=== PATIENT | female | born 1950 | race Caucasian/White ===

== ENCOUNTER 2016-06-11 17:33 | Emergency (ER) | payer MEDICARE ==
[2016-06-11 17:56] VITALS: BP 122/85
[2016-06-11] MEDS ORDERED: methylPREDNISolone 125 MG* 2 ML VIAL IM ONE (18:24)
[2016-06-11] MEDS ORDERED: Ipratropium 0.5MG/2.5ML NEB* 0.5 MG/2.5 ML NEB.SOLN INH ONE (18:24)
[2016-06-11] MEDS ORDERED: Albuterol 2.5 MG/3 ML NEB.SOL* (0.083%) INH ONE (18:24)
--- NOTE | 2016-06-11 18:24 | UC ---
Respiratory Complaint HPI - History of Current Complaint Chief Complaint: UCRespiratory Stated Complaint: COUGH/ABD AND SIDE PAIN Time Seen by Provider: 06/11/16 18:06 Hx Obtained From: Patient Hx Last Menstrual Period: unknown ?: No Onset/Duration: Sudden Onset, Lasting Weeks - 1, Worse Since - at night Timing: Constant Severity Initially: Mild Severity Currently: Moderate Associated Signs And Symptoms: Positive: Dyspnea, Chills, Pleuritic Chest Pain - with coughing, Wheezing, URI, Nasal Congestion, Sinus Discomfort Related History: Seasonal Allergies - Risk Factors Cardiac Risk Factors: Family History Pseudomonas Risk Factors: Negative - Allergies/Home Medications Allergies/Adverse Reactions: Allergies Allergy/AdvReac Type Severity Reaction Status Date / Time Adhesive Tape AdvReac Intermediate Rash Verified 06/11/16 17:56 ENVIRONMENTAL/SEASONAL Allergy ASTHMA Uncoded 06/11/16 17:56 FLAREUPS Home Medications: Home Medications Losartan TAB* [Cozaar TAB*] 50 mg PO BID 06/11/16 [History Confirmed 06/11/16] PMH/Surg Hx/FS Hx/Imm Hx Endocrine History Of: Reports: Diabetes - non insulin dependent Cardiovascular History Of: Reports: Hypertension Respiratory History Of: Reports: Asthma - MILD ASTHMA GI/ History Of: Reports: Kidney Stones - HAS HAD LASER FOR STONES; PRESENTLY ON THE LEFT- - Surgical History Surgical History: Yes Surgery Procedure, Year, and Place: APPY AGE 3. TONSILLECTOMY AGE 12-[facility]. LEFT HIP FRACTURE 11/2009 PIN/PLATE-[facility]. KIDNEY STONES X2 2010-[facility] - Family History Known Family History: Positive: Cardiac Disease, Hypertension, Diabetes - Social History Occupation: Retired Lives: With Family Alcohol Use: Rare Substance Use Type: None Smoking Status (MU): Former Smoker Type: Cigarettes Have You Smoked in the Last Year: No When Did the Patient Quit Smoking/Using Tobacco: - Immunization History Most Recent Influenza Vaccination: 03/06/15 Review of Systems Constitutional: Chills ENT: Sore Throat Respiratory: Shortness Of Breath - worse at night with wheezing., Cough Cardiovascular: Chest Pain - with coughing Neurological: Headache All Other Systems Reviewed And Are Negative: Yes Physical Exam Triage Information Reviewed: Yes Appearance: No Pain Distress, Ill-Appearing, Obese Vital Signs: Initial Vital Signs Temp 97.9 F 01/07/17 17:51 Pulse 81 06/11/16 17:51 Resp 16 06/11/16 17:51 BP 122/85 06/11/16 17:51 Pulse Ox 94 06/11/16 17:51 Vital Signs Reviewed: Yes Eyes: Positive: Conjunctiva Inflamed ENT: Positive: Pharynx normal, TMs normal Neck exam: Normal Respiratory: Positive: Wheezing - diffuse expiratory wheezes Cardiovascular: Positive: RRR, No Murmur Abdomen Description: Negative: Nontender - Tender upper abdominal wall. Musculoskeletal Exam: Normal Neurological Exam: Normal Psychological Exam: Normal Skin Exam: Normal UC Diagnostic Evaluation - Laboratory O2 Sat by Pulse Oximetry: 94 Re-Evaluation - Re-Evaluation First Eval Re-Evaluation Time: 18:45 Change: Improved - Able to take deep breaths. Wheezing significantly better. Respiratory Course/Dx - Differential Dx/Diagnosis Differential Diagnosis/HQI/PQRI: Asthma, Lower Resp Infection, Sinusitis Provider Diagnoses: Acute URI. Acute bronchospasm. Muscle strain abdominal wall. Discharge - Discharge Plan Condition: Stable Disposition: HOME Prescriptions: Acetaminop/Codeine 30 MG TAB* [Tylenol/Codeine 30 MG TAB*] 1 tab PO Q6H PRN #20 tab MDD 4 PRN Reason: Pain - Chest Amoxicillin (*) 875 mg PO BID #20 tab predniSONE TAB* [Deltasone TAB*] 20 mg PO DAILY #18 tab Patient Education Materials: Upper Respiratory Infection (ED), Bronchospasm (ED ), Prednisone (By mouth), How to Use a Metered-Dose Inhaler (ED), Sinusitis (ED) , Amoxicillin (By mouth) Referrals: Gege Espino MD [Primary Care Provider] - 2 Days (Recheck to make sure improving.)
[2016-06-11] MEDS ORDERED: Albuterol HFA INHALER* 8 gm MDI INH ONE (18:44)
[2016-06-11] MEDS ORDERED: Amoxicillin PO (*) 500 MG CAP PO ONE (18:51)
== END 2016-06-11 19:19 | disposition home or self-care (01) ==
LOC: UCCORT 17:33
DX: J06.9 Acute upper respiratory infection, unspecified (principal); J98.01 Acute bronchospasm; S39.011A Strain of muscle, fascia and tendon of abdomen, initial encounter; X58.XXXA Exposure to other specified factors, initial encounter; Y93.9 Activity, unspecified; Y92.9 Unspecified place or not applicable; Z87.891 Personal history of nicotine dependence
CPT/HCPCS: 96372; 99213; A9270-GY; G0463; J2930; J7644

== ENCOUNTER 2017-04-16 15:43 | Inpatient (IN) | payer MEDICARE, OTHER ==
[2017-04-16] MEDS ORDERED: Diltiazem IV* 5 MG/ML 5 ML VIAL (for loading dose/IV Push) (25 MG) IV SLOW PU ONE (16:11)
[2017-04-16] MEDS ORDERED: Diltiazem DRIP* 100 MG/100 ML ADDV.BAG IVPB ONE (16:11)
[2017-04-16 16:21] LABS: Hematocrit 36 % (35-47); Hemoglobin 12.2 g/dl (12.0-16.0); Mean Corpuscular HGB Conc 34 g/dl (31-36); Mean Corpuscular Hemoglobin 30 pg (27-31); Mean Corpuscular Volume 88 fL (80-97); Mean Platelet Volume 9 um3 (7.4-10.4); Red Blood Count 4.09 10^6/ul (4.0-5.4); Red Cell Distribution Width 13 % (10.5-15); White Blood Count 25.7 10^3/ul (3.5-10.8)
[2017-04-16 16:23] LABS: Add Diff/Slide Review? Slide Review Added; Comments Flag Yes
[2017-04-16 16:33] LABS: Albumin 3.5 g/dL (3.2-5.2); Calcium 10.3 mg/dL (8.6-10.3); EGFR African American 36.6 (>60); EGFR Non-African American 28.4 (>60); Globulin 3.6 g/dL (2-4); Magnesium 1.6 mg/dL (1.9-2.7); Potassium 3.2 mmol/L (3.5-5.0); Total Bilirubin 0.8 mg/dL (0.2-1.0); Total Protein 7.1 g/dL (6.4-8.9)
[2017-04-16 16:38] LABS: Troponin I 0.06 ng/mL (<0.04)
[2017-04-16] MEDS ORDERED: Magnesium Sulfate 2 GM IV* 2 GM/50 ML BAG IVPB ONE (16:52)
--- NOTE | 2017-04-16 17:06 | RAD ---
INDICATION: Short of breath chest x-ray COMPARISON: Chest x-ray April 26, 2015 TECHNIQUE: An AP portable view obtained at 1644 hours is submitted. FINDINGS: Bones/Soft Tissues: There are no acute bony findings. Cardiomediastinal: The cardiac silhouette is difficult to evaluate given the airspace disease in the left chest. The mediastinum is shifted to the left Lungs: The right lung is clear. There is opacification of the lower three quarters of the left hemithorax. Pleura: Suspect left-sided pleural fluid. Other: Possible eventration left hemidiaphragm. IMPRESSION: VOLUME LOSS LEFT CHEST WITH NEAR COMPLETE OPACIFICATION OF THE LEFT HEMITHORAX. SUGGEST CONTRAST ENHANCED CT IMAGING OF THE CHEST.
[2017-04-16] MEDS ORDERED: NS 0.9% 1000 ML* 2,000 ML IV ONE (17:25)
[2017-04-16 17:32] LABS: TSH (Thyroid Stimulating Horm) 1.68 mcIU/mL (0.34-5.60)
--- NOTE | 2017-04-16 17:36 | RAD ---
INDICATION: Abnormal chest x-ray . Cough. COMPARISON: Chest x-ray same date; CT abdomen pelvis November 14, 2015 TECHNIQUE: Axial source images were obtained from the thoracic inlet to the symphysis pubis. This examination was ordered using without oral or intravenous contrast and therefore has inherent limitations when used to evaluate other intrathoracic, intra-abdominal, or intrapelvic pathology. Consider conventional contrast enhanced imaging if clinically CHEST FINDINGS: Neck/thyroid: The thyroid is heterogeneous with left lobe enlargement. There are left thyroid calcifications. Chest wall: There are no acute abnormalities of the bony thorax or chest wall. There is no supraclavicular, infraclavicular, or axillary lymphadenopathy. Lungs : There is volume loss in the left chest with mediastinal shift to left. There is extensive consolidative change/atelectasis. Within the limits of noncontrast examination no underlying mass is seen. However, bronchoscopy is indicated to evaluate for post obstructive process such is no endobronchial lesion or mucous plugging. The right lung is clear. Cardiomediastinal structures: Mediastinum is shifted to the left. The heart is normal in size. There is no pericardial effusion. No aneurysm is seen. There are are several lymph nodes in the prevascular space which are top normal in size. Pleura : Trace left-sided pleural fluid. ABDOMINAL/PELVIC FINDINGS: Liver: The liver is mildly enlarged. There is no mass on noncontrast evaluation. Gallbladder: There are no calcified gallstones. There is no evidence of wall thickening or pericholecystic fluid. Spleen: The spleen is normal in size. There is no mass on noncontrast evaluation. Pancreas: No focal pancreatic abnormality or ductal dilatation is seen.. Adrenal glands: There is no evidence of adrenal mass. Kidneys: Bilateral nonobstructive nephrolithiasis. There is resolution of right-sided hydronephrosis. No focal renal parenchymal mass is seen within the limits of noncontrast imaging. There is a retractor aortic left renal vein Adenopathy: There is no evidence of adenopathy by size criteria. Fluid collections: There are no free or localized fluid collections. Vessels: There are mild atherosclerotic changes of the aorta. There is no aneurysm. 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 GI tract: Limited without oral contrast. No obstructive process is identified. Evaluation of the rectum and sigmoid colon is further limited due to beam hardening artifact from bilateral orthopedic hardware. Pelvic organs: Limited evaluation due to beam hardening artifact Bladder: Limited evaluation due to beam hardening artifact. Abdominal and pelvic soft tissues: The extraperitoneal abdominal and pelvic soft tissues appear normal.. Osseous structures: No acute osseous change. Spondylitic change of the thoracolumbar spine. There is total hip replacement the right. There is a Amador screw on the left. IMPRESSION: 1. Imaging was requested without oral or intravenous contrast limiting to inherent limitations. 2. Extensive patchy consolidative changes on the left consistent with infiltrate or atelectasis. Suggest bronchoscopy to evaluate for an endobronchial lesion or mucous plugging. Suggest follow-up radiographs and/or contrast enhanced CT imaging the chest. 3. Mild hepatomegaly. 4. Bilateral nonobstructive nephrolithiasis 5. Limited evaluation of uterus and bladder due to beam hardening artifact from orthopedic procedures.
[2017-04-16] MEDS ORDERED: Digoxin IV* 0.5 MG/2 ML AMP (0.25 MG/ML) IV SLOW PU ONE ×2 (17:49→23:50)
[2017-04-16] MEDS ORDERED: Levofloxacin 750 MG IVPREMIX(* 750 MG/150 ML BAG IVPB ONE (17:51)
[2017-04-16] MEDS ORDERED: Potassium Chlor TAB* 20 MEQ TAB.ER PO ONE (17:53)
[2017-04-16] MEDS ORDERED: Piperacillin/Tazobac ADVAN(*) 3.375 GM in NS 0.9% 100 ML* 100 ML IVPB ONE (17:55)
[2017-04-16] MEDS ORDERED: Amiodarone 150 MG IVPREMIX* 150 MG/100 ML BAG IV ONE (18:00)
[2017-04-16] MEDS ORDERED: Zosyn per Pharmacy* NOTE FOLLOW UP SCH (18:00)
[2017-04-16] MEDS ORDERED: Heparin VIAL(*) 5000 UNITS/ML VIAL (FIVE THOUSAND) IV SCH (18:00)
[2017-04-16] MEDS ORDERED: Heparin DRIP 25,000 UNITS(*) 25,000 UNITS/500 ML BAG IV SCH (18:00)
[2017-04-16] MEDS ORDERED: Amiodarone 360 MG IVPREMIX* 360 MG/200 ML BAG IV ONE (18:10)
[2017-04-16] MEDS ORDERED: Albuterol 2.5 MG/3 ML NEB.SOL* (0.083%) INH PRN (18:13)
[2017-04-16] MEDS ORDERED: Dextrose 50% Syringe 50 ML* 25 GM/50 ML SYRINGE IV PUSH PRN (18:17)
--- NOTE | 2017-04-16 18:37 | ED ---
Jovita Dee SooYoung, scribed for Aleksandar English MD on 04/16/17 at 1608 . Shortness of Breath - HPI Summary HPI Summary: A 67 y/o F presents to ED with c/o SOB onset 2-3 days ago. Associated sx: mild abd pain, unproductive cough, racing palpitations. Pt is unsure if she's had a fever recently. Aggravating factors: deep breaths. Pt took Robitussin to no relief. PMHx: DM, HTN. Pt is medication non-compliant. PCP is in [place]. - History of Current Complaint Chief Complaint: EDShortnessOfBreath Time Seen by Provider: 04/16/17 16:05 Hx Obtained From: Patient, Family/Blueprint Reproducer Onset/Duration: Lasting Days, Still Present Current Severity: Moderate Dyspnea At: Rest Aggrevating Factors: Deep Breaths Associated Signs & Symptoms: Cough (Nonproductive) Related History: Obesity - Allergy/Home Medications Allergies/Adverse Reactions: Allergies Allergy/AdvReac Type Severity Reaction Status Date / Time Adhesive Tape AdvReac Intermediate Rash Verified 06/11/16 17:56 ENVIRONMENTAL/SEASONAL Allergy ASTHMA Uncoded 06/11/16 17:56 FLAREUPS Home Medications: Home Medications A lbuterol Hfa (PREPAK) 2 puff INH Q6H PRN 04/16/17 [History Confirmed 04/16/17] Pioglitazone HCl [Pioglitazone HCl] 15 mg PO QAM 04/16/17 [History Confirmed 05/21] PMH/Surg Hx/FS Hx/Imm Hx Previously Healthy: No Endocrine/Hematology History: Reports: Hx Diabetes - non insulin dependent Cardiovascular History: Reports: Hx Hypertension Comment Only: Other Cardiovascular Problems/Disorders - HIGH CHOLESTEROL Respiratory History: Reports: Hx Asthma - MILD ASTHMA GI History: Reports: Hx Gastroesophageal Reflux Disease - CONTROLLED WITH MEDICATION History: Reports: Hx Kidney Stones - HAS HAD LASER FOR STONES; PRESENTLY ON THE LEFT- Musculoskeletal History: Reports: Hx Arthritis - BILAT. HIPS Sensory History: Reports: Hx Cataracts, Hx Contacts or Glasses - GLASSES Denies: Hx Hearing Aid Opthamlomology History: Reports: Hx Cataracts, Hx Contacts or Glasses - GLASSES - Surgical History Surgery Procedure, Year, and Place: APPY AGE 3. TONSILLECTOMY AGE 12-[facility]. LEFT HIP FRACTURE 11/2009 PIN/PLATE-[facility]. 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 The skin is warm and dry and skin color reflects adequate perfusion. HEENT: The head is normocephalic and atraumatic. The pupils are equal and reactive. The conjunctivae are clear and without drainage. Nares are patent and without drainage. Mouth reveals moist mucous membranes and the throat is without erythema and exudate. The external ears are intact. The ear canals are patent and without drainage. The tympanic membranes are intact. Neck is supple with full range of motion and non-tender. There are no carotid bruits. There is no neck vein distension. Respiratory: Chest is non-tender. There are decreased breath sounds on L. Cardiovascular: Heart is tachy and irregular. There is no murmur or rub auscultated. There is no peripheral edema and pulses are symmetrical and equal. Abdomen: The abdomen is soft and non-tender. There are normal bowel sounds heard in all four quadrants and there is no organomegaly palpated. Musculoskeletal: There is no back pain noted. Extremities are non-tender with full range of motion. There is good capillary refill. There is no peripheral edema or calf tenderness elicited. Neurological: Patient is alert and oriented to person, place and time. The patient has symmetrical motor strength in all four extremities. Cranial nerves are grossly intact. Deep tendon reflexes are symmetrical and equal in all four extremities. Psychiatric: The patient has an appropriate affect and does not exhibit any anxiety or depression. Triage Information Reviewed: Yes Vital Signs On Initial Exam: Initial Vitals Temp Pulse Resp BP Pulse Ox 99.9 F 103 24 99/80 89 04/16/17 15:51 04/16/17 15:51 04/16/17 15:51 04/16/17 15:51 04/16/17 15:51 Vital Signs Reviewed: Yes Diagnostics - Vital Signs Vital Signs Temp Pulse Resp BP Pulse Ox 04/16/17 15:51 99.9 F 103 24 99/80 89 - Laboratory Lab Results: Lab Results 04/16/17 04/16/17 04/16/17 Range/Units 16:05 16:05 16:05 WBC 25.7 H (3.5-10.8) 10^3/ul RBC 4.09 (4.0-5.4) 10^6/ul Hgb 12.2 (12.0-16.0) g/dl Hct 36 (35-47) % MCV 88 (80-97) fL MCH 30 (27-31) pg MCHC 34 (31-36) g/dl RDW 13 (10.5-15) % Plt Count 384 (150-450) 10^3/ul MPV 9 (7.4-10.4) um3 Neut % (Auto) 75.6 (38-83) % Lymph % (Auto) 17.1 L (25-47) % Levy % (Auto) 6.3 (1-9) % Eos % (Auto) 0 (0-6) % Baso % (Auto) 1.0 (0-2) % Absolute Neuts (auto) 19.4 H (1.5-7.7) 10^3/ul Absolute Lymphs (auto) 4.4 (1.0-4.8) 10^3/ul Absolute Monos (auto) 1.6 H (0-0.8) 10^3/ul Absolute Eos (auto) 0 (0-0.6) 10^3/ul Absolute Basos (auto) 0.3 H (0-0.2) 10^3/ul Absolute Nucleated RBC 0.02 10^3/ul Nucleated RBC % 0.1 INR (Anticoag Therapy) (0.89-1.11) APTT D-Dimer, Quantitative (Less Than 230) ng/mL Sodium 129 L (133-145) mmol/L Potassium 3.2 L (3.5-5.0) mmol/L Chloride 94 L (101-111) mmol/L Carbon Dioxide 23 (22-32) mmol/L Anion Gap 12 H (2-11) mmol/L BUN 41 H (6-24) mg/dL Creatinine 1.78 H (0.51-0.95) mg/dL Est GFR ( Amer) 36.6 (>60) Est GFR (Non-Af Amer) 28.4 (>60) BUN/Creatinine Ratio 23.0 H (8-20) Glucose 297 H (70-100) mg/dL Lactic Acid (0.5-2.0) mmol/L Calcium 10.3 (8.6-10.3) mg/dL Magnesium 1.6 L (1.9-2.7) mg/dL Total Bilirubin 0.80 (0.2-1.0) mg/dL AST 12 L (13-39) U/L ALT 12 (7-52) U/L Alkaline Phosphatase 70 (34-104) U/L Troponin I 0.06 H* (<0.04) ng/mL B-Natriuretic Peptide 194 H ( - 100) pg/mL Total Protein 7.1 (6.4-8.9) g/dL Albumin 3.5 (3.2-5.2) g/dL Globulin 3.6 (2-4) g/dL Albumin/Globulin Ratio 1.0 (1-3) TSH 1.68 (0.34-5.60) mcIU/mL 04/16/17 04/16/17 Range/Units 16:05 16:05 WBC (3.5-10.8) 10^3/ul RBC (4.0-5.4) 10^6/ul Hgb (12.0-16.0) g/dl Hct (35-47) % MCV (80-97) fL MCH (27-31) pg MCHC (31-36) g/dl RDW (10.5-15) % Plt Count (150-450) 10^3/ul MPV (7.4-10.4) um3 Neut % (Auto) (38-83) % Lymph % (Auto) (25-47) % Levy % (Auto) (1-9) % Eos % (Auto) (0-6) % Baso % (Auto) (0-2) % Absolute Neuts (auto) (1.5-7.7) 10^3/ul Absolute Lymphs (auto) (1.0-4.8) 10^3/ul Absolute Monos (auto) (0-0.8) 10^3/ul Absolute Eos (auto) (0-0.6) 10^3/ul Absolute Basos (auto) (0-0.2) 10^3/ul Absolute Nucleated RBC 10^3/ul Nucleated RBC % INR (Anticoag Therapy) 1.14 H (0.89-1.11) APTT Pending D-Dimer, Quantitative 388 H (Less Than 230) ng/mL Sodium (133-145) mmol/L Potassium (3.5-5.0) mmol/L Chloride (101-111) mmol/L Carbon Dioxide (22-32) mmol/L Anion Gap (2-11) mmol/L BUN (6-24) mg/dL Creatinine (0.51-0.95) mg/dL Est GFR ( Amer) (>60) Est GFR (Non-Af Amer) (>60) BUN/Creatinine Ratio (8-20) Glucose (70-100) mg/dL Lactic Acid 2.4 H* (0.5-2.0) mmol/L Calcium (8.6-10.3) mg/dL Magnesium (1.9-2.7) mg/dL Total Bilirubin (0.2-1.0) mg/dL AST (13-39) U/L ALT (7-52) U/L Alkaline Phosphatase (34-104) U/L Troponin I (<0.04) ng/mL B-Natriuretic Peptide ( - 100) pg/mL Total Protein (6.4-8.9) g/dL Albumin (3.2-5.2) g/dL Globulin (2-4) g/dL Albumin/Globulin Ratio (1-3) TSH (0.34-5.60) mcIU/mL Result Diagrams: 04/16/17 16:05 04/16/17 16:05 Lab Statement: Any lab studies that have been ordered have been reviewed, and results considered in the medical decision making process. - Radiology CXR Xray Interpretation: Positive (See Comments) - IMPRESSION: VOLUME LOSS LEFT CHEST WITH NEAR COMPLETE OPACIFICATION OF THE LEFT HEMITHORAX. SUGGEST CONTRAST ENHANCED CT IMAGING OF THE CHEST. ED physician has reviewed this report and agrees. Radiology Interpretation Completed By: Radiologist - CT A/P CT Interpretation: Positive (See Comments) - IMPRESSION: 1. Imaging was requested without oral or intravenous contrast limiting to inherent limitations. 2. Extensive patchy consolidative changes on the left consistent with infiltrate or atelectasis. Suggest bronchoscopy to evaluate for an endobronchial lesion or mucous plugging. Suggest follow-up radiographs and/or contrast enhanced CT imaging the chest. 3. Mild hepatomegaly. 4. Bilateral nonobstructive nephrolithiasis 5. Limited evaluation of uterus and bladder due to beam hardening artifact from orthopedic procedures. ED physician has reviewed this radiology report and agrees. CT Interpretation Completed By: Radiologist - EKG 1601 EKG Rhythm: Atrial Fibrillation - with rapid response Course/Dx - Course Course Of Treatment: Ms. Jacobo presented with a cough and SOB and while here, went into A-fib with RVR. She had no breath sounds on the left and a CXR showed a very large infiltrate. She was treated with cardizem, fluids and antibiotics. Before she went into A-fib, she was not tachy and didn't meet sepsis criteria. Her WBC's were markedly increased. - Diagnoses Provider Diagnoses: Pneumonia, Atrial fibrillation with rapid ventricular response - Physician Notifications Discussed Care of Patient With: Lisette Garner - hospitalist Time Discussed With Above Provider: 17:52 Instructed by Provider To: Admit As Inpatient - Critical Care Time Critical Care Time: 30-74 min Discharge - Discharge Plan Condition: Stable Disposition: ADMITTED TO [facility] Referrals: Gege Espino MD [Primary Care Provider] - The documentation as recorded by the Jovita bowman SooYoung accurately reflects the service I personally performed and the decisions made by me, Aleksandar English MD.
[2017-04-16] MEDS: Albuterol/Ipratropium NEB.SOL* Albuterol 2.5 MG/Ipratropium 0.5 MG 3 ML INH SCH ×2 (20:18→23:47)
[2017-04-16] MEDS: NS 0.9% 1000 ML* 1,000 ML IV SCH (20:24)
[2017-04-16] MEDS: Pantoprazole IV* 40 MG IV SCH (20:29)
[2017-04-16] MEDS: guaiFENesin ER TAB 600 MG PO SCH (20:29)
[2017-04-16] MEDS: methylPREDNISolone 125 MG* 2 ML VIAL IV SCH (20:29)
[2017-04-16] MEDS: guaiFENesin LIQ* 100 MG/5 ML UDC PO PRN (20:30)
[2017-04-16] MEDS: Acetaminophen TAB* 325 MG PO PRN (20:30)
[2017-04-16] MEDS: Potassium Chlor TAB* 20 MEQ TAB.ER PO SCH (20:30)
[2017-04-16] MEDS: Insulin LISPRO* 1 UNITS UNIT SUBCUT SCH (21:08)
[2017-04-16] MEDS: ZOSYN 3.375 GM Q8H per EXTENDED INFUSION IVPB SCH ×2 (22:04)
[2017-04-16 23:05] LABS: Urine Bacteria Absent (Absent); Urine Bilirubin Negative (Negative); Urine Glucose 1+(50 mg/dL) (Negative); Urine Nitrite Negative (Negative)
--- NOTE | 2017-04-17 01:54 | HP ---
CC: Dr. Gege Espino * MEDICINE HISTORY AND PHYSICAL: DATE OF ADMISSION: 04/16/17 PROVIDER: Prema Guajardo NP. ATTENDING PHYSICIAN: Dr. Lisette Garner * (dictated by Prema Guajardo NP) PRIMARY CARE PROVIDER: Dr. Gege Espino CHIEF COMPLAINT: Cough. HISTORY OF PRESENT ILLNESS: Ms. Jacobo is a 67-year-old female who came into the ED for further evaluation after starting with a cough approximately 3 to 4 days ago. The patient states that she has had a nonproductive cough as well as upper respiratory congestion and hoarseness. It has been ongoing for the past 4 days. When she coughs, she notes that she has significant pain on her left side, most particularly in the left lower quadrant of her abdomen. Again, the cough is nonproductive. She has been treating it with Robitussin, but states that this "makes me worse." She denies having any fevers, but does state that she has been having some hot flashes and has been utilizing a fan to keep herself cool. She reports decreased appetite and decreased p.o. intake, but denies chest pain or palpitations. She denies orthopnea. She does endorse a nonproductive cough as well as shortness of breath. She endorses left-sided abdominal pain with coughing and also she denies vomiting or diarrhea. She does state that she has had some dry heaving. She reports decreased urinary output, but denies any focal weakness or sensory loss, joint pains, chest pains , rashes or lesions. At baseline, she states "I do not walk very well." She attributes this to weakness and neuropathy. She has never taken anything for her neuropathy stating that her doctor said that she is "already on too many medications." Here in the ED, the patient's initial workup showed concerns for white blood cell count of 25.7, D-dimer of 388, sodium of 129, as well as potassium 3.2, magnesium 1.6, elevated BUN and creatinine. Lactic acid is 2.4, mildly elevated troponin of 0.06 and a chest x-ray and CT that showed significant consolidative changes on the left side. Patient's chest x-ray and CT scan are consistent with infiltrates. Additionally, the patient presented to the ED and was found to be in AFib with RVR with no prior known history. Her rates were as high as 160s to 180s. PAST MEDICAL HISTORY: Includes: 1. Type 2 diabetes with likely peripheral neuropathy. 2. Hypertension. 3. Hypercholesterolemia. 4. GERD. 5. History of kidney stones with lithotripsy. 6. Asthma. PAST SURGICAL HISTORY: Includes left hip fracture with internal fixation. HOME MEDICATIONS: 1. Albuterol 2 puffs inhaled q.6 hours p.r.n. 2. Metoprolol tartrate 100 mg b.i.d. 3. Gemfibrozil 600 mg b.i.d. 4. Clonidine 0.3 mg b.i.d. 5. Glipizide 10 mg b.i.d. 6. Metformin 1000 mg at 0800 and 1700. 7. Pioglitazone 15 mg q.a.m. 8. Losartan 50 mg b.i.d. 9. Hydrochlorothiazide 25 mg q.a.m. 10. Aspirin 81 mg q.a.m. ALLERGIES: Includes ADHESIVE TAPES and ENVIRONMENTAL AND SEASONAL ALLERGIES. FAMILY HISTORY: She reports lung disease in her mother and father. SOCIAL HISTORY: The patient reports a remote history of smoking and states that she did not smoke for very long. It was before she was . She denies alcohol or illicit drug use. She is not currently working. She lives at home with her . Liu Jacobo is also her surrogate decision maker. REVIEW OF SYSTEMS: A 12-point review of systems was completed. All pertinent positives and negatives are included in the HPI. All those not mentioned are negative. PHYSICAL EXAMINATION GENERAL: This is a 67-year-old female who appears older than stated age, who is lying in the ED stretcher. She is visibly tachypneic and working very hard. She appears acutely ill. VITAL SIGNS: Temperature 99.9, heart rate 142, respiratory rate 34, blood pressure 94/53, and O2 saturation is 95% on 5 L nasal cannula. HEENT: Head is atraumatic, normocephalic. Face is symmetrical. Pupils are equal, round, and reactive to light. Extraocular movements are intact. Oral mucosa is slightly dry. There is no oropharyngeal erythema or exudate. NECK: Supple. No JVD noted at this time. No lymphadenopathy appreciated. No carotid bruits heard. LUNGS: The patient has diminished lung sounds in the left side in all lobes with crackles heard in the lower lobe and wheezing heard throughout in the left side. The patient is using accessory muscles. CARDIAC: Tachycardic, irregular rate and rhythm. No murmurs, rubs or gallops noted. ABDOMEN: Soft, nondistended, mild tenderness with palpation especially to the left side. The patient does have positive CVA tenderness, left greater than right. EXTREMITIES: There is no peripheral edema. The patient has 2 + distal pulses throughout that are symmetric and equal. MUSCULOSKELETAL: The patient moves all extremities. Appears to have full range of motion to all extremities. SKIN: Limited assessment, but appears grossly intact. NEURO: Cranial nerves II through XII are grossly intact. Speech is clear. She is alert and oriented x4. Able to follow commands. No focal deficits noted. PSYCH: No agitation, anxiety, psychosis or depression noted. Affect is appropriate. LABORATORY DATA AND DIAGNOSTIC STUDIES: CBC: WBC 25.7, hemoglobin 12.2, hematocrit 36, platelet count 384. D-dimer 388. CMP: Sodium 129, potassium 3.2, chloride 94, carbon dioxide 23, BUN 41, creatinine 1.78, glucose 297, lactic acid 2.4, calcium 10.3, magnesium 1.6, total bilirubin 0.8, AST 12, ALT 12, alk phos 70. Troponin 0.06, BNP 194. Albumin 3.5. TSH 1.68. EKG shows atrial fibrillation with rapid ventricular rate of 186. No ST or T wave inversions to indicate acute ischemia. Chest x-ray shows volume loss of left chest with near complete opacification of the left hemithorax. CT of the chest, abdomen and pelvis, noncontrasted, shows extensive patchy consolidative changes on the left consistent with infiltrate or atelectasis. Suggest bronchoscopy to evaluate for an endobronchial lesion or mucus plugging. Suggest followup radiographs and contrast enhanced CT imaging of the chest. Mild hepatomegaly and bilateral nonobstructive nephrolithiasis. There is limited evaluation of the uterus and bladder due to beam hardening artifact from her orthopedic procedures. ASSESSMENT AND PLAN: This is a 67-year-old female with a past medical history significant for hypertension, type 2 diabetes, hypercholesterolemia, gastroesophageal reflux disease and asthma who presents today with concerns for new onset atrial fibrillation in the presence of left-sided pneumonia and sepsis. She will be admitted to the ICU for close monitoring. Plan is as follows: 1. Sepsis. The patient meets sepsis criteria on admission by systemic inflammatory response syndrome with elevated heart rate, tachypnea, leukocytosis , elevated lactic acid, hypoxia. The patient meets sepsis criteria on admission by SOFA criteria with a MAP of less than 70 as well as a qSOFA score of 2 for increased respiratory rate and systolic blood pressure less than 100. Per sepsis guidelines, the patient has received 2 L of IV fluids here in the ER. We will continue with aggressive hydration. Currently, the patient is ordered Zosyn to cover her pneumonia. Blood cultures have been ordered in the ER are pending. We will continue to follow and trend the patient's lactic acidosis until resolution. Additionally, we will complete the sepsis bundle by checking the patient's urine as there is a suspicion for potential infection there and monitor the patient in the ICU give her tenuous hemodynamic stability. 2. Left-sided pneumonia. Again, the patient has significant left-sided pneumonia. Etiology is unclear but includes post obstructive pneumonia with mucus plugging vs endobrachial lesion. Per CT, bronchoscopy was suggested, but given the patient's significant lung disease at this time, we will hold off on pursuing bronchoscopy this evening in order to focus on supporting the patient' s respiratory status, as well as providing antibiotic treatment for her pneumonia. Pulmonology could be consulted tomorrow. We will also be starting flutter valve therapy and treating the patient with IV steroids, and she is to receive Solu-Medrol q.8 hours for now. Again, she is ordered Zosyn. We will check a urine antigen for S. pneumoniae and legionella. The patient will be started on Vapotherm. 3. Acute hypoxic respiratory failure. Etiology is secondary to extensive left - sided pneumonia for which we will treat the patient with IV steroids as well as Vapotherm. 4. New onset paroxysmal atrial fibrillation. The patient denies any previously known history of atrial fibrillation. It is unclear as to how long she has been in atrial fibrillation, thought it may have been precipitated by sepsis. The patient was started on diltiazem drip here in the ED, but has significant hypotension from the diltiazem and likely secondary to the patient's sepsis. The patient's diltiazem has been stopped and we have switched to digoxin, which she will receive x2 doses and the patient has been started on amiodarone drip in order to help preserve the patient's blood pressure, especially in the presence of concomitant sepsis. The patient's CHAD2 VASC score is 4, which places her at a moderate to high risk and likely requires the patient to be on anticoagulation as an outpatient. Given her meal status, sepsis, need for steroids and other risk factors, we have opted to start her on a heparin drip at this time and could convert her to Eliquis or Xarelto once the patient becomes more hemodynamically stable. She does have an elevated D-dimer, which may be reflective of inflammatory causes in the presence of sepsis. Due to her renal function, we are unable to obtain a CT at this time, but given her new onset atrial fibrillation as well as her other risk factors for DVT, we will continue her on heparin drip, which should adequately treat the patient should she indeed have a pulmonary embolism. Once the patient stabilizes and hopefully if her renal function recovers, we could pursue a CTA, if indicated. The patient is ordered [id number] DuoNeb inhaler treatments per respiratory protocol as well as p.r.n. albuterol treatments. 5. Acute on chronic renal failure. I suspect the patient has a degree of chronic renal disease secondary to hypertension and diabetes as I do see that her creatinine on previous visits ranges from 0.96 to 1.55. The patient is only mildly above her baseline; however, I do suspect that she does have some acute process secondary to sepsis and dehydration. We will continue aggressive hydration and follow her renal function here in the hospital, her current GFR is 28.4. 6. Hyponatremia, likely secondary to dehydration. We will continue with IV fluids and follow her BMP tomorrow. 7. Hypokalemia, hypomagnesemia. Likely secondary to hydrochlorothiazide use at home as well as dehydration. Replete and follow labs in the morning. 8. History of type 2 diabetes. I will add on her A1c. The patient is on 3 different agents at home including metformin, glipizide, and pioglitazone, which we will hold. She will be on lispro sliding scale insulin given that she is now on IV steroids. I suspect that the patient's blood sugars will be elevated in the presence of steroid use and will likely require higher doses of the lispro and/or additional Lantus. Currently, we will start with lispro sliding scale and adjust as needed. 9. Hypertension. Currently not an issue as the patient is hypotensive in the presence of sepsis. We will hold her home antihypertensives and resume when appropriate. 10. Hypercholesterolemia. Hold gemfibrozil as the patient is not taking p.o very consistently. Resume when appropriate. 11. History of gastroesophageal reflux disease. She is not on any chronic medications. We will add on pantoprazole while here in the hospital. 12. FEN: The patient is on a consistent carbohydrate diet and IV fluids. 13. DVT prophylaxis: Heparin drip and SCDs. 14. Code status: The patient is a full code. TIME SPENT: Greater than 90 minutes was spent on this admission, which includes critical care time and more than half the time was spent [id number] with the patient obtaining history and physical, performing physical examination , reviewing the plan of care. Plan of care was also reviewed with my attending , Dr. Garner, who is in agreement. PREMA GUAJARDO NP [id number]/CPS #: [id number] BRAULIO
[2017-04-17] MEDS: Heparin VIAL(*) 5000 UNITS/ML VIAL (FIVE THOUSAND) IV SCH ×3 (03:35→21:30)
[2017-04-17] MEDS: methylPREDNISolone 125 MG* 2 ML VIAL IV SCH ×3 (03:36→20:17)
[2017-04-17] MEDS: Albuterol/Ipratropium NEB.SOL* Albuterol 2.5 MG/Ipratropium 0.5 MG 3 ML INH SCH ×6 (03:43→23:26)
[2017-04-17] MEDS: NS 0.9% 1000 ML* 1,000 ML IV SCH ×3 (04:36→20:54)
[2017-04-17 05:46] LABS: Hematocrit 31 % (35-47); Hemoglobin 10.4 g/dl (12.0-16.0); Mean Corpuscular HGB Conc 34 g/dl (31-36); Mean Corpuscular Hemoglobin 30 pg (27-31); Mean Corpuscular Volume 88 fL (80-97); Mean Platelet Volume 9 um3 (7.4-10.4); Red Blood Count 3.49 10^6/ul (4.0-5.4); Red Cell Distribution Width 13 % (10.5-15); White Blood Count 13.3 10^3/ul (3.5-10.8)
[2017-04-17 05:47] LABS: Add Diff/Slide Review? Slide Review Added; Comments Flag Yes
[2017-04-17 06:03] LABS: BUN/Creatinine Ratio 29.8 (8-20); EGFR African American 55.5 (>60); EGFR Non-African American 43.1 (>60); Magnesium 2.1 mg/dL (1.9-2.7); Potassium 4.1 mmol/L (3.5-5.0)
[2017-04-17] MEDS: ZOSYN 3.375 GM Q8H per EXTENDED INFUSION IVPB SCH ×6 (06:03→23:00)
[2017-04-17] MEDS: Insulin LISPRO* 1 UNITS UNIT SUBCUT SCH ×3 (07:53→17:25)
[2017-04-17] MEDS: Potassium Chlor TAB* 20 MEQ TAB.ER PO SCH ×2 (07:53→20:18)
[2017-04-17] MEDS: guaiFENesin ER TAB 600 MG PO SCH ×2 (07:53→20:18)
[2017-04-17] MEDS: guaiFENesin LIQ* 100 MG/5 ML UDC PO PRN (08:44)
[2017-04-17] MEDS: Heparin DRIP 25,000 UNITS(*) 25,000 UNITS/500 ML BAG IV SCH (11:40)
[2017-04-17] MEDS: Acetaminophen TAB* 325 MG PO PRN (17:08)
--- NOTE | 2017-04-17 19:18 | CONSULT ---
Consult Consult: Pulmonary consultation Date of consult :04/17/17 Consultation requested by : Dr Juno Spicer Reason for consultation: Abnormal CT chest CC: SOB, cough HPI: 67 y o f with remote h/o smoking presented for evaluation of cough, dry in nature initially, more moist and productive currently. Sx started as upper airway congestion and stuffiness and worsened with progressive cough and chest discomfort sec to cough. Reports hot flashes however has not measured fever. Also reports SOB. Reports decreased appetite and oral intake. Denies chest pain , palpitations, nausea, vomiting, diarrhea, headaches, rash. She was noted to have leucocytosis, elevated lactate, hyponatremia, elevated troponins, a.fib with RVR upon evaluation in ED. She was also hypoxic and was placed on supplemental O2, needing 4L at rest. She was started on broad spectrum abx for PNA and is currently in ICU. Pt was seen and examined at bedside. Pt reports no change in sx since admission. Denied recent sick contacts. No h/o breathing issues in past. I have personally reviewed CXR and CT chest and with pt- Evidence of atelectasis involving Lt lung and endobronchial lesion with near complete occlusion of KATHERYN and resultant atelectasis, no significant mediastinal or hilar adenopathy noted. PMHx: DM-2 with peripheral neuropathy HTN Dyslipidemia GERD Kidney stones Asthma PSHx: Lt hip fracture with internal fixation Home Medications Medication Instructions metFORMIN* [Glucophage 1000 MG TAB 1,000 mg PO 0800,1700 *] Aspirin Low Dose CHEW TAB* 81 mg PO QAM [Aspirin Low Dose TAB*] Cholecalciferol [Vitamin D3] 5,000 unit PO EVERY OTHER DAY Cyanocobalamin TAB* [Vitamin B12 500 mcg PO QAM TAB*] Metoprolol Tartrate TAB* 100 mg PO BID [Lopressor TAB*] Gemfibrozil TAB* [Lopid TAB*] 600 mg PO BID Glipizide [Glipizide ER] 10 mg PO BID Clonidine HCl [Clonidine HCl 0.3 0.3 mg PO BID MG] Hydrochlorothiazide TAB* 25 mg PO QAM [Hydrodiuril TAB*] Losartan TAB* [Cozaar TAB*] 50 mg PO BID A lbuterol Hfa (PREPAK) 2 puff INH Q6H PRN Pioglitazone HCl [Pioglitazone HCl] 15 mg PO QAM All: Adhesive tape, seasonal Social Hx: Lives at home with her , former smoker, quit long time ago, denies ETOH or drug abuse ROS: All 14 systems reviewed and as per HPI O/E: Pt in bed in NAD Vital Signs Temp Pulse Resp BP Pulse Ox 98.2 F 107 24 142/86 95 04/17/17 18:01 04/17/17 18:01 04/17/17 18:01 04/17/17 18:01 04/17/17 18:01 HEENT: PERRLA, NO JVD Lungs: Diminished air entry b/l CVS: S1, S2+ Abd: Obese, BS+ Ext: Normal ROM Skin: NO rash or bruise Neuro: NO focal defecits Laboratory Results - last 24 hr 04/16/17 04/16/17 04/16/17 16:05 16:05 20:40 WBC RBC Hgb Hct MCV MCH MCHC RDW Plt Count MPV Neut % (Auto) Lymph % (Auto) Gage % (Auto) Eos % (Auto) Baso % (Auto) Absolute Neuts (auto) Absolute Lymphs (auto) Absolute Monos (auto) Absolute Eos (auto) Absolute Basos (auto) Absolute Nucleated RBC Nucleated RBC % APTT Sodium Potassium Chloride Carbon Dioxide Anion Gap BUN Creatinine Est GFR ( Amer) Est GFR (Non-Af Amer) BUN/Creatinine Ratio Glucose POC Glucose (mg/dL) Hemoglobin A1c 6.0 H Lactic Acid 1.4 Calcium Magnesium Troponin I Procalcitonin 1.9 H Urine Color Urine Appearance Urine pH Ur Specific Benjamin Urine Protein Urine Ketones Urine Blood Urine Nitrate Urine Bilirubin Urine Urobilinogen Ur Leukocyte Esterase Urine WBC (Auto) Urine RBC (Auto) Ur Squamous Epith Cells Uric Acid Crystals Urine Bacteria Ur Random Creatinine Ur Random Sodium Urine Glucose 04/16/17 04/16/17 04/16/17 20:40 21:00 22:35 WBC RBC Hgb Hct MCV MCH MCHC RDW Plt Count MPV Neut % (Auto) Lymph % (Auto) Gage % (Auto) Eos % (Auto) Baso % (Auto) Absolute Neuts (auto) Absolute Lymphs (auto) Absolute Monos (auto) Absolute Eos (auto) Absolute Basos (auto) Absolute Nucleated RBC Nucleated RBC % APTT Sodium Potassium Chloride Carbon Dioxide Anion Gap BUN Creatinine Est GFR ( Amer) Est GFR (Non-Af Amer) BUN/Creatinine Ratio Glucose POC Glucose (mg/dL) 271 H Hemoglobin A1c Lactic Acid Calcium Magnesium Troponin I 0.06 H* Procalcitonin Urine Color Yellow Urine Appearance Cloudy Urine pH 5.0 Ur Specific Benjamin 1.016 Urine Protein 1+(30 mg/dl) H Urine Ketones Negative Urine Blood Negative Urine Nitrate Negative Urine Bilirubin Negative Urine Urobilinogen Positive H Ur Leukocyte Esterase Negative Urine WBC (Auto) 1+(6-10/hpf) H Urine RBC (Auto) 1+(3-5/hpf) H Ur Squamous Epith Cells Present H Uric Acid Crystals Present H Urine Bacteria Absent Ur Random Creatinine Ur Random Sodium Urine Glucose 1+(50 mg/dl) H 04/16/17 04/17/17 04/17/17 22:35 00:05 02:45 WBC RBC Hgb Hct MCV MCH MCHC RDW Plt Count MPV Neut % (Auto) Lymph % (Auto) Gage % (Auto) Eos % (Auto) Baso % (Auto) Absolute Neuts (auto) Absolute Lymphs (auto) Absolute Monos (auto) Absolute Eos (auto) Absolute Basos (auto) Absolute Nucleated RBC Nucleated RBC % APTT 33.3 Sodium Potassium Chloride Carbon Dioxide Anion Gap BUN Creatinine Est GFR ( Amer) Est GFR (Non-Af Amer) BUN/Creatinine Ratio Glucose POC Glucose (mg/dL) Hemoglobin A1c Lactic Acid Calcium Magnesium Troponin I 0.04 H* Procalcitonin Urine Color Urine Appearance Urine pH Ur Specific Benjamin Urine Protein Urine Ketones Urine Blood Urine Nitrate Urine Bilirubin Urine Urobilinogen Ur Leukocyte Esterase Urine WBC (Auto) Urine RBC (Auto) Ur Squamous Epith Cells Uric Acid Crystals Urine Bacteria Ur Random Creatinine 107.52 Ur Random Sodium 20 Urine Glucose 04/17/17 04/17/17 04/17/17 05:30 05:30 07:43 WBC 13.3 H RBC 3.49 L Hgb 10.4 L Hct 31 L MCV 88 MCH 30 MCHC 34 RDW 13 Plt Count 260 MPV 9 Neut % (Auto) 79.9 Lymph % (Auto) 17.1 L Gage % (Auto) 2.6 Eos % (Auto) 0 Baso % (Auto) 0.4 Absolute Neuts (auto) 10.6 H Absolute Lymphs (auto) 2.3 Absolute Monos (auto) 0.3 Absolute Eos (auto) 0 Absolute Basos (auto) 0.1 Absolute Nucleated RBC 0.01 Nucleated RBC % 0 APTT Sodium 132 L Potassium 4.1 Chloride 103 Carbon Dioxide 24 Anion Gap 5 BUN 37 H Creatinine 1.24 H Est GFR ( Amer) 55.5 Est GFR (Non-Af Amer) 43.1 BUN/Creatinine Ratio 29.8 H Glucose 322 H POC Glucose (mg/dL) 305 H Hemoglobin A1c Lactic Acid Calcium 9.0 Magnesium 2.1 Troponin I Procalcitonin Urine Color Urine Appearance Urine pH Ur Specific Benjamin Urine Protein Urine Ketones Urine Blood Urine Nitrate Urine Bilirubin Urine Urobilinogen Ur Leukocyte Esterase Urine WBC (Auto) Urine RBC (Auto) Ur Squamous Epith Cells Uric Acid Crystals Urine Bacteria Ur Random Creatinine Ur Random Sodium Urine Glucose 04/17/17 04/17/17 04/17/17 10:47 11:50 17:08 WBC RBC Hgb Hct MCV MCH MCHC RDW Plt Count MPV Neut % (Auto) Lymph % (Auto) Gage % (Auto) Eos % (Auto) Baso % (Auto) Absolute Neuts (auto) Absolute Lymphs (auto) Absolute Monos (auto) Absolute Eos (auto) Absolute Basos (auto) Absolute Nucleated RBC Nucleated RBC % APTT 40.3 H Sodium Potassium Chloride Carbon Dioxide Anion Gap BUN Creatinine Est GFR ( Amer) Est GFR (Non-Af Amer) BUN/Creatinine Ratio Glucose POC Glucose (mg/dL) 389 H 347 H Hemoglobin A1c Lactic Acid Calcium Magnesium Troponin I Procalcitonin Urine Color Urine Appearance Urine pH Ur Specific Benjamin Urine Protein Urine Ketones Urine Blood Urine Nitrate Urine Bilirubin Urine Urobilinogen Ur Leukocyte Esterase Urine WBC (Auto) Urine RBC (Auto) Ur Squamous Epith Cells Uric Acid Crystals Urine Bacteria Ur Random Creatinine Ur Random Sodium Urine Glucose CXR, CT chest as described above in HPI I/R: 67 y o f with cough, productive of thick phleghm with evidence of air space opacities and consilidation of left lung with evidence of endobronchial obstruction involving KATHERYN- PNA with mucus plugging versus endobronchial lesion and post obstructive PNA c/w abx, O2 supplementation Will schedule pt for bronchoscopy for airway evaluation in am Procedure was discussed in detail with pt Associated risks and benefits were thoroughly discussed Risk of worsenign hypoxia and possible intubation was discussed Pt agreeable to bronchoscopy Will consider endobronchial biopsy if abnormal lesion noted and also obtain BAL for cytology and cx NPO after midnight Further recommendations pending bronch results D/w RN and RT Will d/w Dr Spicer
[2017-04-17] MEDS: Pantoprazole IV* 40 MG IV SCH (20:18)
--- NOTE | 2017-04-17 23:54 | PN ---
Subjective Date of Service: 04/17/17 Interval History: . Rounded on patient earlier today. Was generally comfortable, occasional coughing and SOB. Discussed that there was a mas son her CT chest and that I would be speaking with pulmonology (Dr. Kenyon) to see about a bronchoscopy. She understood and agreed. Family History: Unchanged from Admission Social History: Unchanged from Admission Past Medical History: Unchanged from Admission Objective Active Medications: . Acetaminophen (Tylenol Tab*) 650 mg PO Q4H PRN PRN Reason: FEVER/PAIN Last Admin: 04/17/17 17:08 Dose: 650 mg Albuterol (Ventolin 2.5 Mg/3 Ml Neb.Toya*) 2.5 mg INH Q2H PRN PRN Reason: SOB/WHEEZING Albuterol/Ipratropium (Duoneb (Albuterol 2.5 Mg/Ipratropium 0.5 Mg)) 1 neb INH [id number] AWAKE [facility] Last Admin: 04/17/17 23:26 Dose: Not Given Dextrose (D50w Syringe 50 Ml*) 12.5 gm IV PUSH .FOR FS < 60 - SS PRN PRN Reason: FS < 60 Guaifenesin (Mucinex*) 1,200 mg PO BID [facility] Last Admin: 04/17/17 20:18 Dose: 1,200 mg Heparin Sodium (Porcine) (Heparin Vial(*)) 0 units IV .PER PROTOCOL PAPI PRN Reason: Protocol Last Admin: 04/17/17 21:30 Dose: 3,200 units Sodium Chloride (Ns 0.9% 1000 Ml*) 1,000 mls @ 125 mls/hr IV PER RATE [facility] Last Admin: 04/17/17 20:54 Dose: 125 mls/hr Heparin Sodium/Dextrose (Heparin Drip 25,000 Units(*)) 25,000 units in 500 mls @ 0 mls/hr IV .NO INITIAL BOLUS PAPI; As Directed PRN Reason: Protocol Last Admin: 04/17/17 11:40 Dose: 31 mls/hr Piperacillin Sod/Tazobactam (Sod 3.375 gm/ Sodium Chloride) 100 mls @ 25 mls/ hr IVPB Q8H [facility] Last Admin: 04/17/17 14:47 Dose: 25 mls/hr Insulin Human Lispro (Humalog*) 0 units SUBCUT AC PAPI PRN Reason: Protocol Last Admin: 04/17/17 17:25 Dose: 12 units Methylprednisolone Sodium Succinate (Solu-Medrol 125mg *) 60 mg IV Q8H [facility] Last Admin: 04/17/17 20:17 Dose: 60 mg Pantoprazole Sodium (Protonix Iv*) 40 mg IV Q24H [facility] Last Admin: 04/17/17 20:18 Dose: 40 mg Pharmacy Consult (Zosyn Per Pharmacy*) 1 note FOLLOW UP .ZOSYN PER PHARMACY [facility] Potassium Chloride (Klor Con Er Tab*) 20 meq PO BID [facility] Last Admin: 04/17/17 20:18 Dose: 20 meq . Vital Signs 04/16/17 04/17/17 04/17/17 23:57 00:00 00:01 Temperature 98.4 F 98.4 F Pulse Rate 84 88 87 Respiratory 27 25 Rate Blood Pressure 131/67 (mmHg) O2 Sat by Pulse 96 96 Oximetry 04/17/17 04/17/17 04/17/17 00:30 01:00 01:30 Temperature 98.2 F 98.2 F 97.9 F Pulse Rate 77 82 79 Respiratory 22 22 19 Rate Blood Pressure 136/68 121/54 124/65 (mmHg) O2 Sat by Pulse 96 95 95 Oximetry Oxygen Devices in Use Now: Nasal Cannula Appearance: elderly, course features Eyes: No Scleral Icterus Ears/Nose/Mouth/Throat: Clear Oropharnyx Neck: Trachea Midline Respiratory: - - Very diminished/nearly absent L-sided breath sounds. Cardiovascular: RRR Abdominal: No Hepatosplenomegaly Lymphatic: No Cervical Adenopathy Extremities: No Edema Skin: No Rash or Ulcers Neurological: Alert and Oriented x 3 Lines/Tubes/Other Access: Clean, Dry and Intact Peripheral IV Nutrition: Taking PO's Result Diagrams: 04/17/17 05:30 04/17/17 05:30 Additional Lab and Data: . Microbiology and Other Data: Microbiology 04/16/17 22:35 Nasal Screen MRSA (PCR)(CARRIE) - Final Nasal Mrsa Negative 04/16/17 22:35 Legionella Urinary Antigen - Final Urine Negative Legionella Streptococcus pneumoniae Ag Screen - Final Negative S. pneumo Antigen Assess/Plan/Problems-Billing . Assessment: 67 year old woman with extensive L-sided post-obstrctive pneumonia and SEPSIS. Pulmonology consult requested for KATHERYN likely lung mass that will likely need biopsy. Past Medical History: DM-2 with peripheral neuropathy HTN Dyslipidemia GERD Kidney stones Asthma Current Meds: - Acetaminophen - Albuterol - Albuterol/Ipratropium - Dextrose - Guaifenesin - Heparin IV GTT - NS @ 125 - Piperacillin Sod/Tazobactam - Insulin Human Lispro - Methylprednisolone 60 mg IV Q8H - Pantoprazole 40 mg IV Q24H - Potassium 20 meq PO BID . - Patient Problems (1) Pneumonia Current Visit: Yes Status: Acute Priority: High Code(s): J18.9 - PNEUMONIA , UNSPECIFIED ORGANISM Comment: - IV antibiotics ongoing - Oxygen - Sputum and blood cultures - likely post-obstructive pna given CT chest results (2) Obstructive pneumonia Current Visit: Yes Status: Acute Priority: High Code(s): J18.9 - PNEUMONIA , UNSPECIFIED ORGANISM Comment: - anaerobic coverage - bronchoscopy 04/18 planned - pulmonology consult appreciated - NPO after MN (3) Paroxysmal A-fib Current Visit: Yes Status: Acute Priority: High Code(s): I48.0 - PAROXYSMAL ATRIAL FIBRILLATION Comment: - holding AC - rate controlled. (4) Sepsis Current Visit: Yes Status: Acute Priority: High Comment: - aggressive IVF - resolved with treatment - IV Abx for source control - Stress dose steroids --> taper down 04/18
[2017-04-18] MEDS: Albuterol/Ipratropium NEB.SOL* Albuterol 2.5 MG/Ipratropium 0.5 MG 3 ML INH SCH ×6 (03:34→23:26)
[2017-04-18] MEDS: Heparin DRIP 25,000 UNITS(*) 25,000 UNITS/500 ML BAG IV SCH (04:07)
[2017-04-18] MEDS: methylPREDNISolone 125 MG* 2 ML VIAL IV SCH ×2 (04:07→10:33)
[2017-04-18] MEDS: NS 0.9% 1000 ML* 1,000 ML IV SCH (04:12)
[2017-04-18 06:29] LABS: Hematocrit 29 % (35-47); Hemoglobin 9.6 g/dl (12.0-16.0); Mean Corpuscular HGB Conc 34 g/dl (31-36); Mean Corpuscular Hemoglobin 30 pg (27-31); Mean Corpuscular Volume 89 fL (80-97); Mean Platelet Volume 9 um3 (7.4-10.4); Red Blood Count 3.22 10^6/ul (4.0-5.4); Red Cell Distribution Width 13 % (10.5-15); White Blood Count 16.9 10^3/ul (3.5-10.8)
[2017-04-18 06:31] LABS: Add Diff/Slide Review? Slide Review Added; Comments Flag Yes
[2017-04-18 06:41] LABS: BUN/Creatinine Ratio 28.8 (8-20); EGFR Non-African American 52.9 (>60)
[2017-04-18 06:42] LABS: Calcium 9.1 mg/dL (8.6-10.3)
[2017-04-18] MEDS ORDERED: Lidocaine 2% VISCOUS* 15 ML UDC ONE (07:02)
[2017-04-18] MEDS ORDERED: Lidocaine 1% INJ* 10 MG/ML 30 ML SDV ONE (07:02)
[2017-04-18] MEDS ORDERED: fentaNYL* 50 MCG/ML 2 ML VIAL (100 MCG VIAL) ONE (07:13)
[2017-04-18] MEDS ORDERED: Flumazenil* 0.1 MG/ML 5 ML MDV ONE (07:13)
[2017-04-18] MEDS ORDERED: Midazolam* 1 MG/ML 10 ML VIAL (10 MG) ONE (07:14)
[2017-04-18] MEDS ORDERED: Naloxone* 0.4 MG/ML 1 ML VIAL ONE (07:14)
[2017-04-18] MEDS ORDERED: Midazolam* 1 MG/ML 10 ML VIAL (10 MG) IV ONE (08:03)
[2017-04-18] MEDS ORDERED: fentaNYL* 50 MCG/ML 2 ML VIAL (100 MCG VIAL) IV SLOW PU ONE (08:03)
[2017-04-18] MEDS: Insulin LISPRO* 1 UNITS UNIT SUBCUT SCH ×3 (10:33→17:58)
[2017-04-18] MEDS: ZOSYN 3.375 GM Q8H per EXTENDED INFUSION IVPB SCH ×4 (10:33→17:58)
[2017-04-18] MEDS: guaiFENesin ER TAB 600 MG PO SCH ×2 (10:34→20:20)
[2017-04-18] MEDS: Potassium Chlor TAB* 20 MEQ TAB.ER PO SCH (10:34)
--- NOTE | 2017-04-18 11:20 | PN ---
Progress Note - Progress Note Date of Service: 04/18/17 Note: CRITICAL CARE MEDICINE Date: 04/18/17 Time: 1030 SUBJECTIVE: Patient seen and examined. at bedside. PHYSICAL EXAM: Vital Signs: Reviewed. Hr 110s, st, Bp stable. rr up on 15l with sat 93% Neurologic: communicating, holds capacity HEENT: pupils equal. Sclera anicteric. Trachea midline. poor dentition Cardiovascular: tachy, S1 S2 distant Respiratory: marked dec bs on left upper with poor excursion and some coarse bs to left base; right clear Abdomen: Soft, obese, nt. Extremities: Warm. LABS: Reviewed. IMAGING: Reviewed. MEDICATIONS: Reviewed. 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 Cardiovascular: Perfusing. vol status ok. dc ivf Respiratory: attempting flutter valve this am but poor reserve and inability to aerate left. Given her work, place her on high flow and see how she can equilibrate as she needs to work to maintain left patency. at risk for ball valving. Metaneb may be beneficial. Question of patency will remain and whether early xrt indicated, +/- stent considerations even. See how she fairs conservatively today. Gastrointestinal: po diet. Renal/Metabolic: stable, except bun up with steroids. dc ivf. maintain po. Infectious Disease: on zosyn which should be adequate. cx neg thusfar. post bronch f/u. wbc back up post steroids. Hematology: will need onc eval with bx result. plenty more plans from there. no full anticoag needed for paf sec to sepsis now resolved. Endocrine: dec steroids to taper. lantus today and ssi. stay off metformin for now as will need panct with contrast soon Musculoskeletal: oob. dc fisher. Psych/Social: pt and expressed understanding. she expressed desires to aggressively push forward. Supportive and preventative care as ordered. Vaccine: needs address SUP: ppi VTE prophylaxis: heparin subq Disposition: ICU Code Status: Full Critical Care Time: 35min FAlex Hernandez DO
[2017-04-18] MEDS ORDERED: predniSONE TAB* 20 MG PO ONE (12:00)
[2017-04-18] MEDS ORDERED: Insulin GLARGINE(*) 1 UNITS UNIT SUBCUT ONE (12:00)
[2017-04-18] MEDS: Heparin VIAL(*) 5000 UNITS/ML VIAL (FIVE THOUSAND) SUBCUT SCH ×2 (15:42→22:20)
--- NOTE | 2017-04-18 19:03 | PN ---
Progress Note - Progress Note Date of Service: 04/18/17 - Pulm f/u note Note: Pt seen and examined at bedside before and after bronchoscopy. Pt continues to cough without much phleghm. Pt had epistaxis last night. Still continues to require O2. s on heparin drip. Febrile this am. Is in normal sinus rhythm Active Medications Generic Name Dose Route Start Last Admin Trade Name Freq PRN Reason Stop Dose Admin Acetaminophen 650 mg 04/16/17 20:04 04/17/17 17:08 Tylenol Tab* PO 650 mg Q4H PRN Administration FEVER/PAIN Albuterol 2.5 mg 04/16/17 18:13 Ventolin 2.5 Mg/3 Ml Neb.Toya* INH Q2H PRN SOB/WHEEZING Albuterol/Ipratropium 1 neb 04/16/17 19:00 04/18/17 14:57 Duoneb (Albuterol 2.5 Mg/Ipratropium 0.5 Mg) INH 1 neb [id number] AWAKE PAPI Administration Dextrose 12.5 gm 04/16/17 18:17 D50w Syringe 50 Ml* IV PUSH .FOR FS < 60 - SS PRN FS < 60 Guaifenesin 1,200 mg 04/16/17 21:00 04/18/17 10:34 Mucinex* PO 1,200 mg BID PAPI Administration Heparin Sodium (Porcine) 5,000 units 04/18/17 14:00 04/18/17 15:42 Heparin Vial(*) SUBCUT 5,000 units Q8HR PAPI Administration Piperacillin Sod/Tazobactam 100 mls @ 25 mls/hr 04/18/17 18:30 04/18/17 17:58 Sod 3.375 gm/ Sodium Chloride IVPB 25 mls/hr Q8H PAPI Administration Insulin Human Lispro 0 units 04/16/17 19:00 04/18/17 17:58 Humalog* SUBCUT 9 units AC PAPI Administration Protocol Pharmacy Consult 1 note 04/16/17 18:00 Zosyn Per Pharmacy* FOLLOW UP .ZOSYN PER PHARMACY PAPI Prednisone 20 mg 04/19/17 09:00 Deltasone Tab* PO DAILY PAPI Vital Signs Temp Pulse Resp BP Pulse Ox 99.3 F 109 19 172/88 97 04/18/17 16:00 04/18/17 18:01 04/18/17 18:01 04/18/17 18:01 04/18/17 18:01 O/E: Pt in resp distress, uncomfortable in bed HEENT: PERRLA, No JVD, epistaxis with dry blood in nares Resp:Diminished air entry b/l, poor air entry left side CVS: S1, S2+, tachycardic Abd: Obese, BS+ Ext: No edema Skin: No rash or bruises Neuro: No focal defecits Laboratory Results - last 24 hr 04/17/17 04/17/17 04/18/17 20:30 20:30 05:55 WBC RBC Hgb Hct MCV MCH MCHC RDW Plt Count MPV Neut % (Auto) Lymph % (Auto) [place] % (Auto) Eos % (Auto) Baso % (Auto) Absolute Neuts (auto) Absolute Lymphs (auto) Absolute Monos (auto) Absolute Eos (auto) Absolute Basos (auto) Absolute Nucleated RBC Nucleated RBC % APTT 48.2 H Sodium 136 Potassium 4.0 Chloride 107 Carbon Dioxide 22 Anion Gap 7 BUN 30 H Creatinine 1.04 H Est GFR ( Amer) 68.0 Est GFR (Non-Af Amer) 52.9 BUN/Creatinine Ratio 28.8 H Glucose 319 H POC Glucose (mg/dL) 231 H Calcium 9.1 04/18/17 04/18/17 04/18/17 05:55 05:55 12:44 WBC 16.9 H RBC 3.22 L Hgb 9.6 L Hct 29 L MCV 89 MCH 30 MCHC 34 RDW 13 Plt Count 281 MPV 9 Neut % (Auto) 79.7 Lymph % (Auto) 16.2 L [place] % (Auto) 3.6 Eos % (Auto) 0 Baso % (Auto) 0.5 Absolute Neuts (auto) 13.5 H Absolute Lymphs (auto) 2.7 Absolute Monos (auto) 0.6 Absolute Eos (auto) 0 Absolute Basos (auto) 0.1 Absolute Nucleated RBC 0 Nucleated RBC % 0 APTT 61.1 H Sodium Potassium Chloride Carbon Dioxide Anion Gap BUN Creatinine Est GFR ( Amer) Est GFR (Non-Af Amer) BUN/Creatinine Ratio Glucose POC Glucose (mg/dL) 228 H Calcium 04/18/17 17:45 WBC RBC Hgb Hct MCV MCH MCHC RDW Plt Count MPV Neut % (Auto) Lymph % (Auto) [place] % (Auto) Eos % (Auto) Baso % (Auto) Absolute Neuts (auto) Absolute Lymphs (auto) Absolute Monos (auto) Absolute Eos (auto) Absolute Basos (auto) Absolute Nucleated RBC Nucleated RBC % APTT Sodium Potassium Chloride Carbon Dioxide Anion Gap BUN Creatinine Est GFR ( Amer) Est GFR (Non-Af Amer) BUN/Creatinine Ratio Glucose POC Glucose (mg/dL) 273 H Calcium I/R: 67 y o f with remote h/o smoking a/w SOB, found to have Lt sided endobronchial lesion with associated post obstructive PNA on left side Bronchoscopy was performed at bedside in ICU this morning. Pt was noted to have endobronchial lesion blocking KATHERYN witut much vascularity measuring about 1 cm, well rounded- lung cancer versus carcinoid tumor No signficant secretions were noted BAL was obtained, cytology negative Only 3 passes with endobronchial biopsy could be performed as pt was having significant coughing and couldnot tolerate procedure further even after receiving 6mg versed and 75 of fentanyl. She also was unstable due to hypoxia. Heparin drip was stopped however she had epistaxis and given chance for further bleeding and concern with unstable airwayif further bleeding resulted from endobronchial lesion, no further biopsies were attempted. If surgical pathology is negative, given high concern for malignancy or carcinoid tumor and airway obstruction and need for XT, will schedule the pt for rpt bronchoscopy in OR under [place] Discussed with pt and her and they are in agreement c/w broad spectrum abx Pt on high flow O2
[2017-04-19] MEDS: Acetaminophen TAB* 325 MG PO PRN (01:42)
[2017-04-19] MEDS: ZOSYN 3.375 GM Q8H per EXTENDED INFUSION IVPB SCH ×6 (02:20→18:31)
--- NOTE | 2017-04-19 02:33 | PRO ---
BRONCHOSCOPY REPORT: DATE OF PROCEDURE: 04/18/17 PROCEDURE PERFORMED: Bronchoscopy with bronchoalveolar lavage and endobronchial biopsy from left upper lobe. PREPROCEDURAL DIAGNOSES: Left upper lobe endobronchial lesion, rule out malignancy. POSTPROCEDURAL DIAGNOSIS: Endobronchial lesion, left upper lobe. ANESTHESIA: Patient had procedure performed under conscious sedation, conscious sedation requirements were completed. She has received 6 mg of Versed and 75 mcg of fentanyl. DESCRIPTION OF PROCEDURE: Informed consent was obtained from the patient prior to the procedure after all the risks and benefits were thoroughly explained. Patient was admitted for evaluation of cough, shortness of breath, hypoxemia, was found to have left sided pneumonia and possible endobronchial lesion with post obstructive pneumonia. The patient was on 4 L O2 prior to the procedure and also needed increase in supplemental oxygen. Appropriate time-out was agreed on by attending staff prior to the procedure. Risk of intubation and bleeding was discussed with patient. Heparin was held prior to the procedure. Bronchoscope was inserted through left naris. Patient has been having epistaxis since last night. Airway was anesthetized with 1% lidocaine. The patient received Versed and fentanyl prior to the procedure to help with the coughing and for patient comfort. Bronchoscope was then inserted through left nares. Ambu bronchoscope was used initially. Bronchoscope was stationed at the level of vocal cords and 1% lidocaine was instilled. Patient achieved adequate anesthesia at that point and bronchoscope was then advanced into the trachea. 1% lidocaine was instilled also at the level of maira. Bronchoscope was then inserted into the right bronchial tree, which was inspected. No endobronchial lesions were noted. Bronchoscope was then advanced into the left bronchial tree. No lesions noted in the left main stem bronchus. Evidence of endobronchial lesion with near complete occlusion of left upper lobe bronchus, lesion is rounded, with a ball valve mechanism. Ambu bronchoscope was withdrawn and Olympus bronchoscope was then again inserted through the left naris and passed without much difficulty at this time. The patient had epistaxis during the procedure. Bronchoscope was then advanced into the left upper lobe and images were taken of the lesion. Forceps was inserted and endobronchial biopsy was performed with 3 passes. Three biopsies were performed and were placed in formalin. BAL was also obtained from the left upper lobe. Bronchoscope was then withdrawn. Patient tolerated the procedure well. Epistaxis resolved. Oxygenation improved to 97% post procedure. The patient was transitioned into high flow. Specimen was sent to lab for further identification. [id number]/[facility] #: [id number] BRAULIO
[2017-04-19] MEDS: Albuterol/Ipratropium NEB.SOL* Albuterol 2.5 MG/Ipratropium 0.5 MG 3 ML INH SCH ×6 (03:52→23:58)
[2017-04-19] MEDS: Heparin VIAL(*) 5000 UNITS/ML VIAL (FIVE THOUSAND) SUBCUT SCH ×3 (06:13→22:33)
[2017-04-19 06:36] LABS: Add Diff/Slide Review? Slide Review Added; Comments Flag Yes; Hematocrit 30 % (35-47); Hemoglobin 9.9 g/dl (12.0-16.0); Mean Corpuscular HGB Conc 33 g/dl (31-36); Mean Corpuscular Hemoglobin 30 pg (27-31); Mean Corpuscular Volume 90 fL (80-97); Mean Platelet Volume 8 um3 (7.4-10.4); Red Blood Count 3.31 10^6/ul (4.0-5.4); Red Cell Distribution Width 13 % (10.5-15); White Blood Count 16.7 10^3/ul (3.5-10.8)
[2017-04-19 06:48] LABS: BUN/Creatinine Ratio 27.5 (8-20); Calcium 9.6 mg/dL (8.6-10.3); EGFR African American 69.5 (>60); EGFR Non-African American 54.1 (>60); Phosphorus 1.4 mg/dL (2.5-5.0); Potassium 3.5 mmol/L (3.5-5.0)
[2017-04-19] MEDS: predniSONE TAB* 20 MG PO SCH (09:53)
[2017-04-19] MEDS: guaiFENesin ER TAB 600 MG PO SCH ×2 (09:53→21:25)
[2017-04-19] MEDS: Insulin LISPRO* 1 UNITS UNIT SUBCUT SCH ×3 (09:54→17:53)
--- NOTE | 2017-04-19 10:28 | PN ---
Progress Note - Progress Note Date of Service: 04/19/17 Note: CRITICAL CARE MEDICINE Date: 04/19/17 Time: 930 SUBJECTIVE: Patient seen and examined. PHYSICAL EXAM: Vital Signs: Reviewed. Hr 110s still. RR a touch better. Coming off HFO2. Neurologic: communicating, holds capacity HEENT: pupils equal. Sclera anicteric. Trachea midline. poor dentition Cardiovascular: tachy, S1 S2 distant Respiratory: dec bs on left Abdomen: Soft, obese, nt. Extremities: Warm. LABS: Reviewed. BAL neg and bx pending IMAGING: Reviewed. MEDICATIONS: Reviewed. 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 Cardiovascular: Perfusing. vol status ok. Respiratory: attempting flutter valve. come off HFO2 but will still remain with O2 dependency. try metaneb today. oob. Gastrointestinal: po diet. Renal/Metabolic: stable. maintain po. Infectious Disease: on zosyn for 7 day course anticipated for cx neg pna. Hematology: ask onc to eval. if off Hfo2 and stable can obtain panct with contrast Endocrine: prednisone at 20. lantus today at lower dose with lower steroids. ssi. Musculoskeletal: oob. ambulate. Psych/Social: pt expressed understanding. Supportive and preventative care as ordered. SUP: po VTE prophylaxis: heparin subq Disposition: ICU level 2 Code Status: Full Critical Care Time: 25min Cookie Hernandez DO
--- NOTE | 2017-04-19 10:38 | CONSULT ---
Consultation - Reason for Consultation Reason for Consultation: likely cancer Ordering Provider: Mirza Hernandez Chief Complaint: shortness of breath History of Present Illness: 67 yo F w PMHx of HTN, DMII (with peripheral neuropathy), and hyperlipidemia with newly found endobronchial lesion suspicious for lung cancer. Anna Marie reports onset of SOB ~1 month ago, which she first noticed at her son's wedding. She then developed anorexia and intermittent nausea, with one day last week of ronit vomiting. 4 days prior to admission she developed cough and worsening SOB. On the day of admission she developed ronit weakness and felt like she would pass out. In the ER she was in afib w RVR and hypoxic. CT C/A/ P without contrast, which I have personally reviewed, showed yesterday which collapse of the KATHERYN and a clear endobronchial lesion. There were top normal precarinal nodes. No other clear metastatic disease. She underwent bronchoscopy with Dr. Kenyon yesterday which revealed a large endobronchial lesion obstructing via a ball-valve mechanism. BAL was negative but biopsy path is pending. She does report increased dizziness and right eye blurriness over the last week as well as an increase in her baseline headaches. She has had a 40 lb weight loss per her report over an unclear period of time. She has a very remote history of smoking (only 1 pack) and is up to date by her report on her colonoscopy and mammogram. Allergies/Medications Medication: Current Medications Acetaminophen (Tylenol Tab*) 650 mg PO Q4H PRN PRN Reason: FEVER/PAIN Last Admin: 04/19/17 01:42 Dose: 650 mg Albuterol (Ventolin 2.5 Mg/3 Ml Neb.Toya*) 2.5 mg INH Q2H PRN PRN Reason: SOB/WHEEZING Albuterol/Ipratropium (Duoneb (Albuterol 2.5 Mg/Ipratropium 0.5 Mg)) 1 neb INH [id number] AWAKE [facility] Last Admin: 04/19/17 03:52 Dose: Not Given Dextrose (D50w Syringe 50 Ml*) 12.5 gm IV PUSH .FOR FS < 60 - SS PRN PRN Reason: FS < 60 Guaifenesin (Mucinex*) 1,200 mg PO BID [facility] Last Admin: 04/19/17 09:53 Dose: 1,200 mg Heparin Sodium (Porcine) (Heparin Vial(*)) 5,000 units SUBCUT Q8HR [facility] Last Admin: 04/19/17 06:13 Dose: 5,000 units Piperacillin Sod/Tazobactam (Sod 3.375 gm/ Sodium Chloride) 100 mls @ 25 mls/ hr IVPB Q8H [facility] Last Admin: 04/19/17 02:20 Dose: 25 mls/hr Insulin Glargine (Lantus(*)) 10 units SUBCUT ONCE ONE Stop: 04/19/17 12:01 Insulin Human Lispro (Humalog*) 0 units SUBCUT AC [facility] PRN Reason: Protocol Last Admin: 04/19/17 09:54 Dose: Not Given Pharmacy Consult (Zosyn Per Pharmacy*) 1 note FOLLOW UP .ZOSYN PER PHARMACY [facility] Prednisone (Deltasone Tab*) 20 mg PO DAILY [facility] Last Admin: 04/19/17 09:53 Dose: 20 mg Allergies/Adverse Reactions: Allergies Allergy/AdvReac Type Severity Reaction Status Date / Time Adhesive Tape AdvReac Intermediate Rash Verified 06/11/16 17:56 ENVIRONMENTAL/SEASONAL Allergy ASTHMA Uncoded 06/11/16 17:56 FLAREUPS History - Past Medical History Other History: DM II. peripheral neuropathy. asthma. GERD. hyperlipidemia. HTN. Left hip ORIF - Family History Other Family History: full sister breast cancer. 1/2 sister maternal breast cancer. 3 maternal aunts "cancer" one breast - Social History Hx Alcohol Use: No Hx Tobacco Use: Yes - 1 pack smoking history Review of Systems - Review of Systems General Comments: extensive ROS as per HPI Physical Exam - Physical Exam Physical Examination: Vital Signs Temp Pulse Resp BP Pulse Ox 98.9 F 102 20 161/74 97 04/19/17 07:19 04/19/17 10:48 04/19/17 10:48 04/19/17 10:01 04/19/17 10:48 Hirsutism Left eye deviation very poor dentition dec bs entire left lung field regular soft nt +bs, obese trace LE edema A+O x 3, nonfocal neuro exam Results - Lab Results Lab Results: 04/16/17 04/16/17 04/16/17 20:40 20:40 21:00 WBC RBC Hgb Hct MCV MCH MCHC RDW Plt Count MPV Neut % (Auto) Lymph % (Auto) [place] % (Auto) Eos % (Auto) Baso % (Auto) Absolute Neuts (auto) Absolute Lymphs (auto) Absolute Monos (auto) Absolute Eos (auto) Absolute Basos (auto) Absolute Nucleated RBC Nucleated RBC % APTT Sodium Potassium Chloride Carbon Dioxide Anion Gap BUN Creatinine Est GFR ( Amer) Est GFR (Non-Af Amer) BUN/Creatinine Ratio Glucose POC Glucose (mg/dL) 271 H Lactic Acid 1.4 Calcium Phosphorus Magnesium Troponin I 0.06 H* Urine Color Urine Appearance Urine pH Ur Specific [place] Urine Protein Urine Ketones Urine Blood Urine Nitrate Urine Bilirubin Urine Urobilinogen Ur Leukocyte Esterase Urine WBC (Auto) Urine RBC (Auto) Ur Squamous Epith Cells Uric Acid Crystals Urine Bacteria Ur Random Creatinine Ur Random Sodium Urine Glucose 04/16/17 04/16/17 04/17/17 22:35 22:35 00:05 WBC RBC Hgb Hct MCV MCH MCHC RDW Plt Count MPV Neut % (Auto) Lymph % (Auto) [place] % (Auto) Eos % (Auto) Baso % (Auto) Absolute Neuts (auto) Absolute Lymphs (auto) Absolute Monos (auto) Absolute Eos (auto) Absolute Basos (auto) Absolute Nucleated RBC Nucleated RBC % APTT Sodium Potassium Chloride Carbon Dioxide Anion Gap BUN Creatinine Est GFR ( Amer) Est GFR (Non-Af Amer) BUN/Creatinine Ratio Glucose POC Glucose (mg/dL) Lactic Acid Calcium Phosphorus Magnesium Troponin I 0.04 H* Urine Color Yellow Urine Appearance Cloudy Urine pH 5.0 Ur Specific [place] 1.016 Urine Protein 1+(30 mg/dl) H Urine Ketones Negative Urine Blood Negative Urine Nitrate Negative Urine Bilirubin Negative Urine Urobilinogen Positive H Ur Leukocyte Esterase Negative Urine WBC (Auto) 1+(6-10/hpf) H Urine RBC (Auto) 1+(3-5/hpf) H Ur Squamous Epith Cells Present H Uric Acid Crystals Present H Urine Bacteria Absent Ur Random Creatinine 107.52 Ur Random Sodium 20 Urine Glucose 1+(50 mg/dl) H 04/17/17 04/17/17 04/17/17 02:45 05:30 05:30 WBC 13.3 H RBC 3.49 L Hgb 10.4 L Hct 31 L MCV 88 MCH 30 MCHC 34 RDW 13 Plt Count 260 MPV 9 Neut % (Auto) 79.9 Lymph % (Auto) 17.1 L [place] % (Auto) 2.6 Eos % (Auto) 0 Baso % (Auto) 0.4 Absolute Neuts (auto) 10.6 H Absolute Lymphs (auto) 2.3 Absolute Monos (auto) 0.3 Absolute Eos (auto) 0 Absolute Basos (auto) 0.1 Absolute Nucleated RBC 0.01 Nucleated RBC % 0 APTT 33.3 Sodium 132 L Potassium 4.1 Chloride 103 Carbon Dioxide 24 Anion Gap 5 BUN 37 H Creatinine 1.24 H Est GFR ( Amer) 55.5 Est GFR (Non-Af Amer) 43.1 BUN/Creatinine Ratio 29.8 H Glucose 322 H POC Glucose (mg/dL) Lactic Acid Calcium 9.0 Phosphorus Magnesium 2.1 Troponin I Urine Color Urine Appearance Urine pH Ur Specific [place] Urine Protein Urine Ketones Urine Blood Urine Nitrate Urine Bilirubin Urine Urobilinogen Ur Leukocyte Esterase Urine WBC (Auto) Urine RBC (Auto) Ur Squamous Epith Cells Uric Acid Crystals Urine Bacteria Ur Random Creatinine Ur Random Sodium Urine Glucose 04/17/17 04/17/17 04/17/17 07:43 10:47 11:50 WBC RBC Hgb Hct MCV MCH MCHC RDW Plt Count MPV Neut % (Auto) Lymph % (Auto) [place] % (Auto) Eos % (Auto) Baso % (Auto) Absolute Neuts (auto) Absolute Lymphs (auto) Absolute Monos (auto) Absolute Eos (auto) Absolute Basos (auto) Absolute Nucleated RBC Nucleated RBC % APTT 40.3 H Sodium Potassium Chloride Carbon Dioxide Anion Gap BUN Creatinine Est GFR ( Amer) Est GFR (Non-Af Amer) BUN/Creatinine Ratio Glucose POC Glucose (mg/dL) 305 H 389 H Lactic Acid Calcium Phosphorus Magnesium Troponin I Urine Color Urine Appearance Urine pH Ur Specific [place] Urine Protein Urine Ketones Urine Blood Urine Nitrate Urine Bilirubin Urine Urobilinogen Ur Leukocyte Esterase Urine WBC (Auto) Urine RBC (Auto) Ur Squamous Epith Cells Uric Acid Crystals Urine Bacteria Ur Random Creatinine Ur Random Sodium Urine Glucose 04/17/17 04/17/17 04/17/17 17:08 20:30 20:30 WBC RBC Hgb Hct MCV MCH MCHC RDW Plt Count MPV Neut % (Auto) Lymph % (Auto) [place] % (Auto) Eos % (Auto) Baso % (Auto) Absolute Neuts (auto) Absolute Lymphs (auto) Absolute Monos (auto) Absolute Eos (auto) Absolute Basos (auto) Absolute Nucleated RBC Nucleated RBC % APTT 48.2 H Sodium Potassium Chloride Carbon Dioxide Anion Gap BUN Creatinine Est GFR ( Amer) Est GFR (Non-Af Amer) BUN/Creatinine Ratio Glucose POC Glucose (mg/dL) 347 H 231 H Lactic Acid Calcium Phosphorus Magnesium Troponin I Urine Color Urine Appearance Urine pH Ur Specific [place] Urine Protein Urine Ketones Urine Blood Urine Nitrate Urine Bilirubin Urine Urobilinogen Ur Leukocyte Esterase Urine WBC (Auto) Urine RBC (Auto) Ur Squamous Epith Cells Uric Acid Crystals Urine Bacteria Ur Random Creatinine Ur Random Sodium Urine Glucose 04/18/17 04/18/17 04/18/17 05:55 05:55 05:55 WBC 16.9 H RBC 3.22 L Hgb 9.6 L Hct 29 L MCV 89 MCH 30 MCHC 34 RDW 13 Plt Count 281 MPV 9 Neut % (Auto) 79.7 Lymph % (Auto) 16.2 L [place] % (Auto) 3.6 Eos % (Auto) 0 Baso % (Auto) 0.5 Absolute Neuts (auto) 13.5 H Absolute Lymphs (auto) 2.7 Absolute Monos (auto) 0.6 Absolute Eos (auto) 0 Absolute Basos (auto) 0.1 Absolute Nucleated RBC 0 Nucleated RBC % 0 APTT 61.1 H Sodium 136 Potassium 4.0 Chloride 107 Carbon Dioxide 22 Anion Gap 7 BUN 30 H Creatinine 1.04 H Est GFR ( Amer) 68.0 Est GFR (Non-Af Amer) 52.9 BUN/Creatinine Ratio 28.8 H Glucose 319 H POC Glucose (mg/dL) Lactic Acid Calcium 9.1 Phosphorus Magnesium Troponin I Urine Color Urine Appearance Urine pH Ur Specific [place] Urine Protein Urine Ketones Urine Blood Urine Nitrate Urine Bilirubin Urine Urobilinogen Ur Leukocyte Esterase Urine WBC (Auto) Urine RBC (Auto) Ur Squamous Epith Cells Uric Acid Crystals Urine Bacteria Ur Random Creatinine Ur Random Sodium Urine Glucose 04/18/17 04/18/17 04/18/17 12:44 17:45 20:14 WBC RBC Hgb Hct MCV MCH MCHC RDW Plt Count MPV Neut % (Auto) Lymph % (Auto) [place] % (Auto) Eos % (Auto) Baso % (Auto) Absolute Neuts (auto) Absolute Lymphs (auto) Absolute Monos (auto) Absolute Eos (auto) Absolute Basos (auto) Absolute Nucleated RBC Nucleated RBC % APTT Sodium Potassium Chloride Carbon Dioxide Anion Gap BUN Creatinine Est GFR ( Amer) Est GFR (Non-Af Amer) BUN/Creatinine Ratio Glucose POC Glucose (mg/dL) 228 H 273 H 305 H Lactic Acid Calcium Phosphorus Magnesium Troponin I Urine Color Urine Appearance Urine pH Ur Specific [place] Urine Protein Urine Ketones Urine Blood Urine Nitrate Urine Bilirubin Urine Urobilinogen Ur Leukocyte Esterase Urine WBC (Auto) Urine RBC (Auto) Ur Squamous Epith Cells Uric Acid Crystals Urine Bacteria Ur Random Creatinine Ur Random Sodium Urine Glucose 04/19/17 04/19/17 04/19/17 06:21 06:21 08:37 WBC 16.7 H RBC 3.31 L Hgb 9.9 L Hct 30 L MCV 90 MCH 30 MCHC 33 RDW 13 Plt Count 327 MPV 8 Neut % (Auto) 73.3 Lymph % (Auto) 20.7 L [place] % (Auto) 5.7 Eos % (Auto) 0 Baso % (Auto) 0.3 Absolute Neuts (auto) 12.2 H Absolute Lymphs (auto) 3.5 Absolute Monos (auto) 0.9 H Absolute Eos (auto) 0 Absolute Basos (auto) 0 Absolute Nucleated RBC 0.02 Nucleated RBC % 0.1 APTT Sodium 139 Potassium 3.5 Chloride 108 Carbon Dioxide 25 Anion Gap 6 BUN 28 H Creatinine 1.02 H Est GFR ( Amer) 69.5 Est GFR (Non-Af Amer) 54.1 BUN/Creatinine Ratio 27.5 H Glucose 156 H POC Glucose (mg/dL) 120 H Lactic Acid Calcium 9.6 Phosphorus 1.4 L Magnesium 2.0 Troponin I Urine Color Urine Appearance Urine pH Ur Specific [place] Urine Protein Urine Ketones Urine Blood Urine Nitrate Urine Bilirubin Urine Urobilinogen Ur Leukocyte Esterase Urine WBC (Auto) Urine RBC (Auto) Ur Squamous Epith Cells Uric Acid Crystals Urine Bacteria Ur Random Creatinine Ur Random Sodium Urine Glucose Assessment and Plan Impression: 67 yo F w minimal tobacco use history now with a clear endobronchial lesion suspicious for carcinoma. We discussed this at length. She will need a full staging evaluation with contrast when able. I would like to get a brain MRI with contrast fist however given her dizziness and vision changes. This should be done while inpatient. Her other staging can be done outpatient if need be. In terms of treatment, it will clearly depend on pathology and staging, but may very well include palliative radiation therapy. I will discuss with Dr. Kenyon if this lesion appears amenable to stenting, and if so she may benefit from transfer to a specialty center. Thank you for this consultation and we will follow closely with you.
[2017-04-19] MEDS ORDERED: Insulin GLARGINE(*) 1 UNITS UNIT SUBCUT ONE (12:00)
[2017-04-19] MEDS ORDERED: Saline NASAL SPRAY 0.65%* BTL BOTH NARES PRN (12:05)
[2017-04-19] MEDS ORDERED: Gadoteridol* (CONTRAST) 279.3 MG/ML 10 ML IV ONE (15:22)
[2017-04-19] MEDS ORDERED: Perflutren Lipid Microsphere* 3 ML VIAL ONE (16:33)
--- NOTE | 2017-04-19 17:00 | RAD ---
Indication: Dizziness, headache, blurred vision. Oncology History. Comparison: No relevant prior exams available on the [facility] [place] PACS for comparison. Technique: Duettoa 1.5 Dolores [id number] with GEM suite. MRI brain without contrast. Report: Diffusion series is negative for acute or subacute ischemia. Susceptibility series is negative for stigmata of hemosiderin deposition to indicate previous hemorrhage. Unremarkable cerebral sulci, ventricles, and basal cisterns. Normal patterns of signal intensity throughout the cerebrum and posterior fossa. No intra or extra-axial lesions, fluid collections, or mass effect. Unremarkable orbital contents. Preserved major intracranial flow voids. Clear paranasal sinuses and mastoid air spaces. Unremarkable calvarium and skull base as well as the scalp. IMPRESSION: Negative MRI of the brain for age.
--- NOTE | 2017-04-19 17:19 | ECHO ---
Patient: LOUIE LEY [facility] Rec#: [id number] : 1950 Date: 04/19/2017 Age: 67y Height: 167.64 cm / 66.0 in Weight: 109.77 kg / 241.9 lbs Sex: F BSA: 2.17 Room#: ICU 2 Admit Date#: 04/16/2017 Type: Inpatient Referring: Mirza Hernandez Reading: Yenny Pierre MD Photographic Aide: Yaneth Acosta,ANDREWCS,RDMS CC: Gege Espino MD Transthoracic Echocardiogram Indication: Sepsis, Abnormal EKG BP: 159/83 HR: 89 Rhythm: NSR Findings History: DM, HTN, HLD, asthma, former smoker Technical Comments: The study is technically limited due to poor acoustic windows. Left Ventricle: The left ventricular chamber size is normal. Mild to moderate concentric left ventricular hypertrophy is observed. The left ventricle appears hyperdynamic. The estimated ejection fraction is greater than 65%. There is an E to A reversal in the mitral valve flow pattern suggestive of diastolic dysfunction. Left Atrium: The left atrium is mildly dilated. Right Ventricle: The right ventricular chamber size and systolic function are within normal limits. The right ventricle wall thickness is mildly increased. Right Atrium: The right atrial cavity size is normal. The interatrial septum appears lipomatous. Aortic Valve: The aortic valve is trileaflet. The aortic valve leaflets are mildly thickened. There is no evidence of aortic regurgitation. There is no evidence of aortic stenosis. Mitral Valve: The mitral valve leaflets are mildly thickened. There is no evidence of mitral regurgitation. There is no evidence of mitral stenosis. Tricuspid Valve: The tricuspid valve leaflets are normal. There is trace tricuspid regurgitation. The right ventricular systolic pressure is estimated at 34 mmHg. There is evidence of borderline pulmonary hypertension. Pulmonic Valve: The pulmonic valve appears normal. There is a trace pulmonic regurgitation. Pericardium: There is no significant pericardial effusion. A pericardial fat pad is visualized. Aorta: The aortic root appears normal. There is no dilatation of the aortic arch. Pulmonary Artery: The main pulmonary artery appears normal. Venous: The inferior vena cava appears normal in size. There is an approximate 50% respiratory change in the inferior vena cava dimension. Contrast: Definity was used to optimize study. A total of 2 ml was used Conclusions Mild to moderate concentric left ventricular hypertrophy is observed. The left ventricle appears hyperdynamic. The estimated ejection fraction is greater than 65%. There is an E to A reversal in the mitral valve flow pattern suggestive of diastolic dysfunction. The right ventricle wall thickness is mildly increased, systolic function are within normal limits. The aortic valve leaflets are mildly thickened. There is trace tricuspid regurgitation. The right ventricular systolic pressure is estimated at 34 mmHg. No prior echo to compare. Measurements Name Value Normal Range RVIDd (AP) 2D 3 cm (0.9 - 2.6) RVDdMajor (2D) 3.1 cm (2.2 - 4.4) RAd ISD 4CH 4.8 cm (3.4 - 4.9) RA (A4C)W 3.1 cm (2.9 - 4.6) IVSd (2D) 1.3 cm (0.6 - 1) LVPWd (2D) 1.4 cm (0.6 - 1) LVIDd (2D) 4 cm (3.6 - 5.4) LVIDs (2D) 2.5 cm - LV FS (2D) 37 % (25 - 45) Aortic Annulus 2 cm (1.4 - 2.6) Ao root diameter (2D) 3 cm (2.1 - 3.5) Ascending Ao 2.9 cm (2.1 - 3.4) Aortic arch 3.4 cm (1.8 - 3.4) LA dimension (AP) 2D 3.7 cm (2.3 - 3.8) LAd ISD 4CH 6 cm (2.9 - 5.3) LA ISD 4CH W 4.7 cm (2.5 - 4.5) Name Value Normal Range LA ESV SP 4CH (A/L) 69.63 ml - LA ESV SP 2CH (A/L) 52.06 ml - LA ESV BP (A/L) 60.23 ml - LA ESV BP (A/L) index 28 ml/m2 - LA ESV SP 4CH (MOD) 62.99 ml - LA ESV SP 2CH (MOD) 49.93 ml - Name Value Normal Range MV E-wave Vmax 0.9 m/sec - MV deceleration time 110 msec - MV A-wave Vmax 1.3 m/sec - MV E:A ratio 0.7 ratio - Name Value Normal Range AV Vmax 1.8 m/sec - AV VTI 32.5 cm - AV peak gradient 13 mmHg - AV mean gradient 3.8 mmHg - LVOT Vmax 1.4 m/sec - LVOT VTI 27 cm - LVOT peak gradient 8 mmHg - LVOT mean gradient 4.9 mmHg - ELAINA Vmax 0.7 m/sec - Name Value Normal Range MV Vmax 1.3 m/sec - MV VTI 23 cm - MV peak gradient 7 mmHg - MV mean gradient 3 mmHg - MV PHT 39 msec - MVA (PHT) 5.6 cm2 - Name Value Normal Range TR Vmax 2.8 m/sec - TR peak gradient 31 mmHg - RAP 3 mmHg - RVSP 34 mmHg - IVC diameter 1.9 cm - Name Value Normal Range PV Vmax 1.2 m/sec - PV peak gradient 6 mmHg -
--- NOTE | 2017-04-19 19:11 | PN ---
Progress Note - Progress Note Date of Service: 04/19/17 - Pulm f/u note Note: Pt seen and examined at bedside. Pt reports improvement in her breathing. Still has intermittent episodes of hemoptysis. Active Medications Generic Name Dose Route Start Last Admin Trade Name Freq PRN Reason Stop Dose Admin Acetaminophen 650 mg 04/16/17 20:04 04/19/17 01:42 Tylenol Tab* PO 650 mg Q4H PRN Administration FEVER/PAIN Albuterol 2.5 mg 04/16/17 18:13 Ventolin 2.5 Mg/3 Ml Neb.Toya* INH Q2H PRN SOB/WHEEZING Albuterol/Ipratropium 1 neb 04/16/17 19:00 04/19/17 16:50 Duoneb (Albuterol 2.5 Mg/Ipratropium 0.5 Mg) INH Not Given [id number] AWAKE PAPI Dextrose 12.5 gm 04/16/17 18:17 D50w Syringe 50 Ml* IV PUSH .FOR FS < 60 - SS PRN FS < 60 Guaifenesin 1,200 mg 04/16/17 21:00 04/19/17 09:53 Mucinex* PO 1,200 mg BID PAPI Administration Heparin Sodium (Porcine) 5,000 units 04/18/17 14:00 04/19/17 16:24 Heparin Vial(*) SUBCUT 5,000 units Q8HR PAPI Administration Piperacillin Sod/Tazobactam 100 mls @ 25 mls/hr 04/18/17 18:30 04/19/17 18:31 Sod 3.375 gm/ Sodium Chloride IVPB 25 mls/hr Q8H PAPI Administration Insulin Human Lispro 0 units 04/16/17 19:00 04/19/17 17:53 Humalog* SUBCUT 6 units AC PAPI Administration Protocol Pharmacy Consult 1 note 04/16/17 18:00 Zosyn Per Pharmacy* FOLLOW UP .ZOSYN PER PHARMACY [facility] Prednisone 20 mg 04/19/17 09:00 04/19/17 09:53 Deltasone Tab* PO 20 mg DAILY PAPI Administration Sodium Chloride 1 spray 04/19/17 12:05 Sodium Chloride 0.65% Nasal [place]* BOTH NARES Q4H PRN DISCOMFORT Vital Signs Temp Pulse Resp BP Pulse Ox 98.5 F 99 22 162/98 98 04/19/17 11:58 04/19/17 18:01 04/19/17 18:01 04/19/17 18:01 04/19/17 18:01 O/E: Pt in no distress, aler, awake, orientedx3 HEENT: PERRLA, No JVD Resp:Diminished air entry b/l, poor air entry left side CVS: S1, S2+, tachycardic Abd: Obese, BS+ Ext: No edema Skin: No rash or bruises Neuro: No focal defecits Laboratory Results - last 24 hr 04/18/17 04/19/17 04/19/17 20:14 06:21 06:21 WBC 16.7 H RBC 3.31 L Hgb 9.9 L Hct 30 L MCV 90 MCH 30 MCHC 33 RDW 13 Plt Count 327 MPV 8 Neut % (Auto) 73.3 Lymph % (Auto) 20.7 L Schley % (Auto) 5.7 Eos % (Auto) 0 Baso % (Auto) 0.3 Absolute Neuts (auto) 12.2 H Absolute Lymphs (auto) 3.5 Absolute Monos (auto) 0.9 H Absolute Eos (auto) 0 Absolute Basos (auto) 0 Absolute Nucleated RBC 0.02 Nucleated RBC % 0.1 Sodium 139 Potassium 3.5 Chloride 108 Carbon Dioxide 25 Anion Gap 6 BUN 28 H Creatinine 1.02 H Est GFR ( Amer) 69.5 Est GFR (Non-Af Amer) 54.1 BUN/Creatinine Ratio 27.5 H Glucose 156 H POC Glucose (mg/dL) 305 H Calcium 9.6 Phosphorus 1.4 L Magnesium 2.0 04/19/17 04/19/17 04/19/17 08:37 11:49 17:25 WBC RBC Hgb Hct MCV MCH MCHC RDW Plt Count MPV Neut % (Auto) Lymph % (Auto) [place] % (Auto) Eos % (Auto) Baso % (Auto) Absolute Neuts (auto) Absolute Lymphs (auto) Absolute Monos (auto) Absolute Eos (auto) Absolute Basos (auto) Absolute Nucleated RBC Nucleated RBC % Sodium Potassium Chloride Carbon Dioxide Anion Gap BUN Creatinine Est GFR ( Amer) Est GFR (Non-Af Amer) BUN/Creatinine Ratio Glucose POC Glucose (mg/dL) 120 H 149 H 204 H Calcium Phosphorus Magnesium I/R: 67 y o f with remote h/o smoking a/w SOB, found to have Lt sided endobronchial lesion with associated post obstructive PNA on left side Bronchoscopy - endobronchial lesion blocking KATHERYN without much vascularity measuring about 1 cm, well rounded- lung cancer versus carcinoid tumor No signficant secretions were noted BAL was obtained, cytology negative, surgical bx negative Biopsy is non-diagnostic due to inability to obtain enough tissue due to hypoxia and bleeding Will schedule the pt for rpt bronchoscopy/EBUS in OR under [facility] Discussed with pt and she is in agreement c/w broad spectrum abx Pt on O2, titrate as tolerated Pt not on heparin anymore and is in sinus rhythm
[2017-04-19] MEDS ORDERED: Metoprolol Tartrate IV* 1 MG/ML 5 ML VIAL IV PRN (21:13)
[2017-04-19] MEDS ORDERED: Metoprolol Tartrate IV* 1 MG/ML 5 ML VIAL ONE (21:16)
[2017-04-19] MEDS ORDERED: Metoprolol Tartrate IV* 1 MG/ML 5 ML VIAL IV ONE (22:23)
[2017-04-19 23:30] LABS: Urine Bacteria Absent (Absent); Urine Bilirubin Negative (Negative); Urine Glucose 1+(50 mg/dL) (Negative); Urine Nitrite Negative (Negative)
[2017-04-20] MEDS: ZOSYN 3.375 GM Q8H per EXTENDED INFUSION IVPB SCH ×6 (02:39→18:57)
[2017-04-20] MEDS: Albuterol/Ipratropium NEB.SOL* Albuterol 2.5 MG/Ipratropium 0.5 MG 3 ML INH SCH ×6 (03:22→22:42)
[2017-04-20 05:12] LABS: Hematocrit 31 % (35-47); Hemoglobin 10.4 g/dl (12.0-16.0); Mean Corpuscular HGB Conc 33 g/dl (31-36); Mean Corpuscular Hemoglobin 30 pg (27-31); Mean Corpuscular Volume 89 fL (80-97); Mean Platelet Volume 8 um3 (7.4-10.4); Red Blood Count 3.52 10^6/ul (4.0-5.4); Red Cell Distribution Width 13 % (10.5-15); White Blood Count 16.4 10^3/ul (3.5-10.8)
[2017-04-20 05:26] LABS: BUN/Creatinine Ratio 20.5 (8-20); Calcium 9.6 mg/dL (8.6-10.3); EGFR African American 88.2 (>60); EGFR Non-African American 68.6 (>60); Magnesium 1.8 mg/dL (1.9-2.7); Phosphorus 2.4 mg/dL (2.5-5.0); Potassium 3.3 mmol/L (3.5-5.0)
[2017-04-20] MEDS: Heparin VIAL(*) 5000 UNITS/ML VIAL (FIVE THOUSAND) SUBCUT SCH ×3 (06:11→20:56)
[2017-04-20] MEDS: Insulin LISPRO* 1 UNITS UNIT SUBCUT SCH ×3 (07:42→18:18)
[2017-04-20] MEDS: predniSONE TAB* 20 MG PO SCH (08:08)
[2017-04-20] MEDS: guaiFENesin ER TAB 600 MG PO SCH ×2 (08:08→20:56)
[2017-04-20] MEDS ORDERED: LORazepam TAB(*) 1 MG ONE (08:38)
[2017-04-20] MEDS ORDERED: LORazepam TAB(*) 1 MG PO ONE (09:00)
--- NOTE | 2017-04-20 09:50 | RAD ---
HISTORY: Cancer, dizziness, headaches, blurred vision COMPARISONS: MRI dated April 19, 2017 TECHNIQUE: The following sequences were obtained of the head: Sagittal, coronal, and axial T1-weighted images after contrast enhancement with a gadolinium-based intravenous contrast agent FINDINGS: The study is read in conjunction with the MRI of April 19, 2017. There is no abnormal enhancement. IMPRESSION: NO ABNORMAL ENHANCEMENT.
[2017-04-20] MEDS ORDERED: Magnesium Sulfate 2 GM IV* 2 GM/50 ML BAG IVPB ONE (09:58)
[2017-04-20] MEDS ORDERED: NS 0.9% w/ 40 Meq KCL 1000 ML* 1,000 ML IV SCH (10:00)
[2017-04-20] MEDS ORDERED: Iodixanol* (CONTRAST) 320 MG/ML 100 ML SDV IV ONE (10:11)
--- NOTE | 2017-04-20 10:31 | PN ---
Progress Note - Progress Note Date of Service: 04/20/17 Note: CRITICAL CARE MEDICINE Date: 04/20/17 Time: 950 SUBJECTIVE: Patient seen and examined. c/o inc urination last pm and had fisher replaced. PHYSICAL EXAM: Vital Signs: Reviewed. Hr 110s still. RR better but up at times. 6L O2. Neurologic: communicating, holds capacity HEENT: pupils equal. Sclera anicteric. Trachea midline. poor dentition Cardiovascular: tachy, S1 S2 distant Respiratory: dec bs on left ; no wheeze Abdomen: Soft, obese, nt. Extremities: Warm. LABS: Reviewed. IMAGING: Reviewed. MEDICATIONS: Reviewed. ASSESSMENT: 67 F Post obstructive pna & atelectasis Severe sepsis sec to above - resolving Acute hypoxic resp failure KATHERYN endobronchial tumor - ?carcinoma PAF sec to sepsis Uncontrolled DM PLAN: Neurologic: stable. needed ativan for mri today, which looks benign to my eye. read pending. Cardiovascular: Perfusing. vol status ok but give IVF today as wanting to eval with contrast ct. Respiratory: off HFO2 and weaning. metaneb helping it seems and continue today. oob. flutter. adjunctives. plan for ct today and bronch tomorrow. CT may aid in bronch needs. Gastrointestinal: po diet. Renal/Metabolic: even better cr today. has fisher now which she is requesting again to keep. explained the dynamics with risks. agreed to maintain thru OR needs tomorrow now and then we would look to dc. Infectious Disease: day 10/09 zosyn Hematology: appreciate ONC eval and f/u. for bronch again tomorrow. Endocrine: prednisone at 20 and can dec this weekend. lantus held today given improving glu and npo needs for ct. continued ssi. Musculoskeletal: oob. ambulate. Psych/Social: pt expressed understanding. Supportive and preventative care as ordered. SUP: po VTE prophylaxis: heparin subq Disposition: ICU, level 3 Code Status: Full Critical Care Time: 25min Cookie Hernandez DO
[2017-04-20] MEDS: Metoprolol Tartrate TAB* 25 MG PO SCH ×2 (11:03→20:56)
[2017-04-20] MEDS: Potassium & Sodium Phos 250MG* = 1 PACKET PO SCH ×2 (11:06→20:56)
--- NOTE | 2017-04-20 14:00 | PN ---
Progress Note - Progress Note Date of Service: 04/20/17 - Pulm f/u note Note: Pt seen and examined at bedside. Reports that she had hard time breathing last night but feels better this am. Is trying to drink po contrast for scheduled CT abdomen. Had episode of tachycardia last night, BP was also elevated, received 2 doses of metoprolol Active Medications Generic Name Dose Route Start Last Admin Trade Name Freq PRN Reason Stop Dose Admin Acetaminophen 650 mg 04/16/17 20:04 04/19/17 01:42 Tylenol Tab* PO 650 mg Q4H PRN Administration FEVER/PAIN Albuterol 2.5 mg 04/16/17 18:13 Ventolin 2.5 Mg/3 Ml Neb.Toya* INH Q2H PRN SOB/WHEEZING Albuterol/Ipratropium 1 neb 04/16/17 19:00 04/20/17 08:37 Duoneb (Albuterol 2.5 Mg/Ipratropium 0.5 Mg) INH 1 neb [id number] AWAKE PAPI Administration Dextrose 12.5 gm 04/16/17 18:17 D50w Syringe 50 Ml* IV PUSH .FOR FS < 60 - SS PRN FS < 60 Guaifenesin 1,200 mg 04/16/17 21:00 04/20/17 08:08 Mucinex* PO 1,200 mg BID PAPI Administration Heparin Sodium (Porcine) 5,000 units 04/18/17 14:00 04/20/17 12:56 Heparin Vial(*) SUBCUT 5,000 units Q8HR PAPI Administration Piperacillin Sod/Tazobactam 100 mls @ 25 mls/hr 04/18/17 18:30 04/20/17 11:07 Sod 3.375 gm/ Sodium Chloride IVPB 25 mls/hr Q8H PAPI Administration Potassium Chloride/Sodium Chloride 1,000 mls @ 100 mls/hr 04/20/17 10:00 Ns 0.9% W/ 40 Meq Kcl 1000 Ml* IV 04/20/17 19:59 .ENTER RATE PAPI Insulin Human Lispro 0 units 04/16/17 19:00 04/20/17 11:22 Humalog* SUBCUT 9 units AC PAPI Administration Protocol Metoprolol Tartrate 5 mg 04/19/17 21:13 04/19/17 21:17 Lopressor Iv* IV 5 mg Q6H PRN Administration afib HR >120 Metoprolol Tartrate 25 mg 04/20/17 10:00 04/20/17 11:03 Lopressor Tab* PO 25 mg BID PAPI Administration Pharmacy Consult 1 note 04/16/17 18:00 Zosyn Per Pharmacy* FOLLOW UP .ZOSYN PER PHARMACY PAPI Potassium Phos/Sodium Phos 250 mg 04/20/17 10:00 04/20/17 11:06 Neutra Phos 250 Mg Jacobo* PO 04/21/17 21:01 250 mg BID PAPI Administration Prednisone 20 mg 04/19/17 09:00 04/20/17 08:08 Deltasone Tab* PO 20 mg DAILY PAPI Administration Sodium Chloride 1 spray 04/19/17 12:05 Sodium Chloride 0.65% Nasal [place]* BOTH NARES Q4H PRN DISCOMFORT Vital Signs Temp Pulse Resp BP Pulse Ox 99.3 F 89 25 166/90 95 04/20/17 11:41 04/20/17 13:00 04/20/17 13:00 04/20/17 08:31 04/20/17 13:00 O/E: Pt in no distress, alert, awake, orientedx3 HEENT: PERRLA, No JVD, facial hair present Resp:Diminished air entry b/l, poor air entry left side CVS: S1, S2+, tachycardic Abd: Obese, BS+ Ext: No edema Skin: No rash or bruises Neuro: No focal defects WBC 16.4 10^3/ul (3.5-10.8) H RBC 3.52 10^6/ul (4.0-5.4) L Hgb 10.4 g/dl (12.0-16.0) L Hct 31 % (35-47) L MCV 89 fL (80-97) MCH 30 pg (27-31) MCHC 33 g/dl (31-36) RDW 13 % (10.5-15) Plt Count 357 10^3/ul (150-450) MPV 8 um3 (7.4-10.4) Neut % (Auto) 73.3 % (38-83) Lymph % (Auto) 20.7 % (25-47) L [place] % (Auto) 5.7 % (1-9) Eos % (Auto) 0 % (0-6) Baso % (Auto) 0.3 % (0-2) Absolute Neuts (auto) 12.2 10^3/ul (1.5-7.7) H Absolute Lymphs (auto) 3.5 10^3/ul (1.0-4.8) Absolute Monos (auto) 0.9 10^3/ul (0-0.8) H Absolute Eos (auto) 0 10^3/ul (0-0.6) Absolute Basos (auto) 0 10^3/ul (0-0.2) Absolute Nucleated RBC 0.02 10^3/ul Nucleated RBC % 0.1 INR (Anticoag Therapy) 1.14 (0.89-1.11) H APTT 61.1 seconds (26.0-36.3) H D-Dimer, Quantitative 388 ng/mL (Less Than 230) H Sodium 141 mmol/L (133-145) Potassium 3.3 mmol/L (3.5-5.0) L Chloride 106 mmol/L (101-111) Carbon Dioxide 29 mmol/L (22-32) Anion Gap 6 mmol/L (2-11) BUN 17 mg/dL (6-24) Creatinine 0.83 mg/dL (0.51-0.95) Est GFR ( Amer) 88.2 (>60) Est GFR (Non-Af Amer) 68.6 (>60) BUN/Creatinine Ratio 20.5 (8-20) H Glucose 124 mg/dL (70-100) H POC Glucose (mg/dL) 262 mg/dL (70-100) H Hemoglobin A1c 6.0 % (4.0-5.6) H Lactic Acid 1.4 mmol/L (0.5-2.0) Calcium 9.6 mg/dL (8.6-10.3) Phosphorus 2.4 mg/dL (2.5-5.0) L Magnesium 1.8 mg/dL (1.9-2.7) L Total Bilirubin 0.80 mg/dL (0.2-1.0) AST 12 U/L (13-39) L ALT 12 U/L (7-52) Alkaline Phosphatase 70 U/L (34-104) Troponin I 0.04 ng/mL (<0.04) H* B-Natriuretic Peptide 194 pg/mL (-100) H Total Protein 7.1 g/dL (6.4-8.9) Albumin 3.5 g/dL (3.2-5.2) Globulin 3.6 g/dL (2-4) Albumin/Globulin Ratio 1.0 (1-3) Procalcitonin 1.9 ng/mL (<0.6) H TSH 1.68 mcIU/mL (0.34-5.60) Urine Color Straw Urine Appearance Clear Urine pH 6.0 (5-9) Ur Specific [place] 1.004 (1.010-1.030) L Urine Protein Negative (Negative) Urine Ketones Negative (Negative) Urine Blood 2+ (Negative) H Urine Nitrate Negative (Negative) Urine Bilirubin Negative (Negative) Urine Urobilinogen Negative (Negative) Ur Leukocyte Esterase Negative (Negative) Urine WBC (Auto) Trace(0-5/hpf) (Absent) Urine RBC (Auto) Trace(0-2/hpf) (Absent) Ur Squamous Epith Cells Present (Absent) H Uric Acid Crystals Present (Absent) H Urine Bacteria Absent (Absent) Ur Random Creatinine 107.52 mg/dL Ur Random Sodium 20 mmol/L Urine Glucose 1+(50 mg/dl) (Negative) H MRI brain: No abnormalities I/R: 67 y o f with remote h/o smoking a/w SOB, found to have Lt sided endobronchial lesion with associated post obstructive PNA on left side PNA- WBC count still remains elevated, is on broad spectrum abx Bronchoscopy - endobronchial lesion blocking KATHERYN without much vascularity measuring about 1 cm, well rounded- lung cancer versus carcinoid tumor No significant secretions were noted BAL was obtained, cytology negative, surgical bx negative Biopsy is non-diagnostic due to inability to obtain enough tissue due to hypoxia and bleeding Pt scheduled for rpt bronchoscopy/EBUS in OR under [facility] 04/20/17 NPO after midnight tonight Procedure was discussed in detail with pt, risks and benefits were discussed and she is in agreement c/w broad spectrum abx Pt on O2, FiO2 requirements coming down, titrate as tolerated Pt scheduled for abd CT today
[2017-04-20] MEDS ORDERED: Buffered Lidocaine 0.9% SYRIN* 5 ML/SYR SYRINGE INTRADERM ONE (17:18)
--- NOTE | 2017-04-20 18:22 | RAD ---
INDICATION: Severe pneumonia. COMPARISON: April 16, [address] TECHNIQUE: Multidetector CT images were obtained from the lung apices to the ischial tuberosities with 131 mL Visipaque 320 IV contrast. Oral contrast administered. CHEST REPORT: Persistent low density filling defect at the bifurcation of the LEFT mainstem bronchus. LEFT lung volume loss with leftward mediastinal shift. Partial atelectasis of the LEFT lung. Inflammatory infiltrate within the consolidated LEFT lung not excluded. Small dependent LEFT pleural effusion . Tiny calcified granuloma along the RIGHT minor fissure. Minimal linear atelectasis at the RIGHT lung base. Negative for RIGHT pleural effusion. Negative for pneumothorax. Enlarged LEFT thyroid lobe with macroscopic calcifications. Negative for thoracic lymphadenopathy. Mild cardiomegaly. Negative for pericardial effusion. Normal diameter thoracic aorta. Negative for aortic dissection. Negative for suspicious thoracic osseous lesions. Multilevel segmental ossification of the anterior longitudinal ligament of the thoracic spine consistent with Diffuse Idiopathic Skeletal Hyperostosis (DISH). CHEST IMPRESSION: 1. Persistent probable mucus plugging at the distal LEFT mainstem bronchus and branches airways. Decreased magnitude of alveolar consolidation at the LEFT lung with residual atelectasis and potential inflammatory infiltrate. Small dependent LEFT pleural effusion with interval enlargement. 2. Negative for thoracic lymphadenopathy. ABDOMEN PELVIS REPORT: Unremarkable liver, gallbladder, and pancreas. Mildly enlarged 15.5 cm cephalocaudal spleen without focal lesions. Negative for CT abnormality of the upper GI or small bowel. While the appendix is not discretely visualized, there is no inflammatory change in the right lower quadrant or region of the tip of the cecum to suggest presence of an acute inflammatory process. Unremarkable colon with enteric contrast extending to the splenic flexure. Mild distention of the rectum with formed stool. Negative for ascites, free air, hernias. Normal adrenal glands. Tiny renal cortical cysts. Focal renal cortical scarring at the lower pole of the RIGHT kidney. No suspicious focal renal lesions. Symmetric nephrograms and pyelograms. Nonobstructing bilateral nephrolithiasis based on correlation with the April 16, [address] Negative for hydronephrosis. Unremarkable nondilated ureters with the distal segments partially obscured due to artifact from the hip prostheses. Catheterized largely decompressed urinary bladder. Unremarkable uterus and adnexal regions. Negative for lymphadenopathy. Normal diameter abdominal aorta and iliac arteries. Physiologic distention of the IVC. Negative for suspicious osseous lesions. ABDOMEN PELVIS IMPRESSION: 1. Mild splenomegaly. 2. Negative for lymphadenopathy. 3. No evidence for visceral metastasis. 4. Nonobstructing bilateral nephrolithiasis based on correlation with the April 16, [address]
[2017-04-20] MEDS: amLODIPine TAB* 5 MG PO SCH (23:42)
[2017-04-21] MEDS: ZOSYN 3.375 GM Q8H per EXTENDED INFUSION IVPB SCH ×6 (02:32→18:14)
[2017-04-21] MEDS: Albuterol/Ipratropium NEB.SOL* Albuterol 2.5 MG/Ipratropium 0.5 MG 3 ML INH SCH ×4 (03:24→19:23)
[2017-04-21 06:27] LABS: Hematocrit 32 % (35-47); Hemoglobin 10.6 g/dl (12.0-16.0); Mean Corpuscular HGB Conc 34 g/dl (31-36); Mean Corpuscular Hemoglobin 30 pg (27-31); Mean Corpuscular Volume 89 fL (80-97); Mean Platelet Volume 8 um3 (7.4-10.4); Red Blood Count 3.57 10^6/ul (4.0-5.4); Red Cell Distribution Width 13 % (10.5-15); White Blood Count 13.5 10^3/ul (3.5-10.8)
[2017-04-21 06:47] LABS: BUN/Creatinine Ratio 15.1 (8-20); Calcium 9.3 mg/dL (8.6-10.3); EGFR African American 84.6 (>60); EGFR Non-African American 65.8 (>60); Potassium 3.5 mmol/L (3.5-5.0)
[2017-04-21] MEDS: Heparin VIAL(*) 5000 UNITS/ML VIAL (FIVE THOUSAND) SUBCUT SCH ×3 (07:20→22:14)
[2017-04-21] MEDS: Insulin LISPRO* 1 UNITS UNIT SUBCUT SCH ×3 (09:20→17:06)
[2017-04-21] MEDS: predniSONE TAB* 20 MG PO SCH (09:21)
[2017-04-21] MEDS: Metoprolol Tartrate TAB* 25 MG PO SCH (09:21)
[2017-04-21] MEDS: amLODIPine TAB* 5 MG PO SCH (09:21)
[2017-04-21] MEDS: Potassium & Sodium Phos 250MG* = 1 PACKET PO SCH ×2 (09:21→20:12)
[2017-04-21] MEDS: guaiFENesin ER TAB 600 MG PO SCH ×2 (09:21→20:12)
--- NOTE | 2017-04-21 09:35 | PN ---
Progress Note - Progress Note Date of Service: 04/21/17 Note: CRITICAL CARE MEDICINE Date: 04/21/17 Time: 855 SUBJECTIVE: Patient seen and examined. PHYSICAL EXAM: Vital Signs: Reviewed. Hr <100s. RR better. 4L O2. Neurologic: communicating, holds capacity HEENT: pupils equal. Sclera anicteric. Trachea midline. poor dentition Cardiovascular: reg S1 S2 distant Respiratory: dec bs on left; no wheeze Abdomen: Soft, obese, nt. Extremities: Warm. LABS: Reviewed. IMAGING: Reviewed. MEDICATIONS: Reviewed. ASSESSMENT: 67 F Post obstructive pna & atelectasis Severe sepsis sec to above - resolving Acute hypoxic resp failure KATHERYN endobronchial tumor - ?carcinoma PAF sec to sepsis Uncontrolled DM PLAN: Neurologic: stable. Cardiovascular: Perfusing. vol status ok. better with bb and can go up on dosing tonight. Respiratory: O2 support. for bronch today. ICU eval post as easy for her to decompensate. if she can do well without rescue needs then may be floor ready tomorrow. Gastrointestinal: npo. po diet post bronch. Renal/Metabolic: stable. look to dc fisher post OR needs today. Infectious Disease: day 6/ zosyn Hematology: ONC f/u. Endocrine: prednisone at 20. ssi. Musculoskeletal: oob. ambulate. Psych/Social: pt expressed understanding. Supportive and preventative care as ordered. SUP: po VTE prophylaxis: heparin subq Disposition: ICU, level 3 Code Status: Full Critical Care Time: 25min Cookie Hernandez DO
[2017-04-21] MEDS ORDERED: Metoclopramide IV* 5 MG/ML 2 ML VIAL IV SLOW PU ONE (11:00)
[2017-04-21] MEDS ORDERED: Famotidine IV* 10 MG/ML 2 ML (20 mg) IV ONE (11:00)
[2017-04-21] MEDS ORDERED: fentaNYL* 50 MCG/ML 2 ML VIAL (100 MCG VIAL) ONE (12:34)
[2017-04-21] MEDS ORDERED: Midazolam* 1 MG/ML 2 ML VIAL (2 MG) ONE (12:34)
--- NOTE | 2017-04-21 13:06 | PN ---
Progress Note - Progress Note Date of Service: 04/21/17 - Pulm f/u note Note: Pt seen and examined at bedside. Pt denies any issues. wants to have bronch done and would like to know diagnosis. BP remians elevated and was given Amlodipine. Active Medications Generic Name Dose Route Start Last Admin Trade Name Freq PRN Reason Stop Dose Admin Acetaminophen 650 mg 04/16/17 20:04 04/19/17 01:42 Tylenol Tab* PO 650 mg Q4H PRN Administration FEVER/PAIN Albuterol 2.5 mg 04/16/17 18:13 Ventolin 2.5 Mg/3 Ml Neb.Toya* INH Q2H PRN SOB/WHEEZING Albuterol/Ipratropium 1 neb 04/21/17 13:00 Duoneb (Albuterol 2.5 Mg/Ipratropium 0.5 Mg) INH [id number] AWAKE PENDING SALE TO [facility] Amlodipine Besylate 5 mg 04/20/17 23:00 04/21/17 09:21 Norvasc Tab* PO Not Given DAILY PENDING SALE TO [facility] Dextrose 12.5 gm 04/16/17 18:17 D50w Syringe 50 Ml* IV PUSH .FOR FS < 60 - SS PRN FS < 60 Guaifenesin 1,200 mg 04/16/17 21:00 04/21/17 09:21 Mucinex* PO Not Given BID PENDING SALE TO [facility] Heparin Sodium (Porcine) 5,000 units 04/18/17 14:00 04/21/17 07:20 Heparin Vial(*) SUBCUT 5,000 units Q8HR PAPI Administration Piperacillin Sod/Tazobactam 100 mls @ 25 mls/hr 04/18/17 18:30 04/21/17 10:28 Sod 3.375 gm/ Sodium Chloride IVPB 25 mls/hr Q8H PAPI Administration Lactated Ringer's 1,000 mls @ 125 mls/hr 04/21/17 06:00 Lactated Ringers 1000 Ml Bag* IV PER RATE PENDING SALE TO [facility] Insulin Human Lispro 0 units 04/16/17 19:00 04/21/17 11:40 Humalog* SUBCUT Not Given [facility] Protocol Metoprolol Tartrate 5 mg 04/19/17 21:13 04/19/17 21:17 Lopressor Iv* IV 5 mg Q6H PRN Administration afib HR >120 Metoprolol Tartrate 50 mg 04/21/17 21:00 Lopressor Tab* PO BID PENDING SALE TO [facility] Pharmacy Consult 1 note 04/16/17 18:00 Zosyn Per Pharmacy* FOLLOW UP .ZOSYN PER PHARMACY PAPI Potassium Phos/Sodium Phos 250 mg 04/20/17 10:00 04/21/17 09:21 Neutra Phos 250 Mg Jacobo* PO 04/21/17 21:01 Not Given BID PENDING SALE TO [facility] Prednisone 20 mg 04/19/17 09:00 04/21/17 09:21 Deltasone Tab* PO Not Given DAILY PENDING SALE TO [facility] Sodium Chloride 1 spray 04/19/17 12:05 Sodium Chloride 0.65% Nasal [place]* BOTH NARES Q4H PRN DISCOMFORT Vital Signs Temp Pulse Resp BP Pulse Ox 99.9 F 100 23 160/84 93 04/21/17 12:00 04/21/17 11:00 04/21/17 11:00 04/21/17 07:00 04/21/17 11:00 O/E: Pt in no distress, alert, awake, orientedx3 HEENT: PERRLA, No JVD, facial hair present Resp:Diminished air entry b/l, poor air entry left side CVS: S1, S2+, tachycardic Abd: Obese, BS+ Ext: No edema Skin: No rash or bruises Neuro: No focal defects WBC 16.4 10^3/ul (3.5-10.8) H RBC 3.52 10^6/ul (4.0-5.4) L Hgb 10.4 g/dl (12.0-16.0) L Hct 31 % (35-47) L MCV 89 fL (80-97) MCH 30 pg (27-31) MCHC 33 g/dl (31-36) RDW 13 % (10.5-15) Plt Count 357 10^3/ul (150-450) MPV 8 um3 (7.4-10.4) Neut % (Auto) 73.3 % (38-83) Lymph % (Auto) 20.7 % (25-47) L [place] % (Auto) 5.7 % (1-9) Eos % (Auto) 0 % (0-6) Baso % (Auto) 0.3 % (0-2) Absolute Neuts (auto) 12.2 10^3/ul (1.5-7.7) H Absolute Lymphs (auto) 3.5 10^3/ul (1.0-4.8) Absolute Monos (auto) 0.9 10^3/ul (0-0.8) H Absolute Eos (auto) 0 10^3/ul (0-0.6) Absolute Basos (auto) 0 10^3/ul (0-0.2) Absolute Nucleated RBC 0.02 10^3/ul Nucleated RBC % 0.1 INR (Anticoag Therapy) 1.14 (0.89-1.11) H APTT 61.1 seconds (26.0-36.3) H D-Dimer, Quantitative 388 ng/mL (Less Than 230) H Sodium 141 mmol/L (133-145) Potassium 3.3 mmol/L (3.5-5.0) L Chloride 106 mmol/L (101-111) Carbon Dioxide 29 mmol/L (22-32) Anion Gap 6 mmol/L (2-11) BUN 17 mg/dL (6-24) Creatinine 0.83 mg/dL (0.51-0.95) Est GFR ( Amer) 88.2 (>60) Est GFR (Non-Af Amer) 68.6 (>60) BUN/Creatinine Ratio 20.5 (8-20) H Glucose 124 mg/dL (70-100) H POC Glucose (mg/dL) 262 mg/dL (70-100) H Hemoglobin A1c 6.0 % (4.0-5.6) H Lactic Acid 1.4 mmol/L (0.5-2.0) Calcium 9.6 mg/dL (8.6-10.3) Phosphorus 2.4 mg/dL (2.5-5.0) L Magnesium 1.8 mg/dL (1.9-2.7) L Total Bilirubin 0.80 mg/dL (0.2-1.0) AST 12 U/L (13-39) L ALT 12 U/L (7-52) Alkaline Phosphatase 70 U/L (34-104) Troponin I 0.04 ng/mL (<0.04) H* B-Natriuretic Peptide 194 pg/mL (-100) H Total Protein 7.1 g/dL (6.4-8.9) Albumin 3.5 g/dL (3.2-5.2) Globulin 3.6 g/dL (2-4) Albumin/Globulin Ratio 1.0 (1-3) Procalcitonin 1.9 ng/mL (<0.6) H TSH 1.68 mcIU/mL (0.34-5.60) Urine Color Straw Urine Appearance Clear Urine pH 6.0 (5-9) Ur Specific [place] 1.004 (1.010-1.030) L Urine Protein Negative (Negative) Urine Ketones Negative (Negative) Urine Blood 2+ (Negative) H Urine Nitrate Negative (Negative) Urine Bilirubin Negative (Negative) Urine Urobilinogen Negative (Negative) Ur Leukocyte Esterase Negative (Negative) Urine WBC (Auto) Trace(0-5/hpf) (Absent) Urine RBC (Auto) Trace(0-2/hpf) (Absent) Ur Squamous Epith Cells Present (Absent) H Uric Acid Crystals Present (Absent) H Urine Bacteria Absent (Absent) Ur Random Creatinine 107.52 mg/dL Ur Random Sodium 20 mmol/L Urine Glucose 1+(50 mg/dl) (Negative) H MRI brain: No abnormalities CT chest/ abdomen was personally reviewed by me: No metastatic disease in abdomen. Has endobronchial lesion in Lt main stem near take off of KATHERYN bronchus , slight improvement in aeration ofleft lung with small effusion and atelctasis. No evidence of mediastinal adenopathy. Non-obstructiong renal calculi and mild splenomegaly I/R: 67 y o f with remote h/o smoking a/w SOB, found to have Lt sided endobronchial lesion with associated post obstructive PNA on left side PNA- WBC count still remains elevated, is on broad spectrum abx Bronchoscopy - endobronchial lesion blocking KATHERYN without much vascularity measuring about 1 cm, well rounded- lung cancer versus carcinoid tumor No significant secretions were noted BAL was obtained, cytology negative, surgical bx negative Biopsy is non-diagnostic due to inability to obtain enough tissue due to hypoxia and bleeding Pt scheduled for rpt bronchoscopy/EBUS in OR under [facility] today Procedure was discussed in detail with pt, risks and benefits were discussed again and she is in agreement , informed consent obtained c/w broad spectrum abx Pt on O2, FiO2 requirements coming down, titrate as tolerated Anticipate bleeding post procedure, will need to be observed closely in ICU
[2017-04-21] MEDS ORDERED: Lidocaine 1% INJ* 10 MG/ML 30 ML SDV ONE (13:38)
[2017-04-21] MEDS ORDERED: Benzonatate CAP* 100 MG PO PRN (17:00)
--- NOTE | 2017-04-21 17:00 | PN ---
Progress Note - Progress Note Date of Service: 04/21/17 - Post procedure note Note: Pt had bronchoscopy this afternoon for evaluation of endobronchial lesion and for lymph node staging. EBUS equipment was not functioning well. Endobronchial needle aspiration and needle biopsies were performed and placed in formalin. Pathologist Dr Sue called at 3:38 pm that biopsy showed malignant cells from FNA. She has contacted Dr Davison for possible radiation of lesion to relieve endobronchial obstruction. Pt was stable post procedure and was transferred back to ICU. ALl her meds to be restarted including diet. Discussed with pts RN
[2017-04-21] MEDS: Metoprolol Tartrate TAB* 50 mg PO SCH (20:12)
[2017-04-22] MEDS: Albuterol/Ipratropium NEB.SOL* Albuterol 2.5 MG/Ipratropium 0.5 MG 3 ML INH SCH ×4 (01:54→20:50)
[2017-04-22] MEDS: ZOSYN 3.375 GM Q8H per EXTENDED INFUSION IVPB SCH ×6 (02:16→17:30)
[2017-04-22] MEDS: Heparin VIAL(*) 5000 UNITS/ML VIAL (FIVE THOUSAND) SUBCUT SCH ×3 (06:04→21:27)
--- NOTE | 2017-04-22 07:28 | PRO ---
BRONCHOSCOPY REPORT: DATE OF PROCEDURE: 04/21/17 PROCEDURE PERFORMED: Bronchoscopy with endobronchial biopsy, endobronchial needle aspiration and bronchoalveolar lavage from left side. PREPROCEDURAL DIAGNOSIS: Endobronchial lesion, left upper lobe. ANESTHESIA: General anesthesia. ANESTHESIOLOGIST: Dr. Fry. DESCRIPTION OF PROCEDURE: Informed consent was obtained from the patient prior to the procedure after all the risks and benefits were thoroughly explained. Patient recently admitted with pneumonia, was found to have endobronchial lesion in the left main stem bronchus at the takeoff of left upper lobe bronchus. Appropriate time-out was agreed on by attending staff prior to the procedure. The patient was intubated with size 8.0 endotracheal tube. A flexible Olympus bronchoscope was inserted through ET tube for airway inspection. Right-sided airway looked patent, no significant secretions were noted. Bronchoscope was then advanced into the left main stem bronchus. There was evidence of endobronchial lesion with near-complete occlusion arising from left main stem bronchus at the level of takeoff into left upper lobe bronchus. Lesion was mobile and bronchoscopy was advanced below the lesion, KATHERYN and LLL bronchi were inspected and were patent. There was irregular mucosal lesion in KATHERYN bronchus. Secretions were trapped and were suctioned out. Bronchoscope was pulled back into left main stem bronchus. Lesion was arising from anterior- medial aspect of bronchus. Endobronchial needle aspiration was performed with [place] cytology needle. Total of 7 passes were made into lesion. Rapid onsite evaluation revealed benign bronchial cells on earlier passes, malignant cells seen on last pass. EBUS bronchoscope couldnot be used, due to technical issues. Endobronchial biopsies were also obtained with biopsy forceps of the lesion with 6 passes. No significant bleeding occurred. Specimen was placed in formalin. Bronchoalveolar lavage was also obtained from the left main stem bronchus. The patient tolerated the procedure well, was extubated and seen in recovery in optimal condition. [id number]/[facility] #: [id number] [facility]
[2017-04-22] MEDS: amLODIPine TAB* 5 MG PO SCH (08:21)
[2017-04-22] MEDS: guaiFENesin ER TAB 600 MG PO SCH ×2 (08:21→21:27)
[2017-04-22] MEDS: Aspirin EC Low Dose* 81 MG TAB.EC PO SCH (08:22)
[2017-04-22] MEDS: Insulin LISPRO* 1 UNITS UNIT SUBCUT SCH ×3 (08:22→16:49)
[2017-04-22] MEDS: predniSONE TAB* 20 MG PO SCH (08:22)
[2017-04-22] MEDS: Metoprolol Tartrate TAB* 50 mg PO SCH ×2 (08:22→21:27)
--- NOTE | 2017-04-22 10:40 | PN ---
Progress Note - Progress Note Date of Service: 04/22/17 Note: CRITICAL CARE MEDICINE Date: 04/22/17 Time: 900 SUBJECTIVE: Patient seen and examined. PHYSICAL EXAM: Vital Signs: Reviewed. stable. 4L O2. Neurologic: communicating well, holds capacity HEENT: pupils equal. Sclera anicteric. Trachea midline. poor dentition Cardiovascular: reg S1 S2 distant Respiratory: dec bs on left still; no wheeze Abdomen: Soft, obese, nt. Extremities: Warm. LABS: Reviewed. IMAGING: Reviewed. MEDICATIONS: Reviewed. ASSESSMENT: 67 F Post obstructive pna & atelectasis Severe sepsis sec to above - resolved Acute hypoxic resp failure - stabilized KATHERYN endobronchial malinancy - awaiting final path PAF sec to sepsis - resolved Uncontrolled DM PLAN: Neurologic: stable. Cardiovascular: Perfusing. vol status ok. bb continued. arb. Respiratory: O2 support and may be dependent on O2. copd adjunctives. pulm f/ u. IS. Gastrointestinal: po. Renal/Metabolic: stable. Infectious Disease: day 7/ zosyn Hematology: ONC f/u. awaiting path. XRT timing Endocrine: prednisone at 20 and taper again tomorrow. ssi. add glipizide back. Musculoskeletal: oob. ambulate. Psych/Social: we discussed malignancy, explaining we are awaiting final path to discuss tx course. step by step. pt expressed understanding. Supportive and preventative care as ordered. SUP: po VTE prophylaxis: heparin subq Disposition: ICU, level 4 Code Status: Full Critical Care Time: 25min FAlex Hernandez DO
[2017-04-22] MEDS: Losartan TAB* 25 MG PO SCH (11:27)
[2017-04-22] MEDS: glipiZIDE TAB* 5 MG PO SCH (11:27)
[2017-04-23] MEDS: Albuterol/Ipratropium NEB.SOL* Albuterol 2.5 MG/Ipratropium 0.5 MG 3 ML INH SCH ×4 (01:51→21:01)
[2017-04-23] MEDS: ZOSYN 3.375 GM Q8H per EXTENDED INFUSION IVPB SCH ×2 (02:36)
[2017-04-23] MEDS: Heparin VIAL(*) 5000 UNITS/ML VIAL (FIVE THOUSAND) SUBCUT SCH ×3 (05:32→21:10)
[2017-04-23 05:48] LABS: Hematocrit 32 % (35-47); Mean Corpuscular HGB Conc 34 g/dl (31-36); Mean Corpuscular Hemoglobin 30 pg (27-31); Mean Corpuscular Volume 89 fL (80-97); Mean Platelet Volume 7 um3 (7.4-10.4); Red Blood Count 3.66 10^6/ul (4.0-5.4); Red Cell Distribution Width 13 % (10.5-15)
[2017-04-23 05:52] LABS: Add Diff/Slide Review? Slide Review Added; Comments Flag Yes
[2017-04-23 06:00] LABS: BUN/Creatinine Ratio 14.8 (8-20); Calcium 9.4 mg/dL (8.6-10.3); EGFR African American 82.4 (>60); EGFR Non-African American 64.1 (>60); Potassium 3.3 mmol/L (3.5-5.0)
[2017-04-23 08:18] LABS: Magnesium 1.8 mg/dL (1.9-2.7)
[2017-04-23] MEDS: guaiFENesin ER TAB 600 MG PO SCH ×2 (08:23→21:08)
[2017-04-23] MEDS: amLODIPine TAB* 5 MG PO SCH (08:23)
[2017-04-23] MEDS: Losartan TAB* 25 MG PO SCH (08:23)
[2017-04-23] MEDS: glipiZIDE TAB* 5 MG PO SCH (08:23)
[2017-04-23] MEDS: Insulin LISPRO* 1 UNITS UNIT SUBCUT SCH ×3 (08:23→17:18)
[2017-04-23] MEDS: Metoprolol Tartrate TAB* 50 mg PO SCH ×2 (08:23→21:09)
[2017-04-23] MEDS: predniSONE TAB* 20 MG PO SCH (08:24)
[2017-04-23] MEDS: Aspirin EC Low Dose* 81 MG TAB.EC PO SCH (08:24)
[2017-04-23] MEDS ORDERED: Magnesium Sulfate 2 GM IV* 2 GM/50 ML BAG IVPB ONE (10:13)
[2017-04-23] MEDS: Acetaminophen TAB* 325 MG PO PRN (15:22)
--- NOTE | 2017-04-23 17:33 | PN ---
Subjective Date of Service: 04/23/17 Interval History: Tmax 100 11am yest. Transferred from ICU. Lives in [place] with and son. completed 7th day zosyn. Still on 3L. biopsy results not finalized yet. Coughing, occasional chills. PT ordered. Family History: Unchanged from Admission Social History: Unchanged from Admission Past Medical History: Unchanged from Admission Objective Active Medications: Acetaminophen (Tylenol Tab*) 650 mg PO Q4H PRN PRN Reason: FEVER/PAIN Last Admin: 04/23/17 15:22 Dose: 650 mg Albuterol (Ventolin 2.5 Mg/3 Ml Neb.Toya*) 2.5 mg INH Q2H PRN PRN Reason: SOB/WHEEZING Albuterol/Ipratropium (Duoneb (Albuterol 2.5 Mg/Ipratropium 0.5 Mg)) 1 neb INH [id number] AWAKE [facility] Last Admin: 04/23/17 14:04 Dose: 1 neb Amlodipine Besylate (Norvasc Tab*) 5 mg PO DAILY [facility] Last Admin: 04/23/17 08:23 Dose: 5 mg Aspirin (Aspirin Ec Low Dose*) 81 mg PO DAILY [facility] Last Admin: 04/23/17 08:24 Dose: 81 mg Dextrose (D50w Syringe 50 Ml*) 12.5 gm IV PUSH .FOR FS < 60 - SS PRN PRN Reason: FS < 60 Glipizide (Glucotrol Tab*) 5 mg PO DAILY [facility] Last Admin: 04/23/17 08:23 Dose: 5 mg Guaifenesin (Mucinex*) 1,200 mg PO BID [facility] Last Admin: 04/23/17 08:23 Dose: 1,200 mg Heparin Sodium (Porcine) (Heparin Vial(*)) 5,000 units SUBCUT Q8HR [facility] Last Admin: 04/23/17 12:44 Dose: 5,000 units Lactated Ringer's (Lactated Ringers 1000 Ml Bag*) 1,000 mls @ 125 mls/hr IV PER RATE [facility] Insulin Human Lispro (Humalog*) 0 units SUBCUT AC [facility] PRN Reason: Protocol Last Admin: 04/23/17 17:18 Dose: 9 units Losartan Potassium (Cozaar Tab*) 25 mg PO DAILY [facility] Last Admin: 04/23/17 08:23 Dose: 25 mg Metoprolol Tartrate (Lopressor Iv*) 5 mg IV Q6H PRN PRN Reason: afib HR >120 Last Admin: 04/19/17 21:17 Dose: 5 mg Metoprolol Tartrate (Lopressor Tab*) 50 mg PO BID [facility] Last Admin: 04/23/17 08:23 Dose: 50 mg Prednisone (Deltasone Tab*) 10 mg PO DAILY [facility] Stop: 04/25/17 09:01 Last Admin: 04/23/17 08:24 Dose: 10 mg Sodium Chloride (Sodium Chloride 0.65% Nasal [place]*) 1 spray BOTH NARES Q4H PRN PRN Reason: DISCOMFORT Vital Signs 04/22/17 04/22/17 04/22/17 19:29 20:00 21:31 Temperature 98.7 F 98.2 F Pulse Rate 96 89 99 Respiratory 16 20 18 Rate Blood Pressure 156/67 174/72 (mmHg) O2 Sat by Pulse 97 99 97 Oximetry 04/23/17 04/23/17 04/23/17 00:05 03:53 04:29 Temperature 98.5 F 98.8 F Pulse Rate 80 87 85 Respiratory 16 16 Rate Blood Pressure 151/93 167/69 154/83 (mmHg) O2 Sat by Pulse 99 100 98 Oximetry 04/23/17 04/23/17 04/23/17 04:36 07:15 08:00 Temperature Pulse Rate 85 95 Respiratory 16 16 Rate Blood Pressure 154/83 (mmHg) O2 Sat by Pulse 96 Oximetry 04/23/17 04/23/17 04/23/17 08:02 12:00 13:58 Temperature 99.0 F 98.3 F Pulse Rate 97 72 84 Respiratory 16 20 Rate Blood Pressure 152/59 140/73 (mmHg) O2 Sat by Pulse 95 98 Oximetry 04/23/17 15:29 Temperature 98.8 F Pulse Rate 84 Respiratory 16 Rate Blood Pressure 142/61 (mmHg) O2 Sat by Pulse 98 Oximetry Oxygen Devices in Use Now: Nasal Cannula Appearance: NAD, sitting in chair. Eyes: No Scleral Icterus, PERRLA Ears/Nose/Mouth/Throat: Mucous Membranes Moist, - - prominent facial hair Respiratory: Symmetrical Chest Expansion and Respiratory Effort, - - sonorous rhonchi left upper lung field, no wheezing or rhonchi. Cardiovascular: NL Sounds; No Murmurs; No JVD, RRR Abdominal: NL Sounds; No Tenderness; No Distention, No Hepatosplenomegaly Extremities: No Edema, No Clubbing, Cyanosis Skin: No Rash or Ulcers, No Nodules or Sclerosis Neurological: Alert and Oriented x 3, NL Sensation, NL Muscle Strength and Tone Result Diagrams: 04/23/17 05:30 04/23/17 05:30 Additional Lab and Data: . Laboratory Results - last 24 hr 04/23/17 04/23/17 04/23/17 05:30 05:30 07:24 WBC 11.0 H RBC 3.66 L Hgb 11.0 L Hct 32 L MCV 89 MCH 30 MCHC 34 RDW 13 Plt Count 335 MPV 7 L Neut % (Auto) 75.3 Lymph % (Auto) 17.8 L [place] % (Auto) 4.8 Eos % (Auto) 1.1 Baso % (Auto) 1.0 Absolute Neuts (auto) 8.3 H Absolute Lymphs (auto) 2.0 Absolute Monos (auto) 0.5 Absolute Eos (auto) 0.1 Absolute Basos (auto) 0.1 Absolute Nucleated RBC 0.02 Nucleated RBC % 0.1 Sodium 137 Potassium 3.3 L Chloride 102 Carbon Dioxide 28 Anion Gap 7 BUN 13 Creatinine 0.88 Est GFR ( Amer) 82.4 Est GFR (Non-Af Amer) 64.1 BUN/Creatinine Ratio 14.8 Glucose 135 H POC Glucose (mg/dL) 139 H Calcium 9.4 Magnesium 1.8 L 04/23/17 04/23/17 11:10 16:38 WBC RBC Hgb Hct MCV MCH MCHC RDW Plt Count MPV Neut % (Auto) Lymph % (Auto) [place] % (Auto) Eos % (Auto) Baso % (Auto) Absolute Neuts (auto) Absolute Lymphs (auto) Absolute Monos (auto) Absolute Eos (auto) Absolute Basos (auto) Absolute Nucleated RBC Nucleated RBC % Sodium Potassium Chloride Carbon Dioxide Anion Gap BUN Creatinine Est GFR ( Amer) Est GFR (Non-Af Amer) BUN/Creatinine Ratio Glucose POC Glucose (mg/dL) 194 H 276 H Calcium Magnesium Microbiology and Other Data: Microbiology 04/16/17 16:37 Blood Venous Aerobic Blood Culture - Final No Growth Day 5 04/16/17 16:37 Blood Venous Anaerobic Blood Culture - Final No Growth Day 5 04/16/17 16:05 Blood Venous Aerobic Blood Culture - Final No Growth Day 5 04/16/17 16:05 Blood Venous Anaerobic Blood Culture - Final No Growth Day 5 04/16/17 22:35 Nasal Nasal Screen MRSA (PCR)(CARRIE) - Final Mrsa Negative 04/16/17 22:35 Urine Legionella Urinary Antigen - Final Negative Legionella 04/16/17 22:35 Urine Streptococcus pneumoniae Ag Screen - Final Negative S. pneumo Antigen Assess/Plan/Problems-Billing Assessment: 67 year old woman PMH DM, HTN, HLD, asthma, GERD p/w Left-sided post- obstructive pneumonia and SEPSIS. Malignant endobronchial mass, final path pending. Planning radiation therapy with Dr. Davison, s/p 7 days zosyn. - Patient Problems (1) Malignant endobronchial neoplasm of left lung Current Visit: Yes Status: Acute Code(s): C34.92 - MALIGNANT NEOPLASM OF UNSP PART OF LEFT BRONCHUS OR LUNG SNOMED Code(s): 574285976 Comment: final pathology pending appreciate heme/onc and pulmology recs planning radiation tx (Dr. Davison) Brain MRI 04/20 w/o e/o mets/enhancement former remote smoking hx (2) Obstructive pneumonia Current Visit: Yes Status: Acute Priority: High Code(s): J18.9 - PNEUMONIA , UNSPECIFIED ORGANISM SNOMED Code(s): 027929869 Comment: - s/p 7 days zosyn. Monitor for recurrent fevers as still with endobronchial lesions (planned radiation therapy) nearly resolved leukocytosis wean oxygen as able. (3) Paroxysmal A-fib Current Visit: Yes Status: Acute Priority: High Code(s): I48.0 - PAROXYSMAL ATRIAL FIBRILLATION SNOMED Code(s): 570578228 Comment: currently NSR. In setting of sepsis metoprolol 50mg BID s/p amio gtt on 04/16 (4) Sepsis Current Visit: Yes Status: Acute Priority: High Comment: resolved (5) Hypertension Current Visit: Yes Status: Acute Code(s): I10 - ESSENTIAL (PRIMARY) HYPERTENSION SNOMED Code(s): 61492577 Comment: metoprolol 50mg BID losartan 25mg daily amlodipine 5mg daily (6) Diabetes mellitus Current Visit: Yes Status: Acute Code(s): E11.9 - TYPE 2 DIABETES MELLITUS WITHOUT COMPLICATIONS SNOMED Code(s): 31130009 Comment: glipizide 5mg daily SSI POCT qachs home also includes metformin 1000mg BID and pioglitazone 15mg daily A1C 6.0% elevated here on steroids Status and Disposition: medicine inpatient. Planned radiation therapy with Dr. Davison to endobronchial malignant obstruction Attending: Ike Levi
[2017-04-24] MEDS: Albuterol/Ipratropium NEB.SOL* Albuterol 2.5 MG/Ipratropium 0.5 MG 3 ML INH SCH ×2 (01:08→07:49)
[2017-04-24] MEDS: Acetaminophen TAB* 325 MG PO PRN (02:40)
[2017-04-24] MEDS: Heparin VIAL(*) 5000 UNITS/ML VIAL (FIVE THOUSAND) SUBCUT SCH (05:29)
[2017-04-24] MEDS: Insulin LISPRO* 1 UNITS UNIT SUBCUT SCH ×2 (09:01→13:11)
[2017-04-24] MEDS: guaiFENesin ER TAB 600 MG PO SCH (10:29)
[2017-04-24] MEDS: amLODIPine TAB* 5 MG PO SCH (10:29)
[2017-04-24] MEDS: Aspirin EC Low Dose* 81 MG TAB.EC PO SCH (10:29)
[2017-04-24] MEDS: Losartan TAB* 25 MG PO SCH (10:29)
[2017-04-24] MEDS: glipiZIDE TAB* 5 MG PO SCH (10:29)
[2017-04-24] MEDS: Metoprolol Tartrate TAB* 50 mg PO SCH (10:29)
[2017-04-24] MEDS: predniSONE TAB* 20 MG PO SCH (10:30)
--- NOTE | 2017-04-24 12:41 | DS ---
DISCHARGE SUMMARY: DATE OF ADMISSION: 04/16/17 DATE OF DISCHARGE: 04/24/17 ADMITTING PROVIDER: Vickie Elizalde NP ATTENDING PHYSICIAN: Ike Levi MD BACKEND DEVELOPER: Mirza Hernandez DO PRIMARY CARE PROVIDER: Dr. Gege Espino. CHIEF COMPLAINT: Cough. PRINCIPAL DIAGNOSES: Endobronchial malignancy causing obstructive pneumonia; atrial fibrillation with rapid ventricular response; sepsis and hypoxic respiratory failure; and acute kidney injury. HISTORY OF PRESENT ILLNESS: Anna Marie Jacobo is a 67-year-old female, past medical history of type 2 diabetic peripheral neuropathy, hypertension, hypercholesterolemia, GERD, kidney stones, asthma, who presented with nonproductive cough for 3 to 4 days, upper respiratory congestion, hoarseness, pain on her left side in the left lower quadrant of her abdomen. She was taking Robitussin, but seemingly made it worse. Denied any fevers, other than hot flashes. She had decreased p.o. intake and increasing shortness of breath. She had some dry heaving, decreased urine output. She presented to the emergency room, had a leukocytosis of 25.7. D-dimer 388. Sodium 129, lactic acid of 2.4, troponin of 0.06. Chest x-ray demonstrated volume loss of the left chest with near complete opacification of the left hemithorax. She had a CT chest, abdomen, and pelvis noncontrast which showed extensive patchy consolidative changes in the left lung consistent with the infiltrate or atelectasis, bilateral nonobstructive nephrolithiasis, mild hepatomegaly. She is going to be AFib with the RVR, initial rates 186. Initial temperature 99.9, blood pressure 99/80. She got 25 mg of diltiazem and then switched to digoxin given low blood pressure. She was admitted with sepsis. Initially started on Zosyn. She was also loaded with amiodarone for the AFib. The patient was seen in consultation with Dr. Kenyon, general ophthalmologist for further evaluation of possible obstructive mass on the left side. There was concern for endobronchial lesion with causing near complete occlusion of his left upper lobe. Bronchoscopy was performed on April 18. An endo-bronchial lesion with near complete occlusion of the left upper lobe bronchus which was rounded with a ball valves type mechanism. Character was observed. The forceps were used and biopsy with 3 passes were obtained. BAL was also done. These later did not show any evidence of malignancy in either at the bronchial lavage or biopsy. Only 3 passes were able to be performed given significant coughing and hypoxia. She had been on the heparin drip for the AFib and that was stopped given epistaxis. She had echocardiogram on April 19, which demonstrated ejection fraction of 65%, evidence of diastolic dysfunction. She required high flow oxygen and given her work of breathing first stage in the ICU, dragline operator /oncologist, Dr. Callahan will evaluate the patient. A brain MRI was obtained, which did not show any evidence of metastatic disease or otherwise enhancements. Dr. Callahan also discussed with Dr. Kenyon whether or not lesion would be amenable to stenting. Dr. Demetrius Davison of radiation/oncology was consulted for radiation therapy to reduce the size of the endobronchial lesions. A second attempt at bronchoscopy and biopsy was made on April 21. EBUS was not working as intended. MILLER cytology needle was used for 7 passes and malignant cells were seen on preliminary pathologist's report. Biopsy forceps were used for 6 passes as well. The patient slowly recovered on the Zosyn. AFib did not return and was transferred out of the ICU on evening of April 22. The patient worked with physical therapy and did well and did not require oxygen when ambulating on the day of discharge. She will have to follow up with radiation/oncology and Dr. Callahan. The patient had BRAYAN on admission with creatinine 1.78, improved to 0.88 near her baseline on day prior to discharge. DISCHARGE MEDICATIONS: Include: 1. Pioglitazone 15 mg q.a.m. 2. Metoprolol tartrate 100 mg p.o. b.i.d. 3. Metformin 1000 mg p.o. b.i.d. 4. Losartan 50 mg p.o. b.i.d. 5. Hydrochlorothiazide tab 25 mg p.o. q.a.m. 6. Glipizide 10 mg p.o. b.i.d. 7. Gemfibrozil 600 mg p.o. b.i.d. 8. Cyanocobalamin 1 tab 500 mcg p.o. q.a.m. 9. Clonidine tab 0.3 mg p.o. b.i.d. 10. Cholecalciferol 5000 units p.o. every other day. 11. Aspirin 81 mg daily. 12. Albuterol 2 puffs inhaled q.6 hours p.r.n. DISCHARGE DIET: Carbohydrate consistent. ACTIVITY LEVEL: No restrictions using a walker at a baseline p.r.n. FOLLOWUP: The patient will follow up with Dr. Demetrius Davison on May 02 at 9 :30.am. She is to follow up with Dr. Yandy Callahan and her primary care provider, Dr. Gege Espino. Final pathology report is still pending, although initial reports indicate malignancy of the endobronchial lesion. TIME SPENT: Time spent on discharge is 40 minutes. [id number]/[facility] #: [id number] MTDCherri
[2017-04-24 12:51] VITALS: BP 152/83
== END 2017-04-24 13:40 | disposition home or self-care (01) | DRG 853 ==
LOC: ED 15:43 → ICU 17:48 → MEDTELE 04-22 13:21
PROVIDERS: ADMIT Internal Medicine; ATTEND Internal Medicine
PROC: 0BB88ZX Excision of Left Upper Lobe Bronchus, Via Natural or Artificial Opening Endoscopic, Diagnostic (ICD-10-PCS; principal; 2017-04-18)
PROC: 0B9G8ZX Drainage of Left Upper Lung Lobe, Via Natural or Artificial Opening Endoscopic, Diagnostic (ICD-10-PCS; 2017-04-18)
PROC: 0B9G8ZX Drainage of Left Upper Lung Lobe, Via Natural or Artificial Opening Endoscopic, Diagnostic (ICD-10-PCS; 2017-04-21)
PROC: 0BB88ZX Excision of Left Upper Lobe Bronchus, Via Natural or Artificial Opening Endoscopic, Diagnostic (ICD-10-PCS; 2017-04-21)
DX: A41.9 Sepsis, unspecified organism (principal); J18.8 Other pneumonia, unspecified organism; J96.01 Acute respiratory failure with hypoxia; N17.9 Acute kidney failure, unspecified; C34.12 Malignant neoplasm of upper lobe, left bronchus or lung; E11.22 Type 2 diabetes mellitus with diabetic chronic kidney disease; E11.42 Type 2 diabetes mellitus with diabetic polyneuropathy; E83.42 Hypomagnesemia; R16.0 Hepatomegaly, not elsewhere classified; E87.1 Hypo-osmolality and hyponatremia; J98.11 Atelectasis; E86.0 Dehydration; I48.0 Paroxysmal atrial fibrillation; I48.91 Unspecified atrial fibrillation; I10 Essential (primary) hypertension; E78.00 Pure hypercholesterolemia, unspecified; K21.9 Gastro-esophageal reflux disease without esophagitis; Z87.442 Personal history of urinary calculi; J45.909 Unspecified asthma, uncomplicated; Z91.048 Other nonmedicinal substance allergy status; J30.2 Other seasonal allergic rhinitis; Z83.6 Family history of other diseases of the respiratory system; Z87.891 Personal history of nicotine dependence; E87.6 Hypokalemia; Z91.14 Patient's other noncompliance with medication regimen; M16.0 Bilateral primary osteoarthritis of hip; H26.9 Unspecified cataract; Z82.49 Family history of ischemic heart disease and other diseases of the circulatory system; Z83.3 Family history of diabetes mellitus; E78.5 Hyperlipidemia, unspecified; R65.20 Severe sepsis without septic shock; E11.65 Type 2 diabetes mellitus with hyperglycemia; H54.40 Blindness, one eye, unspecified eye; R04.0 Epistaxis; N20.0 Calculus of kidney; Z79.84 Long term (current) use of oral hypoglycemic drugs; Z79.82 Long term (current) use of aspirin
CPT/HCPCS: 31625; 36415; 70551; 70552; 71010; 71250; 71260; 74176; 74177; 80048; 80053; 81003; 81015; 82570; 83036; 83605; 83735; 83880; 84100; 84145; 84300; 84443; 84484; 85025; 85027; 85379; 85610; 85730; 87040; 87641; 87899; 88112; 88172; 88173; 88177; 88305; 88341; 88342; 93005; 93306; 94640; 94667; 94668; 94760; A9270-GY; A9579; C8929; J0282; J1160; J1644; J2001; J2250; J2310; J2543; J2930; J3010; J3475; J7512; Q9967

== ENCOUNTER 2017-05-29 06:15 | Observation (INO) | payer MEDICARE ==
[2017-05-29 07:03] LABS: ABS Basophils 0.1 10^3/ul (0-0.2); ABS Eosinophils 0 10^3/ul (0-0.6); ABS Lymphocytes 1.9 10^3/ul (1.0-4.8); ABS Monocytes 0.6 10^3/ul (0-0.8); ABS Neutrophils 14.4 10^3/ul (1.5-7.7); ABS Nucleated RBC 0.02 10^3/ul; Eosinophil % 0 % (0-6); Hematocrit 29 % (35-47); Hemoglobin 9.8 g/dl (12.0-16.0); Mean Corpuscular HGB Conc 33 g/dl (31-36); Mean Corpuscular Hemoglobin 29 pg (27-31); Mean Corpuscular Volume 85 fL (80-97); Mean Platelet Volume 9 um3 (7.4-10.4); Nucleated Red Blood Cells % 0.1; Platelet Count 425 10^3/ul (150-450); Red Blood Count 3.44 10^6/ul (4.0-5.4); Red Cell Distribution Width 16 % (10.5-15); White Blood Count 16.9 10^3/ul (3.5-10.8)
[2017-05-29 07:06] LABS: EGFR Non-African American 20.1 (>60)
--- NOTE | 2017-05-29 07:19 | RAD ---
INDICATION: Cough. COMPARISON: Comparison is made with prior chest x-ray study from April 16, 2017 and a prior PET/CT study from May 11, 2017. TECHNIQUE: A portable view of the chest was obtained. FINDINGS: The heart appears mildly enlarged and unchanged. There is volume loss in the left lung and an infiltrate present in the left lower lobe. This appears similar to the prior PET/CT study and is improved from the older prior chest x-ray study. IMPRESSION: LEFT LOWER LOBE INFILTRATE UNCHANGED SIGNIFICANTLY FROM THE PRIOR PET/CT STUDY.
[2017-05-29] MEDS ORDERED: NS 0.9% 1000 ML* 1,000 ML BOLUS SCH (07:30)
[2017-05-29] MEDS ORDERED: Dextrose 50% Syringe 50 ML* 25 GM/50 ML SYRINGE IV PUSH PRN ×2 (08:23→13:27)
[2017-05-29] MEDS ORDERED: NS 0.9% 1000 ML* 1,000 ML IV SCH (08:30)
[2017-05-29 08:40] LABS: Urine Appearance Cloudy; Urine Blood 1+ (Negative); Urine Color Yellow; Urine Ketones Negative (Negative); Urine Protein 1+(30 mg/dL) (Negative); Urine Specific Gravity 1.008 (1.010-1.030); Urine Urobilinogen Negative (Negative)
--- NOTE | 2017-05-29 08:47 | ED ---
Lou Dee Abhishek, scribed for Madonna Whitten MD on 05/29/17 at 0833 . Progress - Progress Note Progress Note: This patient was signed out by Dr. Germain in the [facility] and is pending disposition. Patient is a 67 female. During reevaluation patient reports chills as well as "shaking behavior." PAtient states that she was not able to see medications because she was unable to "read the label. The following medications are taken by the patient: Glipizide ER 10 mg, Pioglitazone HCL 15 mg , Gemfibrozil 600 mg, Metformin HCL 1000 mg, hydrochlorothiazide 25 mg, metoprolol tartrate 100 mg, clonidine HCL .3 mg, losartan potassium 50 mg, Baby aspirin 81 mg, Vitamin D3 400 iu, Vitamin B12, and Calcium. - Consult/PCP Time Called: 08:20 Consult/PCP: Dr. Anna Consult Reason/Comments: We discussed patient care with Dr. Anna Course/Dx - Course Course Of Treatment: We discussed patient care with Dr. Anna at 0820. Dr. Anna accepts patient care and the patient will be admitted to the [facility]. Dx will be Diabetes poor control and acute kidney injury. - Diagnoses Provider Diagnoses: Poorly controlled diabetes mellitus, Acute kidney injury - Provider Notifications Discussed Care Of Patient With: Ras Anna Time Discussed With Above Provider: 08:20 Instructed by Provider To: Admit As Observation - Critical Care Time Critical Care Time: 30-74 min - 30 mins The documentation as recorded by the Lou bowman Abhishek accurately reflects the service I personally performed and the decisions made by Fish ponce Barbara J, MD.
[2017-05-29] MEDS ORDERED: Dextrose 50% Syringe 50 ML* 25 GM/50 ML SYRINGE ONE (09:21)
[2017-05-29] MEDS ORDERED: Sulfamethox/Trimethoprim DS 800/160* TAB PO SCH (11:14)
[2017-05-29] MEDS: D5W 1/2 NS 1000 ML BAG* 1,000 ML IV SCH ×2 (11:14→18:24)
[2017-05-29] MEDS ORDERED: Sulfamethox/Trimethoprim DS 800/160* TAB ONE (11:18)
[2017-05-29] MEDS: Benzonatate CAP* 100 MG PO PRN (11:21)
[2017-05-29] MEDS ORDERED: D5W 1/2 NS 1000 ML BAG* 1,000 ML IV SCH (12:00)
[2017-05-29] MEDS: Insulin LISPRO* 1 UNITS UNIT SUBCUT SCH ×3 (12:00→20:48)
[2017-05-29] MEDS ORDERED: cefTRIAXone(*) 1 GM in NS 0.9% 50 ML* 50 ML IVPB SCH (12:00)
--- NOTE | 2017-05-29 14:19 | HP ---
CC: Dr. Gege Espino * [facility] MEDICINE HISTORY AND PHYSICAL: DATE OF ADMISSION: 05/29/17 PRIMARY CARE PROVIDER: Dr. Gege Espino. ATTENDING PHYSICIAN: Naldo Anna MD * (dictation provided by Mariluz Krueger NP) CHIEF COMPLAINT: Feeling confused. HISTORY OF PRESENT ILLNESS: Ms. Jacobo is a 67-year-old female with a past medical history of non-insulin dependent diabetes, hypertension, and asthma. She also had a recent admission for pneumonia in April 2017 with finding of lung tumor with plans for surgery in [place]; patient states this is not a malignancy but is followed by Dr. Davison and Dr. Callahan. She presents today to the hospital after feeling confused this morning. She states that she never fully recovered from her pneumonia and hospitalization in April. She has had a persistent cough. She has noted frequent urination with some dysuria at times. She reports incontinence but this is a chronic issue. She feels that this is similar to her past episodes of urinary tract infections. In addition to this, she notes that she has had feeling warm with chills, but she does not have a thermometer to take a temperature. This morning when she awoke, she was feeling confused. She was evaluated by her who decided to call EMS. On arrival of EMS, the patient had a blood glucose of 40. The patient states she does not take her own blood sugar at home as she does not have a glucometer. On further questioning, she notes that she had some issues with loading her medication box recently and noted that there were an unusual number of pills in the slots for each day. She is on glipizide, pioglitazone, and metformin for her diabetes. She has had no chest pain. She reported some lower abdominal pain which is associated with her cough that is now resolved. In the emergency room, Ms. Jacobo was confirmed to have a low blood sugar, to a alethea of 64. She also has acute kidney injury with the BUN of 56, creatinine 2.40. She has a leukocytosis with a white blood cell count of 16.9. She is afebrile. Her urinanalysis is grossly positive. Her blood pressure is stable. She is not tachycardic. Chest x-ray shows confirmed persistence of left- sided infiltrate. PAST MEDICAL HISTORY: 1. History of pneumonia with admission to the hospital in April 2017. 2. Question of lung tumor with plan for resection per the patient in [place] after the holidays. Followed by Dr. Davison and Dr. Kenyon. 3. Type 2 diabetes, non-insulin dependent. 4. Hypertension. 5. Hyperlipidemia. 6. GERD. 7. Kidney stones with lithotripsy in the past. 8. Asthma. 9. History of left hip fracture with ORIF. MEDICATIONS: 1. Glipizide 10 mg p.o. daily. 2. Hydrochlorothiazide 25 mg p.o. q.a.m. 3. Losartan 50 mg p.o. b.i.d. 4. Metformin 1000 mg p.o. b.i.d. 5. Pioglitazone 15 mg p.o. q.a.m. 6. Aspirin 81 mg p.o. q.a.m. 7. Cholecalciferol 5000 units p.o. every other day. 8. Clonidine 0.3 mg p.o. b.i.d. 9. Cyanocobalamin 500 mcg p.o. q.a.m. 10. Gemfibrozil 600 mg p.o. b.i.d. 11. Metoprolol tartrate 100 mg p.o. b.i.d. ALLERGIES: ADHESIVE TAPE. FAMILY HISTORY: The patient reports her mother in her 70s, but she is not sure of the cause. She believes her father of a heart attack also in his 70s. SOCIAL HISTORY: The patient states smoked for 1 month when she was about 20. She drinks alcohol once or twice a month or less. She lives with her , Liu, who is the healthcare proxy. She also lives with her sister and her niece. REVIEW OF SYSTEMS: A 14-point review of systems was completed with Mr. Jacobo and all those not mentioned above were negative. PHYSICAL EXAMINATION GENERAL: Ms. Jacobo is lying in bed. She is in no acute distress. VITAL SIGNS: Temperature 98.1, pulse rate 89, respiratory rate 18, O2 saturation 95% on room air, blood pressure 117/42. LUNGS: Diminished in the left, clear on the right. There is no rhonchi noted. No accessory muscle use. There is good aeration. HEART: S1 and S2. No murmur, rub, or gallop, and regular. ABDOMEN: Soft and nontender with bowel sounds positive x4. EXTREMITIES: No cyanosis, no edema. NEURO: She is alert and oriented x3. Answers all questions appropriately. She moves all extremities equally. There is no facial asymmetry or focal weakness. Extraocular movements were intact. SKIN: Intact. LABORATORY DATA/DIAGNOSTIC STUDIES: WBC 16.9, hemoglobin 9.8, hematocrit 29, platelet count 425,000. Sodium 131, potassium 4.0, chloride 97, serum bicarbonate 22, BUN 56, creatinine 2.40, glucose 206. On arrival, it is now 79. At last check, urine shows positive nitrite, 3+ leuk esterase. Chest x- ray is read by Radiology as follows; "left lower lobe infiltrate unchanged significantly from the prior PET/CT study." ASSESSMENT: Ms. Jacobo is a 67-year-old female with a past medical history of non- insulin dependent diabetes, hypertension, hyperlipidemia, and recent workup for lung cancer, which he states is a lung tumor, with plan for resection in [place]. She presents today to the hospital after an episode of confusion, found to be hypoglycemic with the blood sugar in the 40s via EMS as well as to have a urinary tract infection and acute kidney injury. Our plans are for observation in the hospital for the followin. Confusion. I suspect this is related to her urinary tract infection and hypoglycemia which will be treated as per below. 2. Urinary tract infection. Plan is to treat with ceftriaxone until the patient is stabilized and can consistently take oral intake. Her previous cultures show E. coli which are essentially pansensitive. The patient does not meet sepsis criteria at this time. 3. Acute kidney injury. I suspect this is due to dehydration with urinary tract infection as well as hydrochlorothiazide and losartan. Plan to hold these medications. She will also receive intravenous fluids. Plan to recheck her labs in the a.m. Hold all nephrotoxins and dose medications renally. 4. Hypoglycemia. I suspect this is secondary to an error in taking her medications as she noted herself. We will hold all oral diabetic medications. She will have D5 half normal saline until her blood sugar stabilizes and then will continue with insulin sliding scale with meals. We will plan to discuss the medication regimen with the patient and her to ensure safety of taking medications at discharge. 5. Hypertension. Plan to continue clonidine and metoprolol with hold parameters but hold hydrochlorothiazide and losartan. Her blood pressure is running systolically 110 at this point. 6. Hyperlipidemia. Continue gemfibrozil. 7. History of "lung tumor." On questioning, the patient states that she does not have cancer but was told that she has a "tumor" and that there is a plan for resection in [place] under the direction of Dr. Davison and Dr. Callahan. I will note that the patient had a pathology report from 04/21/17 where it does show malignancy with non-small cell carcinoma. 8. DVT prophylaxis. Heparin subcutaneously. 9. Code status is full code. TIME SPENT: Approximately 60 minutes were spent on the admission of this patient, more than half the time spent with the patient at the bedside reviewing the events leading up to this hospitalization, performing the physical examination, and reviewing my plan of care. MARILUZ KRUEGER, ANNA [id number]/[facility] #: [id number] BRAULIO
[2017-05-29] MEDS: Heparin VIAL(*) 5000 UNITS/ML VIAL (FIVE THOUSAND) SUBCUT SCH ×2 (14:28→20:48)
[2017-05-29] MEDS ORDERED: Acetaminophen TAB* 325 MG PO PRN (15:53)
[2017-05-29] MEDS ORDERED: NS 0.9% 1000 ML* 1,000 ML IV ONE ×2 (15:59→16:01)
--- NOTE | 2017-05-29 16:03 | PN ---
Progress Note - Progress Note Date of Service: 05/29/17 Note: Called by primary RN as patient had temp to 102 and HR 120s. On exam, patient only complaining of chronic cough. Patient now meeting sepsis criteria. Plan to repeat lactic acid and send blood cultures. Patient given 1 L IV fluid in ED as a bolus and has had maintenance fluids since arrival. Plan to add 2L IV fluid now. I suspect that patient's heart rate is elevated secondary to fever, plan to treat with fluids and tylenol. Patient to be placed on telemetry as well.
[2017-05-29 17:24] LABS: EGFR Non-African American 29.4 (>60)
[2017-05-29] MEDS ORDERED: Metoprolol Tartrate TAB* 100 MG TAB PO ONE (18:27)
[2017-05-29] MEDS: Gemfibrozil TAB* 600 MG PO SCH (20:48)
[2017-05-29] MEDS: cloNIDine TAB* 0.1 MG PO SCH (20:48)
[2017-05-29] MEDS ORDERED: Metoprolol Tartrate TAB* 100 MG TAB PO SCH ×2 (21:00)
[2017-05-29] MEDS ORDERED: cloNIDine TAB* 0.1 MG PO SCH (21:00)
[2017-05-30] MEDS: Benzonatate CAP* 100 MG PO PRN (01:49)
[2017-05-30 04:48] LABS: ABS Basophils 0.1 10^3/ul (0-0.2); ABS Eosinophils 0.1 10^3/ul (0-0.6); ABS Monocytes 1.1 10^3/ul (0-0.8); ABS Neutrophils 9.4 10^3/ul (1.5-7.7); ABS Nucleated RBC 0.01 10^3/ul; Eosinophil % 0.4 % (0-6); Hematocrit 25 % (35-47); Hemoglobin 8.4 g/dl (12.0-16.0); Mean Corpuscular HGB Conc 34 g/dl (31-36); Mean Corpuscular Hemoglobin 29 pg (27-31); Mean Corpuscular Volume 85 fL (80-97); Mean Platelet Volume 8 um3 (7.4-10.4); Nucleated Red Blood Cells % 0.1; Platelet Count 374 10^3/ul (150-450); Red Blood Count 2.95 10^6/ul (4.0-5.4); Red Cell Distribution Width 16 % (10.5-15); White Blood Count 15.7 10^3/ul (3.5-10.8)
[2017-05-30 05:04] LABS: EGFR Non-African American 36.6 (>60)
[2017-05-30] MEDS: Heparin VIAL(*) 5000 UNITS/ML VIAL (FIVE THOUSAND) SUBCUT SCH ×3 (05:27→21:04)
[2017-05-30] MEDS: guaiFENesin/CODIEN 100MG-10MG* 5 ML UDC PO PRN ×2 (05:37→12:46)
[2017-05-30] MEDS: Insulin LISPRO* 1 UNITS UNIT SUBCUT SCH ×4 (08:07→21:18)
[2017-05-30] MEDS: D5W 1/2 NS 1000 ML BAG* 1,000 ML IV SCH (08:36)
[2017-05-30] MEDS: Cyanocobalamin TAB* 500 MCG PO SCH (08:37)
[2017-05-30] MEDS: Aspirin Low Dose CHEW TAB* 81 MG PO SCH (08:37)
[2017-05-30] MEDS: Gemfibrozil TAB* 600 MG PO SCH ×2 (08:38→21:04)
[2017-05-30] MEDS: cloNIDine TAB* 0.1 MG PO SCH ×2 (08:38→21:58)
[2017-05-30] MEDS: Metoprolol Tartrate TAB* 100 MG TAB PO SCH ×2 (08:38→21:04)
[2017-05-30] MEDS ORDERED: Sulfamethox/Trimethoprim DS 800/160* TAB PO SCH (09:00)
[2017-05-30] MEDS ORDERED: Levofloxacin 750 MG IVPREMIX(* 750 MG/150 ML BAG IVPB SCH ×2 (11:00→12:00)
--- NOTE | 2017-05-30 14:45 | PN ---
Subjective Date of Service: 05/30/17 Interval History: Patient complains mainly for ongoing non-productive chronic cough, patient endorses some improvement with tessalon. Patient denies hemoptysis, F/C, N/V, increased SOB, dysuria, abdominal pain, or other pain. Family History: Unchanged from Admission Social History: Unchanged from Admission Past Medical History: Unchanged from Admission Objective Active Medications: Acetaminophen (Tylenol Tab*) 650 mg PO Q6H PRN PRN Reason: pain/fever Last Admin: 05/29/17 16:09 Dose: 650 mg Aspirin (Aspirin Low Dose Tab*) 81 mg PO QAM [facility] Last Admin: 05/30/17 08:37 Dose: 81 mg Benzonatate (Tessalon Cap*) 100 mg PO BID PRN PRN Reason: COUGH Last Admin: 05/30/17 01:49 Dose: 100 mg Clonidine HCl (Catapres Tab*) 0.3 mg PO BID [facility] Last Admin: 05/30/17 08:38 Dose: 0.3 mg Cyanocobalamin (Vitamin B12 Tab*) [facility] [place] Last Admin: 05/30/17 08:37 Dose: 500 mcg Dextrose (D50w Syringe 50 Ml*) 12.5 gm IV PUSH .FOR FS < 60 - SS PRN PRN Reason: Fs < 58 Gemfibrozil (Lopid Tab*) 600 mg PO BID [facility] Last Admin: 05/30/17 08:38 Dose: 600 mg Guaifenesin/Codeine Phosphate (Robitussin Ac 100mg-10mg*) 5 ml PO Q4H PRN PRN Reason: COUGH Last Admin: 05/30/17 12:46 Dose: 5 ml Heparin Sodium (Porcine) (Heparin Vial(*)) 5,000 units SUBCUT Q8HR [facility] Last Admin: 05/30/17 14:27 Dose: 5,000 units Levofloxacin/Dextrose (Levaquin 750 Mg Ivpremix(*)) 750 mg in 150 mls @ 100 mls /hr IVPB Q48H [facility] Last Admin: 05/30/17 12:45 Dose: 100 mls/hr Insulin Human Lispro (Humalog*) 0 units SUBCUT ACHS [facility] PRN Reason: Protocol Last Admin: 05/30/17 12:10 Dose: 1 unit Metoprolol Tartrate (Lopressor Tab*) 100 mg PO BID [facility] Last Admin: 05/30/17 08:38 Dose: 100 mg Vital Signs - 8 hr 05/30/17 05/30/17 07:38 11:15 Temperature 98.0 F 97.6 F Pulse Rate 94 63 Respiratory 20 20 Rate Blood Pressure 141/65 98/58 (mmHg) O2 Sat by Pulse 95 99 Oximetry Oxygen Devices in Use Now: None Appearance: Patient is a 67yo female with hirsuitism who appears stated age and is sitting in the bed in NAD with occasional coughing. Eyes: No Scleral Icterus, PERRLA Ears/Nose/Mouth/Throat: NL Teeth, Lips, Gums, Clear Oropharnyx, Mucous Membranes Moist Neck: NL Appearance and Movements; NL JVP, Trachea Midline Respiratory: Symmetrical Chest Expansion and Respiratory Effort Cardiovascular: NL Sounds; No Murmurs; No JVD, RRR, No Edema Abdominal: NL Sounds; No Tenderness; No Distention, No Hepatosplenomegaly, - - Right sided CVA tenderness. Extremities: No Edema, No Clubbing, Cyanosis Skin: No Rash or Ulcers, No Nodules or Sclerosis Neurological: Alert and Oriented x 3, NL Sensation, NL Muscle Strength and Tone , - - CN II-XII intact. Result Diagrams: 05/30/17 04:41 05/30/17 04:41 Assess/Plan/Problems-Billing Assessment: Patient is a 67yo female with a PMH significant for recurrent UTI, PNA, Adenocarcinoma of the lung, DMII, HTN, HLD and Asthma who presents with hypoglycemia likely related to accidental medication overdose as well as UTI and chronic cough. - Patient Problems (1) Urinary tract infection Current Visit: Yes Status: Acute Comment: Patient has recurrent UTI, most recently with Klebsiella Orthinolytica which has been known to be multi-drug resistant. Awaiting sensitivities, antibiotic coverage broadened to levaquin. Clinically improved. CVA tenderness on left side possibly from lung mass. Will treat for Pyelonephritis. (2) Sepsis Current Visit: No Status: Acute Priority: High Comment: Now resolved, unknown cause, could be from PNA or UTI. (3) Diabetes mellitus Current Visit: No Status: Acute Code(s): E11.9 - TYPE 2 DIABETES MELLITUS WITHOUT COMPLICATIONS SNOMED Code(s): 38386044 Comment: glipizide 5mg daily SSI POCT qachs home also includes metformin 1000mg BID and pioglitazone 15mg daily A1C 6.0% elevated here on steroids (4) Hypertension Current Visit: No Status: Acute Code(s): I10 - ESSENTIAL (PRIMARY) HYPERTENSION SNOMED Code(s): 86898630 Comment: metoprolol 50mg BID losartan 25mg daily amlodipine 5mg daily (5) Malignant endobronchial neoplasm of left lung Current Visit: No Status: Acute Code(s): C34.92 - MALIGNANT NEOPLASM OF UNSP PART OF LEFT BRONCHUS OR LUNG SNOMED Code(s): 789106244 Comment: Known malignant adenocarcinoma of lung. Plan for resection. Probable cause of chronic cough. No signs of metastasis. (6) Obstructive pneumonia Current Visit: No Status: Acute Priority: High Code(s): J18.9 - PNEUMONIA , UNSPECIFIED ORGANISM SNOMED Code(s): 910321090 Comment: Treated with 7 days zosyn on 04/23. Monitor for recurrent fevers as still with endobronchial lesions. Current leukocytosis and previous fevers. No SOB, possible current PNA. On Levaquin for UTI. (7) Paroxysmal A-fib Current Visit: No Status: Acute Priority: High Code(s): I48.0 - PAROXYSMAL ATRIAL FIBRILLATION SNOMED Code(s): 784164675 Comment: Was in sinus tachycardia, now in NSR, Metoprolol 100mg BID. No anticoagulation. Will monitor. (8) DVT prophylaxis Current Visit: Yes Status: Acute Code(s): BUS9303 - SNOMED Code(s): 304188881 Comment: Heparin SubQ (9) Full code status Current Visit: Yes Status: Acute Code(s): Z78.9 - OTHER SPECIFIED HEALTH STATUS SNOMED Code(s): 028741663 Status and Disposition: Patient is admitted inpatient, will discharge when medically able.
[2017-05-30] MEDS ORDERED: Codeine TAB* 15 MG PO ONE (20:59)
[2017-05-30] MEDS ORDERED: cloNIDine TAB* 0.1 MG PO SCH (21:57)
[2017-05-31] MEDS: Heparin VIAL(*) 5000 UNITS/ML VIAL (FIVE THOUSAND) SUBCUT SCH (05:40)
[2017-05-31 05:52] LABS: ABS Basophils 0.4 10^3/ul (0-0.2); ABS Eosinophils 0.2 10^3/ul (0-0.6); ABS Lymphocytes 5.1 10^3/ul (1.0-4.8); ABS Monocytes 0.9 10^3/ul (0-0.8); ABS Neutrophils 6.1 10^3/ul (1.5-7.7); ABS Nucleated RBC 0.01 10^3/ul; Eosinophil % 1.5 % (0-6); Hematocrit 26 % (35-47); Hemoglobin 8.5 g/dl (12.0-16.0); Lymphocyte % 39.8 % (25-47); Mean Corpuscular HGB Conc 33 g/dl (31-36); Mean Corpuscular Hemoglobin 28 pg (27-31); Mean Corpuscular Volume 86 fL (80-97); Mean Platelet Volume 8 um3 (7.4-10.4); Nucleated Red Blood Cells % 0.1; Platelet Count 382 10^3/ul (150-450); Red Blood Count 2.98 10^6/ul (4.0-5.4); Red Cell Distribution Width 16 % (10.5-15); White Blood Count 12.8 10^3/ul (3.5-10.8)
[2017-05-31 06:22] LABS: EGFR Non-African American 40.9 (>60)
[2017-05-31] MEDS ORDERED: Magnesium Sulf 4 GM/100 ML IV* 4,000 MG/100 ML BAG IVPB ONE (07:01)
[2017-05-31] MEDS: Cyanocobalamin TAB* 500 MCG PO SCH (07:45)
[2017-05-31] MEDS: Insulin LISPRO* 1 UNITS UNIT SUBCUT SCH ×2 (07:45→12:30)
[2017-05-31] MEDS: Gemfibrozil TAB* 600 MG PO SCH (07:45)
[2017-05-31] MEDS: Aspirin Low Dose CHEW TAB* 81 MG PO SCH (07:45)
[2017-05-31] MEDS: Metoprolol Tartrate TAB* 100 MG TAB PO SCH (08:49)
[2017-05-31] MEDS ORDERED: Cholecalciferol CAP/TAB(NF) ** ENTER STRENGTH IN LABEL DIRECTIONS PO SCH (09:00)
[2017-05-31 13:05] VITALS: BP 101/59
--- NOTE | 2017-06-01 04:34 | DS ---
CC: Dr. Gege Espino * DISCHARGE SUMMARY: DATE OF ADMISSION: 05/29/17 DATE OF DISCHARGE: 05/31/17 PRIMARY CARE PROVIDER: Dr. Gege Espino. MY ATTENDING WHILE IN THE HOSPITAL: Dr. Gypsy Youngblood * (dictated by RIO Arenas) PRIMARY DISCHARGE DIAGNOSES: 1. Hypoglycemia from medication. 2. Urinary tract infection. 3. Possible pneumonia. 4. Chronic cough. SECONDARY DISCHARGE DIAGNOSES: 1. Lung tumor. 2. History of pneumonia. 3. Type 2 diabetes, non-insulin dependent. 4. Hypertension. 5. Hyperlipidemia. 6. Gastroesophageal reflux disease. 7. Kidney stone. 8. Asthma. STUDIES DONE WHILE IN THE HOSPITAL: 1. Chest x-ray from 05/29/17 read as left lower lobe infiltrate, unchanged significantly from prior PET/CT study. MEDICATIONS AT DISCHARGE: 1. Metformin 1000 mg p.o. b.i.d. 2. Vitamin B12 500 mcg p.o. q.a.m. 3. Vitamin D3 5000 units p.o. every other day. 4. Aspirin 81 mg p.o. q. a.m. 5. Metoprolol tartrate 100 mg p.o. b.i.d. 6. Lopid 600 mg p.o. b.i.d. 7. Clonidine 0.3 mg p.o. b.i.d. 8. Tylenol with Codeine 30 mg tab, 1 tab p.o. q.6 hours as needed. 9. Benzonatate 100 mg p.o. b.i.d. as needed. 10. Levofloxacin 750 mg p.o. daily. 11. Glipizide 5 mg p.o. daily. 12. Pioglitazone 7.5 mg p.o. daily. New medications at discharge: 1. Tylenol with Codeine. 2. Tessalon. 3. Levofloxacin. 4. Glipizide. 5. Pioglitazone. Medications discontinued at discharge: 1. Glipizide 10 mg p.o. daily. 2. Hydrochlorothiazide 25 mg p.o. daily. 3. Losartan 50 mg p.o. daily. 4. Pioglitazone 15 mg p.o. daily. HOSPITAL COURSE: This is a brief summary of the patient's presentation. For more details, please see the history and physical from Mariluz Krueger NP, from . In brief, the patient is a 67-year-old female with past medical history significant for the above, who was feeling confused for several days and worse that morning, the patient states that she had issues filling her pill box, and believes she took more than one of certain types of her pills. The patient's blood glucose was 40 on admission. The patient also endorsed frequent urination and dysuria as well as fevers and chills. The patient has a chronic cough, which is nonproductive. The patient also had a creatinine of 2.4 and BUN of 56 and leukocytosis of 15.9. The patient was admitted for hypoglycemia, probably from accidental overdose of her glipizide and pioglitazone and the patient started on a dextrose drip and was monitored with fingersticks every 2 hours. The patient's home antihyperglycemic medications were held. The patient 's home blood pressure medications were also held except for her clonidine and metoprolol. The patient was given antitussives including benzonatate and Tylenol with Codeine. The patient had a urinalysis, which was grossly positive and a culture, which grew Klebsiella ornithinolytica now known as Raoultella ornithinolytica. The patient improved overnight from 05/29/17 to 05/30/17. The patient's blood sugars remained intermittently low, down to 59 to 61 and then trending upwards entering the range of 150 to 200 on 05/30/17 and continuing in that range on 05/31/17. The patient's creatinine also improved from 2.4 to 1.3 at discharge. The patient was found to have magnesium of 1.4 on 05/31/17, which was replaced. The patient had possible CVA tenderness while in the hospital and a fever of 102, but had negative blood cultures and fever. The patient had no hypotension while in the hospital, but her blood pressure remained on the low side of normal. The patient was started on ceftriaxone when she was first admitted to the hospital for her UTI; however, was switched to levofloxacin after the Klebsiella ornithinolytica was identified due to case reports of multidrug resistance and the recommendation for broad spectrum due to the coverage as empiric therapy. The patient had no complaints except for cough, which was initially responsive to Tessalon, but stopped being responsive , and was then responsive to Tylenol with Codeine. The patient has plan to have her lung tumor removed later in [place] at unknown time. The patient follows with Oncology here with Dr. Callahan and with Oncology in [place]. The patient has history of recurrent UTIs, usually with pansensitive E. coli. The patient was discharged to home with instructions to decrease the doses of her pioglitazone and her glipizide initially to half the dose and to check her blood sugar with every meal. The patient was prescribed a glucometer and should check her blood sugar at least 2 times a day initially and can taper this off. PHYSICAL EXAM ON THE DAY OF DISCHARGE: General: The patient is a 67-year-old female who appears stated age and sitting comfortably on bed, in no acute distress. Vital signs at the time of discharge, temperature 97.4, pulse rate 59 , respiratory rate 20, oxygen saturation 96% on room air, blood pressure 101/ 59. HEENT: Head normocephalic, atraumatic. Sclerae anicteric. No conjunctival injection. Nasal mucosa moist. Oral mucosa moist. Pharynx, nonerythematous. No postnasal drainage or exudates noted. Neck: Supple, nontender. No lymphadenopathy. No carotid bruits auscultated. Cardiac: Regular rate and rhythm. No clicks, murmurs, gallops, or rubs. Pulses are 2+ in bilateral dorsalis pedis, posterior tibialis, and radial areas. No edema. Respiratory: Clear to auscultation bilaterally. No wheezes, rales, or rhonchi. Abdomen: Soft, nontender, and nondistended. No abdominal bruits auscultated. No hepatosplenomegaly. Genitourinary: No suprapubic tenderness, left-sided CVA tenderness, unimproved from previous exam. Skin: Clean, dry, intact. Neurologic: Alert and oriented x3. Normal sensation. Normal strength and tone. Cranial nerves II through XII grossly intact. Psychiatric: Pleasant , cooperative. LABORATORY DATA: White blood cell count 12.8, hemoglobin 8.5, platelet count 382. Sodium 132, potassium 4.5, chloride 102, carbon dioxide 19, anion gap 11, BUN 22, creatinine 1.3, glucose 114, hemoglobin A1c 5.7, calcium 9.5, magnesium 1.4. DISCHARGE PLAN: The patient will be discharged to home with the assistance of her for medication management and VNS to assist with medication management and glucose monitoring. The patient should follow up with her primary care provider within 1 week to discuss the lowering of her antihyperglycemic medications, possibly switching to different hyperglycemia medications, which are less likely to cause hypoglycemia and the resumption of her blood pressure medication if indicated. The patient should have repeat BMP at this time to assess her kidney function. The patient should continue levofloxacin for a total of 7 days to cover both possible community-acquired pneumonia related to her lung mass and urinary tract infection, which is susceptible to quinolones. ACTIVITY: As tolerated. DIET: Consistent carbohydrate, heart healthy, no caffeine. TIME SPENT: Approximately 60 minutes was spent on this discharge, 30 of which was spent [id number] with the patient obtaining history and physical and discussing treatment plan. RIO ARENAS [id number]/[facility] #: [id number] BRAULIO
== END 2017-05-31 13:55 | disposition home or self-care (01) ==
LOC: ED 06:15 → MEDTELE 08:22
PROVIDERS: ADMIT Internal Medicine; ATTEND Internal Medicine
DX: E11.649 Type 2 diabetes mellitus with hypoglycemia without coma (principal); Z79.84 Long term (current) use of oral hypoglycemic drugs; N39.0 Urinary tract infection, site not specified; R05 Cough; N17.9 Acute kidney failure, unspecified; C34.92 Malignant neoplasm of unspecified part of left bronchus or lung; A41.9 Sepsis, unspecified organism; I10 Essential (primary) hypertension; E78.5 Hyperlipidemia, unspecified; K21.9 Gastro-esophageal reflux disease without esophagitis; J45.909 Unspecified asthma, uncomplicated; Z79.899 Other long term (current) drug therapy; R41.0 Disorientation, unspecified; Z87.891 Personal history of nicotine dependence; J18.9 Pneumonia, unspecified organism; I48.0 Paroxysmal atrial fibrillation
CPT/HCPCS: 36415; 71010; 80048; 80053; 81003; 81015; 83036; 83605; 83735; 83880; 85025; 85060; 87040; 87077; 87086; 87186; 96365; 96366; 96367; 96372; 99291; A9270-GY; G0378; J0696; J1644; J3475

== ENCOUNTER → 2018-02-22 14:45 | Emergency (ER) | payer MEDICARE ==
[~2018-02-22 14:45] MED LIST: Iodixanol* (CONTRAST) 320 MG/ML 100 ML SDV IV ONE
--- NOTE | 2018-02-22 19:54 | ED ---
Shortness of Breath - HPI Summary HPI Summary: This pt is a 68 y/o female presenting to [facility] c/o SOB for the past 1 month. Pt reports her PCP saw her and had lab work done. Pt was sent to [facility] 2 days ago by her PCP and had a chest XR done that resulted normal. Pt states that for the past 1 month she has been having SOB on exertion. She reports she has to stop and catch her breath when ambulating. Pt describes constant SOB, that has not been waking her up at night. Lying flat on bed aggravates her SOB and has to sleep on a recliner at night. Additionally pt notes she has been losing her voice since a few days ago. Denies fever, chills, swelling in LE, chest pain. Pt received a flu shot 2 days ago. Her PCP called her this morning and advised her to come to the ED. PMHx includes diabetes. Pt had a fat tissue mass taken out from her left lung in June 2017. - History of Current Complaint Chief Complaint: EDShortnessOfBreath Time Seen by Provider: 02/22/18 19:47 Hx Obtained From: Patient Onset/Duration: Lasting Weeks, Still Present Timing: Constant Current Severity: Moderate Dyspnea At: Exertion Aggrevating Factors: Movement, Recumbent Position Alleviating Factors: Upright Position Associated Signs & Symptoms: Negative - Allergy/Home Medications Allergies/Adverse Reactions: Allergies Allergy/AdvReac Type Severity Reaction Status Date / Time Adhesive Tape AdvReac Intermediate Rash Verified 06/11/16 17:56 ENVIRONMENTAL/SEASONAL Allergy ASTHMA Uncoded 06/11/16 17:56 FLAREUPS PMH/Surg Hx/FS Hx/Imm Hx Endocrine/Hematology History: Reports: Hx Diabetes - non insulin dependent Cardiovascular History: Reports: Hx Hypercholesterolemia, Hx Hypertension Denies: Hx Pacemaker/ICD Comment Only: Other Cardiovascular Problems/Disorders - HIGH CHOLESTEROL Respiratory History: Reports: Hx Asthma - MILD ASTHMA GI History: Reports: Hx Gastroesophageal Reflux Disease - CONTROLLED WITH MEDICATION History: Reports: Hx Kidney Stones - HAS HAD LASER FOR STONES; PRESENTLY ON THE LEFT- Denies: Hx Renal Disease Musculoskeletal History: Reports: Hx Arthritis - BILAT. HIPS Sensory History: Reports: Hx Cataracts, Hx Contacts or Glasses, Hx Legally Blind - left eye blind Denies: Hx Hearing Aid Opthamlomology History: Reports: Hx Cataracts, Hx Contacts or Glasses, Hx Legally Blind - left eye blind Psychiatric History: Denies: Hx Panic Disorder - Surgical History Surgery Procedure, Year, and Place: APPY AGE 3. TONSILLECTOMY AGE 12-[facility]. LEFT HIP FRACTURE 11/2009 PIN/[facility]. KIDNEY STONES X2 2010-[facility]. laser eye surgery for glaucoma. right hip replacement Hx Anesthesia Reactions: No Infectious Disease History: No Infectious Disease History: Denies: Hx Clostridium Difficile, Hx Hepatitis, Hx Human Immunodeficiency Virus (HIV), Hx of Known/Suspected MRSA, Hx Shingles, Hx Tuberculosis, Hx Known/ Suspected VRE, Hx Known/Suspected VRSA, History Other Infectious Disease, Traveled Outside the [place] in Last 30 Days - Family History Known Family History: Positive: Cardiac Disease, Hypertension, Diabetes - Social History Alcohol Use: Rare Hx Substance Use: No Substance Use Type: Reports: None Hx Tobacco Use: Yes - 1 pack smoking history Smoking Status (MU): Former Smoker Type: Cigarettes Have You Smoked in the Last Year: No Review of Systems Negative: Fever, Chills Negative: Chest Pain Positive: Shortness Of Breath. Negative: Cough Negative: Edema - in LE All Other Systems Reviewed And Are Negative: Yes Physical Exam - Summary Physical Exam Summary: Appearance: Well-appearing, Well-nourished, lying in bed comfortably Skin: Warm, dry, no obvious rash Eyes: sclera anicteric, no conjunctival pallor ENT: mucous membranes moist, pharynx appears normal Neck: Supple, nontender Respiratory: Clear to auscultation, no signs of respiratory distress Cardiovascular: Normal S1, S2. No murmurs. Normal distal pulses in tibial and radial bilaterally. Abdomen: Soft, nontender, normal active bowel sounds present Musculoskeletal: Normal, Strength/ROM Intact. No peripheral edema. Neurological: A&Ox3, awake and alert, mentation is normal, speech is fluent and appropriate Psychiatric: affect is normal, does not appear anxious or depressed Triage Information Reviewed: Yes Vital Signs On Initial Exam: Initial Vitals Temp Pulse Resp BP Pulse Ox 97.8 F 66 20 129/59 97 02/22/18 15:17 02/22/18 15:17 02/22/18 15:17 02/22/18 15:17 02/22/18 15:17 Vital Signs Reviewed: Yes Diagnostics - Vital Signs Vital Signs Temp Pulse Resp BP Pulse Ox 02/22/18 19:42 99.4 F 59 20 131/58 98 02/22/18 15:17 97.8 F 66 20 129/59 97 - Laboratory Result Diagrams: 02/22/18 20:21 02/22/18 20:21 Lab Statement: Any lab studies that have been ordered have been reviewed, and results considered in the medical decision making process. - Radiology Chest XR Xray Interpretation: Positive (See Comments) - Left sided pleural effusion, otherwise it is clear Radiology Interpretation Completed By: ED Physician - CT CTA Chest CT Interpretation: Positive (See Comments) - IMPRESSION: 1. No pulmonary emboli. 2. Chronic mildly increased left pleural effusion with associated left lung volume loss. 3. Multinodular goiter. Dr. Carter has reviewed this report. CT Interpretation Completed By: Radiologist - EKG 19:58 Cardiac Rate: NL - at 61 bpm EKG Rhythm: Sinus Rhythm EKG Interpretation: Borderline ST elevation, lateral leads Course/Dx - Course Course Of Treatment: This is a 68-year-old woman who was referred to the ED by her primary care doctor for further evaluation of shortness of breath of approximately one months duration. This is mainly with exertion. Her workup here is notable for a chest x-ray that shows a small left pleural effusion. There was some concern on the part of her primary doctor about pulmonary embolus , and her d-dimer was mildly elevated, so CT pulmonary angiogram was done and does not show any pulmonary embolus or any other primary lung disease. The exact etiology of her dyspnea is unclear at this point, but she does not appear ill enough to require hospitalization. Troponin assay is negative and her EKG does not show any acute abnormalities. She has had some recent cough and other symptoms that make her think she is coming down with some type of respiratory infection, so I have called in an empiric course of azithromycin for her. I did caution her that she will need close follow-up with her primary care doctor who may wish to order further outpatient tests, and she should come back here if she is getting acutely worse. - Diagnoses Provider Diagnoses: Dyspnea, Pleural effusion Discharge - Sign-Out/Discharge Documenting (check all that apply): Patient Departure - Discharge - Discharge Plan Condition: Good Disposition: HOME Prescriptions: Azithromycin TAB* [Zithromax TAB (Z-RAMONITA) 250 mg #6 tabs] 2 tab PO .TODAY, THEN 1 DAILY #1 ramonita Patient Education Materials: Dyspnea (ED) Referrals: Gege Espino MD [Primary Care Provider] - - Billing Disposition and Condition Condition: GOOD Disposition: Home - Attestation Statements Document Initiated by Live: Yes Documenting Scribe: Mana Richmond Provider For Whom Live is Documenting (Include Credential): Aleksandar Carter MD Scribe Attestation: IMana, scribed for Aleksandar Carter MD on 02/23/18 at 0327. Scribe Documentation Reviewed: Yes Provider Attestation: The documentation as recorded by the Mana bowman accurately reflects the service I personally performed and the decisions made by me, Aleksandar Carter MD
[2018-02-22 20:27] LABS: Hematocrit 39 % (35-47); Hemoglobin 13.1 g/dl (12.0-16.0); Mean Corpuscular HGB Conc 34 g/dl (31-36); Mean Corpuscular Hemoglobin 29 pg (27-31); Mean Corpuscular Volume 86 fL (80-97); Mean Platelet Volume 8.6 um3 (7.4-10.4); Platelet Count 320 10^3/ul (150-450); Red Blood Count 4.57 10^6/ul (4.00-5.40); Red Cell Distribution Width 15 % (10.5-15); White Blood Count 16.5 10^3/ul (3.5-10.8)
[2018-02-22 20:54] LABS: EGFR Non-African American 55.8 (>60)
[2018-02-22 21:42] LABS: ABS Basophils 0.2 10^3/ul (0-0.2); ABS Eosinophils 0.3 10^3/ul (0-0.6); ABS Lymphocytes 7.5 10^3/ul (1.0-4.8); ABS Monocytes 0.8 10^3/ul (0-0.8); ABS Neutrophils 7.6 10^3/ul (1.5-7.7)
[2018-02-22 21:47] LABS: ABS Basophils 0 10^3/ul (0-0.2); ABS Neutrophils 7.9 10^3/ul (1.5-7.7); Monocytes % 3 % (0-7)
--- NOTE | 2018-02-22 23:04 | RAD ---
EXAM: CT Angiography Chest With Intravenous Contrast CLINICAL HISTORY: 68 years old, female; Signs and symptoms; Shortness of breath; Additional info: Damian, elev d-dimer TECHNIQUE: Axial computed tomographic angiography images of the chest with intravenous contrast using pulmonary embolism protocol. All CT scans at this facility use at least one of these dose optimization techniques: automated exposure control; mA and/or kV adjustment per patient size (includes targeted exams where dose is matched to clinical indication); or iterative reconstruction. 3D and MIP reconstructed images were created and reviewed. Coronal and sagittal reformatted images were created and reviewed. CONTRAST: 91 mL of VISIPAQUE 320 administered intravenously. COMPARISON: C/A/P W CT CHEST/ABD/PEL W 04/20/2017 3:57 PM FINDINGS: Pulmonary arteries: Pulmonary arteries are well opacified to the subsegmental branches. Normal caliber main pulmonary artery. No filling defects throughout the pulmonary artery tree. Aorta: The aorta demonstrates mild atherosclerotic calcification. 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 Lungs: Compressive atelectasis posterior left lower lobe similar to prior study. Remaining lungs are clear. No mass. Pleural space: Mildly increased moderate left pleural effusion. No pneumothorax or right effusion. Heart: Normal. No cardiomegaly. No significant pericardial effusion. No evidence of RV dysfunction. Thyroid: Enlarged heterogeneous thyroid dystrophic calcifications. Bones/joints: The thoracic spine demonstrates moderate degenerative changes at multiple levels. No fractures. No suspicious bone lesions. No dislocation. Soft tissues: Normal. Lymph nodes: Normal. No enlarged lymph nodes. IMPRESSION: 1. No pulmonary emboli. 2. Chronic mildly increased left pleural effusion with associated left lung volume loss. 3. Multinodular goiter.
[2018-02-22 23:56] VITALS: BP 133/68
--- NOTE | 2018-02-23 07:15 | RAD ---
INDICATION: Shortness of breath. COMPARISON: Comparison is made to prior study from May 29, 2017. TECHNIQUE: Dual-energy PA and lateral views of the chest were obtained. FINDINGS: The heart is within normal limits in size. Mediastinal and hilar contours appear within normal limits. There is a small left pleural effusion and basilar infiltrate. The right lung appears clear. IMPRESSION: SMALL LEFT BASILAR INFILTRATE AND PLEURAL EFFUSION. R2
== END | disposition home or self-care (01) ==
LOC: ED 14:45
DX: R06.00 Dyspnea, unspecified (principal); J90 Pleural effusion, not elsewhere classified; R06.02 Shortness of breath; E11.9 Type 2 diabetes mellitus without complications; Z79.4 Long term (current) use of insulin; Z87.891 Personal history of nicotine dependence
CPT/HCPCS: 36415; 71046; 71275; 80053; 83605; 83880; 84484; 85025; 85060; 85379; 93005; 99282; Q9967

== ENCOUNTER 2018-06-16 10:16 | Emergency (ER) | payer MEDICARE ==
[2018-06-16] MEDS ORDERED: Lidocaine 1% MPF* 2 ML VIAL INJ ONE (10:47)
[2018-06-16] MEDS ORDERED: cefTRIAXone VIAL(*) 1,000 MG VIAL IM ONE (10:47)
[2018-06-16 10:48] VITALS: BP 118/73
[2018-06-16] MEDS ORDERED: Lidocaine 1% MPF* 2 ML VIAL ONE (11:01)
[2018-06-16] MEDS ORDERED: cefTRIAXone VIAL(*) 1,000 MG VIAL ONE (11:02)
--- NOTE | 2018-06-16 12:49 | UC ---
Complaint Female HPI - HPI Summary HPI Summary: Dysuria for about 4 days. She says this feels similar to prior UTI. She is a well controlled dm II only on oral meds. Sugars have been low 100s. She denies fever or vomiting. No chills or rigors. No vaginal complaints. - History Of Current Complaint Chief Complaint: UCGU Stated Complaint: URINARY Time Seen by Provider: 06/16/18 10:37 Hx Obtained From: Patient Hx Last Menstrual Period: unknown ?: No Onset/Duration: Gradual Onset, Lasting Days Timing: Constant, Lasting Days Severity Initially: Mild Severity Currently: Moderate Pain Intensity: 0 Character: Burning Aggravating Factor(s): Urination Alleviating Factor(s): Nothing Associated Signs And Symptoms: Positive: Back Pain. Negative: Fever, Nausea, Vomiting(# Of Episodes =), Genital Swelling - Allergies/Home Medications Allergies/Adverse Reactions: Allergies Allergy/AdvReac Type Severity Reaction Status Date / Time Adhesive Tape AdvReac Intermediate Rash Verified 06/16/18 10:48 ENVIRONMENTAL/SEASONAL Allergy ASTHMA Uncoded 06/16/18 10:48 FLAREUPS Home Medications: Home Medications Gabapentin [Neurontin] 100 mg PO DAILY 06/16/18 [History Confirmed 06/16/18] PMH/Surg Hx/FS Hx/Imm Hx Previously Healthy: No - dm. - Surgical History Surgical History: Yes Surgery Procedure, Year, and Place: APPY AGE 3. TONSILLECTOMY AGE 12-[facility]. LEFT HIP FRACTURE 11/2009 PIN/PLATE-[facility]. KIDNEY STONES X2 2010-[facility]. laser eye surgery for glaucoma. right hip replacement - Family History Known Family History: Positive: Cardiac Disease, Hypertension, Diabetes - Social History Lives: With Family Alcohol Use: Rare Substance Use Type: None Smoking Status (MU): Former Smoker Type: Cigarettes Have You Smoked in the Last Year: No When Did the Patient Quit Smoking/Using Tobacco: 1960 Household Exposure Type: Cigarettes - Immunization History Most Recent Influenza Vaccination: 2017 Most Recent Pneumonia Vaccination: 2017 Review of Systems All Other Systems Reviewed And Are Negative: Yes Genitourinary: Positive: Dysuria Physical Exam Triage Information Reviewed: Yes Appearance: Well-Appearing, No Pain Distress, Well-Nourished Vital Signs: Initial Vital Signs Temp 98.4 F 06/16/18 10:43 Pulse 74 06/16/18 10:43 Resp 16 06/16/18 10:43 BP 118/73 06/16/18 10:43 Pulse Ox 98 06/16/18 10:43 Vital Signs Reviewed: Yes Eye Exam: Normal Eyes: Positive: Conjunctiva Clear Neck: Positive: Supple, Nontender. Negative: Nuchal Rigidity Respiratory: Positive: No accessory muscle use. Negative: Respiratory distress Cardiovascular: Positive: Brisk Capillary Refill Abdomen Description: Positive: No Organomegaly, Soft, CVA Tenderness (R) - without guarding or wincing.. Negative: Distended, Guarding Musculoskeletal: Positive: No Edema Neurological: Positive: Alert, Muscle Tone Normal. Negative: Fatigued Psychological: Positive: Age Appropriate Behavior Skin: Negative: Rashes Complaint Female Dx - Course Course Of Treatment: Neg sirs criteria per vitals. She does agree to return to ED for any worsening or new symptoms which were reviewed in detail. present for the conversation. This may be pyelonephritis given CVA tenderness. - Differential Dx/Diagnosis Differential Diagnosis/HQI/PQRI: Cervicitis, Endometriosis, Ovarian Cyst, Ovarian Torsion, Retained Foreign Body, Tubo-ovarian Abscess, Ureteral Stone, Urinary Tract Infection Provider Diagnosis: UTI (urinary tract infection) Discharge - Sign-Out/Discharge Documenting (check all that apply): Patient Departure All imaging exams completed and their final reports reviewed: No Studies - Discharge Plan Condition: Good Disposition: HOME Prescriptions: Cephalexin CAP* [Keflex CAP*] 500 mg PO TID #21 cap Patient Education Materials: Urinary Tract Infection in Women (ED) Referrals: Gege Espino MD [Primary Care Provider] - - Billing Disposition and Condition Condition: GOOD Disposition: Home
== END 2018-06-16 11:34 | disposition home or self-care (01) ==
LOC: UCCORT 10:16
DX: N39.0 Urinary tract infection, site not specified (principal); B96.89 Other specified bacterial agents as the cause of diseases classified elsewhere; E11.9 Type 2 diabetes mellitus without complications; Z79.84 Long term (current) use of oral hypoglycemic drugs; Z87.440 Personal history of urinary (tract) infections; Z87.891 Personal history of nicotine dependence
CPT/HCPCS: 81003; 87077; 87086; 87186; 99212; G0463; J0696

== ENCOUNTER 2019-02-13 21:29 | Emergency (ER) | payer MEDICARE ==
[2019-02-13 22:07] VITALS: BP 184/83
--- NOTE | 2019-02-13 22:36 | UC ---
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 She tries to urinate and it hurts and hardly anything comes out. Starting to get pain in left back and abdomen. Eating and drinking ok. " -pain is mild. -no n/v/ fevers/chills. -here w/ - History Of Current Complaint Chief Complaint: UCGU Stated Complaint: URINARY COMPLAINT Time Seen by Provider: 02/13/19 22:15 Hx Last Menstrual Period: unknown Pain Intensity: 6 - Allergies/Home Medications Allergies/Adverse Reactions: Allergies Allergy/AdvReac Type Severity Reaction Status Date / Time Adhesive Tape AdvReac Intermediate Rash Verified 02/13/19 22:08 ENVIRONMENTAL/SEASONAL Allergy ASTHMA Uncoded 02/13/19 22:08 FLAREUPS PMH/Surg Hx/FS Hx/Imm Hx Previously Healthy: Yes Endocrine History: Diabetes Psychological History: Anxiety - Surgical History Surgical History: Yes Surgery Procedure, Year, and Place: APPY AGE 3. TONSILLECTOMY AGE 12-[facility]. LEFT HIP FRACTURE 11/2009 PIN/PL[facility]. KIDNEY STONES X2 2010-[facility]. laser eye surgery for glaucoma. right hip replacement - Family History Known Family History: Positive: Cardiac Disease, Hypertension, Diabetes - Social History Alcohol Use: None Substance Use Type: None Smoking Status (MU): Former Smoker Type: Cigarettes Have You Smoked in the Last Year: No When Did the Patient Quit Smoking/Using Tobacco: Household Exposure Type: Cigarettes - Immunization History Most Recent Influenza Vaccination: 2016 Most Recent Pneumonia Vaccination: 2017 Review of Systems All Other Systems Reviewed And Are Negative: Yes Constitutional: Positive: Fatigue Skin: Positive: Negative. Negative: Rash Eyes: Positive: Negative ENT: Positive: Negative Respiratory: Positive: Negative Cardiovascular: Positive: Negative Gastrointestinal: Positive: Negative. Negative: Abdominal Pain, Vomiting, Diarrhea, Nausea Genitourinary: Positive: Dysuria, Frequency, Urgency. Negative: Hematuria Motor: Positive: Negative Neurovascular: Positive: Negative Musculoskeletal: Positive: Negative Neurological: Positive: Negative Psychological: Positive: Negative Is Patient Immunocompromised?: No Physical Exam Triage Information Reviewed: Yes Appearance: Well-Appearing, No Pain Distress, Well-Nourished Vital Signs: Initial Vital Signs Temp 99.1 F 02/13/19 22:02 Pulse 109 02/13/19 22:02 Resp 18 02/13/19 22:02 BP 184/83 02/13/19 22:02 Pulse Ox 94 02/13/19 22:02 Vital Signs Reviewed: Yes Eye Exam: Normal ENT Exam: Normal Neck exam: Normal Respiratory Exam: Normal Respiratory: Positive: Lungs clear Cardiovascular Exam: Normal Abdomen Description: Positive: Other: - soft/NT. Negative: CVA Tenderness (R), CVA Tenderness (L) Musculoskeletal Exam: Normal Neurological Exam: Normal Psychological Exam: Normal Skin Exam: Normal Complaint Female Dx - Course Course Of Treatment: + 3 LE, + 3 blood. neg nitrates -miniomal amt of urine provided. not enough to rovide for a urine cx. -she was later able to provide more urine for isiah cx. -keflex 500mgs po 1 dose given here -rx keflex 500mgs tid po x 7 d #20 - Differential Dx/Diagnosis Differential Diagnosis/HQI/PQRI: Urinary Tract Infection Provider Diagnosis: Dysuria Discharge ED - Sign-Out/Discharge Documenting (check all that apply): Patient Departure All imaging exams completed and their final reports reviewed: No Studies - Discharge Plan Condition: Stable Disposition: HOME Prescriptions: Cephalexin CAP* [Keflex CAP*] 500 mg PO TID #20 cap Patient Education Materials: Urinary Tract Infection in Women (ED) Referrals: Luis Fernando Edgar MD [Primary Care Provider] - 5 Days Additional Instructions: -It is recommended that you take a priobiotic daily while you are on antibiotics. A few common brands that you can buy over the counter are colon health, align and florastor. These can help prevent a colon infection called c diff that can be associated with antibiotic use. -Increase water intake. You should go to the ER with worsening symptoms, fevers/ chills/body aches. - Billing Disposition and Condition Condition: STABLE Disposition: Home
[2019-02-13] MEDS ORDERED: Cephalexin CAP* 500 MG PO ONE (22:41)
== END 2019-02-13 22:54 | disposition home or self-care (01) ==
LOC: UCCORT 21:29
DX: R30.0 Dysuria (principal); R53.83 Other fatigue; E11.9 Type 2 diabetes mellitus without complications; Z91.048 Other nonmedicinal substance allergy status; Z96.641 Presence of right artificial hip joint; Z87.891 Personal history of nicotine dependence
CPT/HCPCS: 81003; 87077; 87086; 87186; 99212; A9270-GY; G0463

== ENCOUNTER 2022-07-30 10:05 | Inpatient (IN) ==
[2022-07-30 11:09] LABS: ABS Basophils 0.1 10^3/ul (0-0.2); ABS Lymphocytes 2.2 10^3/ul (1.0-4.8); ABS Monocytes 0.9 10^3/ul (0-0.8); ABS Neutrophils 8.4 10^3/ul (1.5-7.7); Eosinophil % 0.2 %; Hematocrit 36 % (35-47); Hemoglobin 11.9 g/dL (12.0-16.0); Lymphocyte % 19.2 %; Mean Corpuscular HGB Conc 33 g/dL (31-36); Mean Corpuscular Hemoglobin 28 pg (27-31); Mean Corpuscular Volume 83 fL (80-97); Mean Platelet Volume 7.8 fL (7.4-10.4); Nucleated Red Blood Cells % 0.1; Platelet Count 201 10^3/uL (150-450); Red Blood Count 4.34 10^6 /uL (3.70-4.87); Red Cell Distribution Width 15 % (10-15); White Blood Count 11.5 10^3/uL (3.5-10.8)
[2022-07-30] MEDS ORDERED: Lactated Ringers 1000 ml BAG 1,000 ML IV ONE (11:23)
[2022-07-30 11:48] LABS: Albumin 2.7 g/dL (3.2-5.2); Albumin/Globulin Ratio 2.1 (1-3); Calcium 7.4 mg/dL (8.6-10.3); Creatinine, Serum 0.78 mg/dL (0.51-0.95); Globulin 1.3 g/dL (2-4); Potassium 2.9 mmol/L (3.5-5.0); Total Bilirubin 0.4 mg/dL (0.2-1.0); eGFR CKD-EPI 80.6 (>60)
[2022-07-30] MEDS ORDERED: Potassium Chlor 20 meq TAB.ER PO ONE (11:54)
[2022-07-30 12:27] LABS: Magnesium 0.8 mg/dL (1.9-2.7)
[2022-07-30] MEDS ORDERED: Magnesium Sulfate 2 gm BAG 2 GM/50 ML BAG IVPB ONE ×2 (12:30→13:45)
[2022-07-30 13:28] LABS: Urine Appearance Clear; Urine Bilirubin Negative (Negative); Urine Blood 2+ (Negative); Urine Color Yellow; Urine Glucose Negative (Negative); Urine Ketones Negative (Negative); Urine Nitrite Negative (Negative); Urine Protein Negative (Negative); Urine Urobilinogen Negative (Negative)
[2022-07-30 13:30] LABS: Urine Bacteria Absent (Absent); Urine Red Blood Cell 2+(6-10/hpf) (Absent); Urine Squamous Epithelial Cell Present (Absent); Urine White Blood Cell 1+(6-10/hpf) (Absent)
[2022-07-30] MEDS: KCL 20 MEQ/100 ML IVPREMIX 20 MEQ/100 ML BAG IV SCH ×2 (14:44→23:08)
[2022-07-30] MEDS ORDERED: Iodixanol (CONTRAST) 320 MG/ML 100 ML SDV IV ONE (15:44)
[2022-07-30] MEDS ORDERED: Ondansetron 4 mg VIAL 2 MG/ML 2 ml VIAL IV PRN (16:26)
[2022-07-30] MEDS ORDERED: Lactated Ringers 1000 ml BAG 1,000 ML IV SCH (17:00)
[2022-07-30] MEDS: guaiFENesin 100 mg/5 ml LIQ unit dose cup PO PRN (20:25)
[2022-07-30] MEDS: Enoxaparin 40 MG/0.4 ML SYR SUBCUT SCH (20:25)
[2022-07-30] MEDS: Nystatin TOP POWDER 15 GM BTL TOPICAL SCH (23:15)
[2022-07-31 00:12] LABS: Calcium 9.7 mg/dL (8.6-10.3); Creatinine, Serum 1.2 mg/dL (0.51-0.95); Magnesium 2.2 mg/dL (1.9-2.7); Potassium 4.4 mmol/L (3.5-5.0); eGFR CKD-EPI 48.1 (>60)
[2022-07-31 06:56] LABS: ABS Basophils 0.1 10^3/ul (0-0.2); ABS Lymphocytes 4.2 10^3/ul (1.0-4.8); ABS Monocytes 0.7 10^3/ul (0-0.8); ABS Neutrophils 3.9 10^3/ul (1.5-7.7); Eosinophil % 0.3 %; Hematocrit 34 % (35-47); Hemoglobin 11.5 g/dL (12.0-16.0); Lymphocyte % 47.2 %; Mean Corpuscular HGB Conc 34 g/dL (31-36); Mean Corpuscular Hemoglobin 28 pg (27-31); Mean Corpuscular Volume 85 fL (80-97); Mean Platelet Volume 8.1 fL (7.4-10.4); Platelet Count 180 10^3/uL (150-450); Red Blood Count 4.06 10^6 /uL (3.70-4.87); Red Cell Distribution Width 15 % (10-15); White Blood Count 8.9 10^3/uL (3.5-10.8)
[2022-07-31 07:24] LABS: Calcium 9.4 mg/dL (8.6-10.3); Creatinine, Serum 1.17 mg/dL (0.51-0.95); Potassium 4.5 mmol/L (3.5-5.0); eGFR CKD-EPI 49.6 (>60)
[2022-07-31] MEDS ORDERED: Lactated Ringers 1000 ml BAG 1,000 ML IV SCH (09:00)
[2022-07-31] MEDS: Nystatin TOP POWDER 15 GM BTL TOPICAL SCH ×3 (12:36→21:11)
[2022-07-31] MEDS ORDERED: Remdesivir 100 mg Vial 200 MG in NS 0.9% 250 ml 210 ML IV ONE (12:40)
[2022-07-31] MEDS: Enoxaparin 40 MG/0.4 ML SYR SUBCUT SCH (21:14)
[2022-07-31] MEDS ORDERED: Lactated Ringers 1000 ml BAG 1,000 ML IV ONE (23:13)
[2022-08-01 06:19] LABS: ABS Eosinophils 0.1 10^3/ul (0-0.6); ABS Monocytes 0.5 10^3/ul (0-0.8); ABS Neutrophils 2.7 10^3/ul (1.5-7.7); Eosinophil % 1.5 %; Hematocrit 33 % (35-47); Hemoglobin 10.9 g/dL (12.0-16.0); Lymphocyte % 54.3 %; Mean Corpuscular HGB Conc 33 g/dL (31-36); Mean Corpuscular Hemoglobin 28 pg (27-31); Mean Corpuscular Volume 84 fL (80-97); Platelet Count 179 10^3/uL (150-450); Red Blood Count 3.91 10^6 /uL (3.70-4.87); Red Cell Distribution Width 15 % (10-15); White Blood Count 7.3 10^3/uL (3.5-10.8)
[2022-08-01 06:24] LABS: INR 1.05 (0.88-1.18)
[2022-08-01 06:41] LABS: Albumin 3.1 g/dL (3.2-5.2); Albumin/Globulin Ratio 2.1 (1-3); Calcium 9.2 mg/dL (8.6-10.3); Creatinine, Serum 1.06 mg/dL (0.51-0.95); Globulin 1.5 g/dL (2-4); Magnesium 1.6 mg/dL (1.9-2.7); Potassium 4.4 mmol/L (3.5-5.0); Total Bilirubin 0.2 mg/dL (0.2-1.0); Total Protein 4.6 g/dL (6.4-8.9); eGFR CKD-EPI 55.8 (>60)
[2022-08-01] MEDS ORDERED: Magnesium Sulfate 2 gm BAG 2 GM/50 ML BAG IVPB ONE (07:07)
[2022-08-01] MEDS ORDERED: Influenza vaccine *QUAD* *2022-23* 0.5 ML SYRINGE IM ONE (09:00)
[2022-08-01] MEDS: Nystatin TOP POWDER 15 GM BTL TOPICAL SCH ×3 (09:42→21:52)
[2022-08-01] MEDS: Remdesivir 100 mg Vial 100 MG in NS 0.9% 250 ml 230 ML IV SCH (13:13)
[2022-08-01] MEDS: guaiFENesin 100 mg/5 ml LIQ unit dose cup PO PRN ×2 (15:04→23:59)
[2022-08-01] MEDS: Enoxaparin 40 MG/0.4 ML SYR SUBCUT SCH (21:50)
[2022-08-02 06:41] LABS: ABS Eosinophils 0.2 10^3/ul (0-0.6); ABS Lymphocytes 3.3 10^3/ul (1.0-4.8); ABS Monocytes 0.4 10^3/ul (0-0.8); ABS Neutrophils 2.3 10^3/ul (1.5-7.7); Eosinophil % 2.5 %; Hematocrit 37 % (35-47); Hemoglobin 12.2 g/dL (12.0-16.0); Lymphocyte % 53.4 %; Mean Corpuscular HGB Conc 33 g/dL (31-36); Mean Corpuscular Hemoglobin 28 pg (27-31); Mean Corpuscular Volume 84 fL (80-97); Platelet Count 193 10^3/uL (150-450); Red Blood Count 4.36 10^6 /uL (3.70-4.87); Red Cell Distribution Width 15 % (10-15); White Blood Count 6.1 10^3/uL (3.5-10.8)
[2022-08-02 06:54] LABS: INR 0.99 (0.88-1.18)
[2022-08-02 07:02] LABS: Albumin 3.6 g/dL (3.2-5.2); Calcium 9.7 mg/dL (8.6-10.3); Creatinine, Serum 0.9 mg/dL (0.51-0.95); Globulin 1.8 g/dL (2-4); Potassium 4.4 mmol/L (3.5-5.0); Total Bilirubin 0.3 mg/dL (0.2-1.0); Total Protein 5.4 g/dL (6.4-8.9); eGFR CKD-EPI 67.9 (>60)
[2022-08-02] MEDS: Nystatin TOP POWDER 15 GM BTL TOPICAL SCH (09:04)
[2022-08-02] MEDS: Remdesivir 100 mg Vial 100 MG in NS 0.9% 250 ml 230 ML IV SCH (09:46)
[2022-08-02 09:57] VITALS: BP 142/70
== END 2022-08-02 14:15 | disposition home or self-care (01) | DRG 177 ==
LOC: EDHOLD 10:05 → ED 10:05 → MED 17:08 → SUATTDRO 07-31 12:31
PROVIDERS: ADMIT Student in an Organized Health Care Education/Training Program; ATTEND Internal Medicine